=== PATIENT | male | born 1965 | race Caucasian/White ===

== ENCOUNTER 2017-02-07 16:11 | Emergency (ER) | payer OTHER ==
[2017-02-07 18:09] LABS: Urine Bacteria Absent (Absent); Urine Bilirubin Negative (Negative); Urine Glucose 3+(>=500 mg/dL) (Negative); Urine Nitrite Negative (Negative)
[2017-02-07 18:56] LABS: Hematocrit 46 % (42-52); Hemoglobin 15.3 g/dl (14.0-18.0); Mean Corpuscular HGB Conc 33 g/dl (31-36); Mean Corpuscular Hemoglobin 31 pg (27-31); Mean Corpuscular Volume 93 fL (80-94); Mean Platelet Volume 8 um3 (7.4-10.4); Red Blood Count 4.93 10^6/ul (4.0-5.4); Red Cell Distribution Width 14 % (10.5-15); White Blood Count 7.2 10^3/ul (3.5-10.8)
[2017-02-07 19:13] LABS: BUN/Creatinine Ratio 15.5 (8-20); Calcium 9.5 mg/dL (8.6-10.3); EGFR African American 149.2 (>60); EGFR Non-African American 116.1 (>60); Potassium 3.6 mmol/L (3.5-5.0)
[2017-02-07 19:43] VITALS: BP 141/88
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
== END 2017-02-07 19:42 | disposition home or self-care (01) ==
LOC: ED 16:11
DX: R33.9 Retention of urine, unspecified (principal); R30.0 Dysuria; R10.9 Unspecified abdominal pain; F17.210 Nicotine dependence, cigarettes, uncomplicated
CPT/HCPCS: 36415; 80048; 81003; 81015; 85027; 99282

== ENCOUNTER 2017-05-18 13:47 | Emergency (ER) | payer OTHER ==
[2017-05-18 15:37] VITALS: BP 161/81
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
== END 2017-05-18 16:35 | disposition home or self-care (01) ==
LOC: ED 13:47
DX: T23.071A Burn of unspecified degree of right wrist, initial encounter (principal); X08.8XXA Exposure to other specified smoke, fire and flames, initial encounter; Y93.89 Activity, other specified; Y92.9 Unspecified place or not applicable
CPT/HCPCS: 99282

== ENCOUNTER 2017-11-05 14:18 | Emergency (ER) | payer OTHER ==
[2017-11-05 14:26] VITALS: BP 143/74
--- OUTSIDE RECORDS SUMMARY | 2017-11-05 15:06 | XMS REPORT ---
:1965 External Reference #:[id number] Author Organization [facility] Address [address] [place] [address] Phone [phone] Care Team Providers Name Role Phone Louie Walker M.D. Primary Care Physician Unavailable Payers Type Date Identification Numbers Payment Provider Subscriber Commercial Policy Number: [id number] [facility] Cesar Loomis PayID: [id number] [place] [address] Problems Date Description Provider Status Onset: 02/08/2012 Alcohol dependence FITO BrownP-Alpa Active Onset: 02/08/2012 Tobacco user BRAD Brown-Alpa Active Onset: 02/08/2012 Type 2 diabetes mellitus FITO BrownP-Alpa Active Onset: 02/08/2012 Pure hypercholesterolemia Danielle Morse [employer] Active Onset: 02/08/2012 Depressive disorder FITO BrownP-Alpa Active Onset: 02/08/2012 Chronic ischemic heart disease Danielle Morse [employer]pa Active Onset: 02/08/2012 Essential hypertension Danielle Morse [employer] Active Onset: 12/07/2014 Carotid bruit FITO BrownP-C Active Family History Date Family Member(s) Problem(s) Comments : (age 67 Years) Father due to Cancer, Colon : (age 85 Years) Mother due to COPD Children 2 Children stepdaughters. 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 He is less often. working on cutting down by drinking Recreational Drug Use Denies Drug Use Smoking Patient is a current smoker, smokes every day Exercise Type/Frequency Does not exercise currently Exercise Type/Frequency , Allergies, Adverse Reactions, Alerts Date Description Reaction Status Severity Comments 09/08/2008 NKDA active Medications Medication Date Status Form Strength Qnty SIG Indications Ordering Provider Cyclobenzaprine 10/12 Active Tablets 10mg 30tabs take 1/2 M54.13 Shawnti R. HCL or 1 Storm, tablet [employer] by mouth three times a day for muscle spasm will cause tirednes s Ibuprofen 10/12 Active Tablets 800mg 60tabs take one M54.13 Angelwnti R. /2016 tablet Storm, by mouth [employer] every 8 hours with food as needed for pain Oxycodone-Acetam 09/10 Active Tablets 5-325mg 14tabs 1 by M54.32 Angelwnti R. inophen mouth [place], every 4 [employer] hours if needed for severe pain Wellbutrin SR 06/22 Active Tablets 150mg 60tabs 1 by Z72.0 Angelwnti R. /2016 ER 12HR mouth [place], twice [employer] daily Novolog Flexpen 02/23 Active Solution 100Unit/ML 15ml inject 5 E11.65 Angelwnti R. Pen-Injec units Storm, t under [employer] the skin three times a day before meals as directed Freestyle Lite 01/22 Active Strips 200unit use for E13.9 Shawnti R. Test s glucose Storm, monitori [employer] ng 5-6 times daily Lantus Solostar 01/05 Active Solution 100Unit/ML 30ml inject E11.40 Angelwnti R. /2016 Pen-Injec 40 units Storm, t once [employer] daily for diabetes Novofine 01/05 Active Misc 30G X 8 mm 100unit use E11.40 Angelwnti R. /2016 s daily Storm, with [employer] lantus pen to administ er insulin daily Gabapentin 10/24 Active Capsules 300mg 120caps take two M54.32 Shawnti R. /2015 by mouth Storm, in the [employer] morning and two by mouth before bed Marysol Contour 11/19 Active Kit W/Device 1units use to E11.65 Angelwnti R. Blood Glucose /2014 test Storm, Monitoring blood [employer] System sugar daily for diabetes Marysol Contour 11/19 Active Strips 100unit test 2 E11.65 Shawnti R. Blood Glucose /2014 s times Storm, Test Strips per day [employer] Lancets Ultra 11/19 Active Misc Thin 30G 100unit use to E11.65 Shawnti R. Thin 30G /2014 s test Storm, blood [employer] sugars twice daily and as needed Freestyle 04/21 Active Misc 100unit use to 250.00 Shawnti R. Lancets /2012 s test Storm, blood [employer] sugars 4-5 times daily as needed Freestyle Test 04/18 Active Strips 1Bottle use to E11.9 Shawnti R. /2009 check Storm, blood [employer] sugars four times daily Lancets--One 04/18 Active Misc 100unit use 250.00 Shawnti R. Touch Ultra Soft /2009 s daily as Storm, directed [employer] to test blood sugar Tamsulosin HCL Active Capsules 0.4mg 2 tabs Ese, /0000 daily MD Titus Metoprolol Active Tablets 25mg Unknown Succinate ER /0000 ER 24HR Aspir-81 00 Active Tablets 325mg 1 by Unknown /0000 DR mouth every day Combivent 08/20 Hx Aerosol 20-100mcg/A 12gm 2 puff J44.9 Ramón Respimat /2017 ct twice a [place], - day 10/12 Proair HFA 08/20 Hx Aerosol 108(90Base) 8.500gm 1-4 J44.9 Ramón /2017 mcg/Act puffs [place], - every 6 MD 10/12 hours needed Spacer, 08/20 Hx 1units 1 use to J44.9 Ramón Pediatric /2017 inhale [place], - medicati MD 10/12 ons Combivent 08/18 Hx Aerosol 18-103mcg/A 1units Inhale 2 ct puffs 2 - (two) 10/12 times a day Nicoderm CQ 06/22 Hx Patches 21mg/24HR 14units apply Z72.0 Shawnti R. 24HR one Storm, - patch to [facility] 10/12 skin, replace daily for up to 14 days then reduce to 14mg patch Nicoderm CQ 06/22 Hx Patches 14mg/24HR 28units apply Z72.0 Shawnti R. 24HR one Storm, - patch to [facility] 10/12 skin, replace daily for up to 28 days then go to 7mg Nicoderm CQ 06/22 Hx Patches 7mg/24HR 14units apply 1 Z72.[address] to [facility], - skin [facility]- 10/12 for 14 days Nicotrol 06/01 Hx Inhaler 10mg 336unit inhale 1 Haylie s imerg Francheska, - e Raffi, R.D. 08/20 inhaled orally repeated ly like a cigarett e 16 times per day as needed for smoking cessatio n Sulfamethoxazole 04/27 Hx Tablets 800-160mg 14tabs 1 by Haylie /Trimethoprim mouth Francheska, - twice a MIshan, R.D. Lidocaine-Transp 03/19 Hx Kit 4% 1units [facility] Storm, - area [facility]- 04/27 once daily, do not leave on for more than 12 hours Ibuprofen 01/05 Hx Tablets 800mg 90tabs take one M54.32 Shawnti R. /2016 tablet Storm, - by mouth [facility] 08/20 every hours with food as needed for pain Lidocaine 01/05 Hx Patches 5% 30units apply M54.32 Shawnti R. one [place], - patch to [employer] 03/19 low back every night, remove in the morning Prednisone 12/22 Hx Tablets 20mg 13tabs 3 by M54.17 Danielle RReagan mouth [place], - every [employer] 01/01 day x 2days, 2 by mouth every day x 2 days, 1 by mouth every day x 2 days, 1/2 by mouth every day x 2 days Thiamine HCL 12/22 Hx Tablets 100mg 90tabs 1 by M54.17 Danielle RReagan mouth [place], - every [employer] Folic + B12 12/22 Hx Tablets 800-1000mcg 90tabs 1 po M54.17 Danielle RReagan daily Storm, - [employer] 04/27 Metaxalone 07/07 Hx Tablets 800mg 30tabs 1 tab by M54.32 Mynor mouth Placida - three III, [employer] 10/24 times day for muscle spasm Guaifenesin 03/07 Hx Syrup 100mg/5ML 300unit 2 s teaspoon Placida - every III, [employer] 10/24 4- hours for cough and chest congesti on Augmentin 02/01 Hx Tablets 875-125mg 20tabs 1 take J20.9 by mouth [place], - tablet 10/24 every hours for 10 days for infectio n Cortisporin 12/30 Hx Solution 3.5-09913-1 60units 4 left H60.392 ear Heetjeffry, - christy VALIENTE 10/24 times day Clotrimazole 12/30 Hx Solution 1% 90units 3 drops B37.84 left ear Heetjeffry, - three 10/24 times day Glipizide 10/28 Hx Tablets 5mg 60tabs 1 po bid E11.65 Danielle Dockery for Storm, - diabetes [employer] 10/24 , take with food Bupropion HCL ER 10/11 Hx Tablets 150mg 90tabs take 1 F33.1 Danielle Dockery (XL) ER 24HR tablet Storm, - by mouth [employer] 02/01 morning Metformin HCL 10/11 Hx Tablets 500mg 60tabs take one E11.65 Danielle Dockery /2014 tablet Storm, - by mouth [employer] 10/28 twice a day with food Hydrocodone-Acet 07/29 Hx Tablets 5-325mg 30tabs 1 or 2 M25.511 Danielle Dockery aminophen /2014 po QHS Storm, - prn pain [employer] 10/11 Omeprazole 07/29 Hx Capsules 40mg 90caps 1 by K21.0 Danielle Dockery /2014 DR janett Morse, - every [employer] Amoxicillin/Clav 01/07 Hx Tablets 875-125mg 20tabs 1 by 486 Danielle Dockery ulanatchristina /2014 mouth Storm, Potassium - twice a [employer] 01/17 day for 10 days for infectio n Ventolin HFA 01/07 Hx Aerosol 108(90Base) 8gm inhale Mynor /2014 mcg/Act two Placida - puffs by III, [employer] 04/27 mouth every 4-6 hours as needed for wheezing /SOB Viagra 11/19 Hx Tablets 100mg 2tabs take N53.8 Danielle Dockery one-half Storm, - to one [employer] 10/11 tablet /2014 before intercou rse Levemir 11/19 Hx Solution 100Unit/ML 15ml inject E11.65 Danielle Dockery Flextouch Pen-Injec 10 units , - t before [employer] 10/11 bed, increase dose by 5 units every 3 days until fasting glucose is under 200 Novofine 11/19 Hx Misc 30G X 8 mm 50units use E11.65 Danielle Dockery /2014 daily Storm, - with [employer] 10/28 levimir flexpen Levitra 10/16 Hx Tablets 10mg 10tabs take 1 608.89 Danielle Dockery tablet Storm, - by mouth [employer] 10/16 as needed prior to intercou rse. Fluoxetine HCL 10/15 Hx Capsules 20mg 30caps 1 by F33.1 Danielle Dockery mouth Storm, - every [employer] Metformin HCL 10/15 Hx Tablets 500mg 60tabs take one 250.02 Shawnti R. tablet Storm, - by mouth [facility]- 11/19 twice a day with food Viagra 10/15 Hx Tablets 50mg 10tabs use 11/13 608.89 Shawnti R. to 1 tab Storm, - 1/2hr [facility]- 10/16 prior to activity Lidocaine 07/02 Hx Patches 5% 60units apply 726.19 Shawnti R. patch to Storm, - the [facility] 10/11 painful area before, remove in the morning, do not leave on for more than 12 hours. can apply up to 2 Voltaren 09/25 Hx Gel 1% 300gm apply Shawnti R. pea Storm, - sized [facility]- 10/11 amount of gel to the shoulder qid prn pain Tizanidine HCL 08/14 Hx Tablets 4mg 30tabs take one 728.85 Shawnti R. by mouth Storm, - before [facility] 10/11 bed if needed for pain and muscle spasm Naltrexone HCL 06/18 Hx Tablets 50mg 30tabs 1 po 303.90 Shawnti R. /2012 daily Storm, - [facility]- 07/02 Campral 06/16 Hx Tablets 333mg 90tabs 1 po tid 303.[address] Morse, - [facility]- 06/18 Nicoderm CQ 06/16 Hx Patches 21mg/24HR 14units apply 1 305.1 Shawnti R. 24HR patch to Storm, - skin, [facility]- 07/02 change /2013 daily for 14 days.the n go to 14mg dose Nicoderm CQ 06/16 Hx Patches 14mg/24HR 14units apply 305.1 Shawnti R. /2012 24HR one , - patch to [facility]- 07/02 skin, replace daily for 14 days, start after 21mg patches complete d. Nicoderm CQ 06/16 Hx Patches 7mg/24HR 14units apply 305.1 Shawnti R. /2012 24HR one Storm, - patch to [facility]- 07/02 skin, change daily for three weeks, start after 14mg dose is complete Fluoxetine HCL 06/16 Hx Capsules 40mg 30caps take 1 311 Shawnti R. capsule Brody, - once [employer] 07/02 daily for depressi on Fluoxetine HCL 05/08 Hx Capsules 20mg 90caps 1 po qd 311 Shawnti R. for Storm, - depressi [employer] 06/16 on Metformin HCL ER 05/08 Hx Tablets 500mg 30tabs take one 250.02 Shawnti R. ER 24HR tablet Brody, - by mouth [employer] 07/02 every day for diabetes Levemir Flexpen 04/21 Hx Solution 100Unit/ML 30ml inject 250.00 Shawnti R. 10 units , - daily [employer] 07/02 fatty tissue, increase dose by 2 units every other day until morning blood sugars are under 150 Flex Pen [place] 04/21 Hx 30units use with 250.00 Shawnti R. levmir Brody, - daily to [employer] 07/02 inject insulin Freestyle Test 04/21 Hx Strips 200unit use to E13.9 Haylie Strips s nadia Pritchard, - blood M.Shorty, R.D. 01/22 4-5 times daily Thiamine HCL 04/14 Hx Tablets 100mg 90tabs 1 po qd 303.90 Shawnti R. , - [employer] 07/02 Folic Acid 04/14 Hx Tablets 1mg 90tabs 1 po qd 303.90 Shawnti R. , - [employer] 07/02 Naproxen Ec 04/14 Hx Tablets 500mg 20tabs 1 po bid 451.[address] aleyda Morse, - needed [employer] 07/02 phlebiti sm, take with food Gentamicin 09/09 Hx Ointment 0.1% 1tube 1 cm 372.00 Shawnti R. colby Morse, - qid left [employer] 05/08 eye for 5 days or until resolved Azithromycin 01/25 Hx Tablets 250mg 6tabs take 2 461.8 Delmy tablets LoveReagan Hester, - po today M.D. 05/08 and tablet po daily days 2-5 Loratadine 01/25 Hx Tablets 10mg 30tabs 1 po qd 461.8 Delmy /2011 LoveReagan Hester, - M.D. 05/08 Chantix 06/26 Hx Tablets 0.5mg X 11 1month take by Angelwnti R. /2010 & 1 mg mouth as Storm, - X directed [employer] [employer] 05/08 Antabuse 12/01 Hx Tablets 500mg 30tabs 1 po qam 303.90 Shawnti R. [place], - [employer] 05/08 Nicoderm CQ 12/01 Hx Patches 21mg/24HR 14units apply 1 305.1 Shawnti R. 24HR patch to Storm, - skin, [employer] 05/08 change daily for 14 days.the n go to 14mg dose Nicoderm CQ 12/01 Hx Patches 14mg/24HR 14units apply 305.1 Shawnti R. 24HR one Storm, - patch to [employer] [employer] 05/08 skin, replace daily for 14 days, start after 21mg patches complete d. Nicoderm CQ 12/01 Hx Patches 7mg/24HR 14units apply 305.1 Shawnti R. 24HR one , - patch to [employer] 05/08 skin, change daily for two weeks, start after 14mg dose is complete Prozac 11/15 Hx Capsules 20mg 90caps 1 po qd 311 Shawnti R. /2010 for Storm, - depressi [employer] 05/08 on Aspirin 06/20 Hx Tablets 325mg 1 daily 414.9 Angelwnti R. /2009 for Storm, - heart [employer] 05/08 Carvedilol 06/20 Hx Tablets 3.125mg 1 po bid 414.9 Shawnti R. /2009 for Storm, - heart [employer] 05/08 Plavix 06/20 Hx Tablets 75mg 1 po qd 414.9 Angelwnti R. for Storm, - heart [employer] 05/08 Simvastatin 06/20 Hx Tablets 80mg 1 po qhs 414.9 Shawnti R. /2009 for Storm, - choleste [employer] 05/08 rol Metformin HCL ER 05/23 Hx Tablets 750mg 30tabs 1 po 250.00 Shawnti R. ER 24HR daily Storm, - for [employer] 05/08 Diabetes Glipizide ER 05/23 Hx Tablets 2.5mg 30tabs 1 po 250.00 Shawnti R. ER 24HR daily Storm, - for [employer] 05/08 diabetes Metformin HCL 05/02 Hx Tablets 500mg 30tabs 1 po qam 250.00 Shawnti R. ER 24HR for Storm, - diabetes [employer] 05/23 Omeprazole 04/18 Hx Tablets 20mg 30tabs on po 535.[address] seth-ac Brody, - for [employer] 06/20 stomach acid Freestyle 04/18 Hx Glucometer 1Meter use to 250.00 Shawnti R. Monitor /2009 test Storm, - blood [employer] 05/08 sugars Contour Blood 04/18 Hx Kit w/Device 1meter use as 250.00 Shawnti R. Glucose System /2009 directed Storm, - to test [employer] 04/18 blood sugar Zithromax Z-Rambo 11/30 Hx Tablets 250mg 6tabs 2 po on 466.0 Mariajose A. /2009 day 1, 1 [place], - po on [facility] 04/18 days 2- Augmentin 05/13 Hx Tablets 875mg 20tabs one po 522.5 Shawnti R. /2008 bid for Storm, - dental [employer] 05/23 infectio n Naprosyn Ec 05/13 Hx Tablets 500mg 60tabs 1 po bid 522.5 Shawnti R. /2008 with Storm, - food for [employer] 05/02 pain, /2009 stop taking if stomach pain develops Vicodin 05/13 Hx Tablets 5-500mg twenty 1-2 tabs 522.5 Shawnti R. /2008 po q6hr Storm, - prn pain [employer] 05/28 Chlorhexidine 05/13 Hx Solution 0.12% 1Bottle rinse 522.5 Shawnti R. Gluconate /2008 and spit Brody, - 10ml [employer] 04/18 twice daily for mouth bacteria Nicoderm CQ 03/15 Hx Patches 21mg/24HR 21units apply 1 305.1 Mariajose A. 24HR patch to [place], - skin [facility] 05/02 daily Nicotrol Inhaler 07/29 Hx Inhaler 10mg 1Box Use as 305.1 Mariajose A. /2007 Directed [place], - 6-16 [facility] 05/02 cartrid es per day Physical Therapy 07/29 Hx evaluate 724.5 Mariajose A. and [place] - treat [facility] 05/02 neck and back pain Ibuprofen 07/29 Hx Tablets 600mg 30tabs One PO 724.5 Mariajose A. bid with [place], - food [facility] 05/02 Chantix 06/12 Hx Misc Starter QS Use as 305.1 Mariajose A. Pack Directed [place] - [facility] 06/12 Chantix 06/12 Hx Misc Starter QS Use as 305.1 Mariajose A. Pack Directed [place], - [facility] 07/29 Prilosec OTC 01/22 Hx Tablets 20mg 60tabs 1 PO bid 530.81 Mariajose A. /2007 DR Porter, - [facility] 05/02 Metformin HCL 12/19 Hx Tablets 500mg 120tabs 2 PO bid 250.00 Mariajose A. /2007 as [place], - Directed [facility] 12/19 Januvia 12/19 Hx Tablets 100mg 30tabs 1 PO qd 250.00 Mariajose A. Tatyana Porter [facility] 05/02 Keflex 06/27 Hx Capsules 500mg 20caps One PO 250.00 Mariajose A. /2006 bid For [place], - 10 Days [facility] 07/11 Zithromax Z-Rambo 03/08 Hx Tablets 250mg 6tabs 2 po on 466.0 Mariajose A day 1, 1 [place], - po on [facility] 03/29 days 2- Robitussin A-c 03/08 Hx Syrup 100mg;10mg/ 8Oz one to 466.0 Mariajose 5ML two tsp [place], - po every [facility] 03/29 hours prn cough Vermox 01/14 Hx Chewtabs 100mg 2units one qd Mariajose x1 for [place], - pinworm, [facility] 03/29 x1 after 7 days Wellbutrin SR 12/13 Hx 3 150mg 60units 1 po bid 311 Mariajose [place], - [facility] 03/08 Paxil 10/18 Hx Tablets 20mg 30tabs 1 PO qd 311 Mariajose A [place], - [facility] 12/13 Glucophage 10/01 Hx Tablets 500mg 90tabs 1 before 250.00 Mariajose A breakfas [place], - t, 1 [facility] 06/12 before lunch, 1 before dinner Keftab 08/29 Hx Tablets 500mg 15tabs tab po 250.00 Esperanza /2006 tid ac VADIM Walter - 12/13 Protonix 18 Hx Tablets 40mg 250.00 Esperanza /2006 VADIM Walter - 12/13 Prilosec OTC 01/01 Hx Capsules 20mg 30caps 1 po 787.2 Mariajose A qday [place], - [facility] 12/26 530.81 Fluoxetine 01/10/2005 - Hx Capsules 20mg 30caps use 1 tabs 311 Nevin 10/18/2006 A day Raffi Becerra Z-Rambo 12/19/2004 - Hx Tablets 250mg 6tabs use 2 tabs Nevin 01/10/2005 on day 1, Sobhector, then 1 tab M.D. a day Lancets-Micro 05/24/2004 - Hx 60units use bid 250.00 Nevin let 05/08/2013 Raffi Becerra Accu-Chek 03/22/2004 - Hx Meter 1units use bid 250.00 Nevin Advantage 05/08/2013 Joyce Becerra M.D. Accucheck 03/22/2004 - Hx 100units use bid 250.00 Mariajose A. Comfort Curve 05/08/2013 [place] Test Strips [facility]. dx: diabetes mellitus Accu-Chek 03/22/2004 - Hx Lancets 100units use bid 250.00 Nevin Safe-T-Pro 05/08/2013 Jabier Becerra M.D. Glucotrol XL 03/18/2004 - Hx Tablets 10mg 30tabs use 1 tab 250.00 Mariajose A. 05/02/2010 once daily Jennifer Porter.N.P.CReagan Glucometer 12/15/2002 - Hx Ascensia 60units check fs Nevin Elite Test 12/19/2004 bid-tid as Agnes Becerra directed Raffi Eugene 12/15/2002 - Hx 60units use as 250.00 Nevin 05/08/2013 directed Raffi Becerra Ceftin 10/01/2002 - Hx Tablets 500mg 20tabs one bid x10 Aide Noe 03/16/2004 days Raffi Willams Albuterol 10/01/2002 - Hx Inhaler 17gm 2- puffs q Aide Noe Metered Dose 06/12/2008 4hrs prn Raffi Willams Inhaler wheezing Humibid DM 10/01/2002 - Hx Tablets 40tabs take two Aide Noe 03/16/2004 tablets by Raffi Willams mouth twice daily along with lots of liquids Ibuprofen 10/01/2002 - Hx 600mg 30units one po tid Aide P. Tablets 04/17/2005 with food Raffi Willams prn Lipitor - Hx Tablets ? 272.0 Unknown 11/26/2006 Plavix - Hx Tablets 75mg one po qd Unknown 05/02/2010 Metoprolol - Hx Tablets 50mg 1 po bid Unknown 07/11/2007 Lisinopril - Hx Tablets 5mg one po qd 401.9 Unknown 06/12/2008 Zocor - Hx Tablets 20mg 30tabs q po qd 272.0 Mariajose A. 05/02/2010 Tiffanie Porter Aspirin - Hx Gelcaps 325mg Unknown 05/02/2010 Metoprolol - Hx Tablets 100mg one po qd 401.9 Unknown 05/02/2010 Lisinopril - Hx Tablets 10mg 3 PO qd 401.9 Unknown 05/02/2010 Oxycodone-Ronny - Hx Tablets 5-325mg 1 by mouth Unknown taminophen 09/10/2017 every 6 hours as needed severe pain Vitamin C - Hx Tablets 500mg 1 by mouth Unknown 08/20/2017 every day Immunizations CPT Code Status Date Vaccine Lot # [id number] Given 08/20/2017 Pneumovax 23 (PPSV23) 65+ years or high risk 2 to [id number] 62 year old 46565 Given 08/20/2017 Influenza Virus Vaccine, Quadrivalent, 3 Yr > [id number], Preserv Free 44047 Given 04/19/2017 Tdap (Adacel) [id number] 28434 Given 12/19/2004 Tetanus 21044 Given 12/15/2004 Tetanus 20076 Refused 12/30/2015 Influenza Virus Vaccine, Quadrivalent, 3 Yr > Quad, Preserv Free Vital Signs Date Vital Result Comment 10/12/2017 BP Systolic 118 mmHg BP Diastolic 66 mmHg Heart Rate 84 /min Body Temperature 98.4 F O2 % BldC Oximetry 98 % 09/25/2017 Weight 160.00 lb Weight in kg's 72.576 BP Systolic 110 mmHg BP Diastolic 64 mmHg Heart Rate 76 /min Body Temperature 96.7 F Respiratory Rate 16 /min 09/10/2017 Weight 156.00 lb Weight in kg's 70.762 BP Systolic 120 mmHg BP Diastolic 60 mmHg Heart Rate 76 /min Body Temperature 98.4 F O2 % BldC Oximetry 98 % 08/20/2017 Weight 167.00 lb Weight in kg's 75.751 BP Systolic 120 mmHg BP Diastolic 70 mmHg Heart Rate 88 /min Body Temperature 99.1 F O2 % BldC Oximetry 97 % 06/22/2017 Weight 165.00 lb Weight in kg's 74.844 BP Systolic 138 mmHg BP Diastolic 78 mmHg Heart Rate 80 /min Body Temperature 98.4 F Respiratory Rate 16 /min 04/27/2017 Weight 170.00 lb Weight in kg's 77.112 BP Systolic 168 mmHg BP Diastolic 88 mmHg Heart Rate 103 /min Body Temperature 97.8 F Respiratory Rate 16 /min O2 % BldC Oximetry 98 % 04/19/2017 BP Systolic 148 mmHg BP Diastolic 80 mmHg Heart Rate 88 /min Body Temperature 98.6 F Respiratory Rate 20 /min 03/19/2017 Weight 168.00 lb Weight in kg's 76.205 BP Systolic 176 mmHg BP Diastolic 94 mmHg Heart Rate 88 /min Body Temperature 97.6 F Respiratory Rate 20 /min O2 % BldC Oximetry 99 % 02/23/2017 Weight 164.00 lb Weight in kg's 74.390 BP Systolic 130 mmHg BP Diastolic 78 mmHg Heart Rate 88 /min Body Temperature 97.7 F Respiratory Rate 20 /min 02/02/2017 Weight 170.00 lb Weight in kg's 77.112 BP Systolic 155 mmHg BP Diastolic 78 mmHg Heart Rate 88 /min 01/05/2017 BP Systolic 130 mmHg BP Diastolic 80 mmHg Heart Rate 92 /min Body Temperature 98.6 F 12/22/2016 Weight 174.00 lb Weight in kg's 78.926 BP Systolic 150 mmHg BP Diastolic 80 mmHg Heart Rate 94 /min Body Temperature 97.9 F Respiratory Rate 14 /min 10/24/2016 Weight 179.00 lb Weight in kg's 81.194 BP Systolic 142 mmHg BP Diastolic 88 mmHg Heart Rate 102 /min Body Temperature 97.7 F Respiratory Rate 18 /min Height 68 inches 5'8" BMI (Body Mass Index) 27.2 kg/m2 O2 % BldC Oximetry 99 % 07/07/2016 Weight 172.00 lb Weight in kg's 78.019 BP Systolic 130 mmHg BP Diastolic 82 mmHg Heart Rate 92 /min Body Temperature 99.2 F Respiratory Rate 32 /min 03/07/2016 Weight 169.00 lb Weight in kg's 76.658 BP Systolic 130 mmHg BP Diastolic 80 mmHg Heart Rate 96 /min Body Temperature 97.3 F O2 % BldC Oximetry 98 % 02/02/2016 Weight 170.00 lb with boots Weight in kg's 77.112 BP Systolic 134 mmHg BP Diastolic 80 mmHg Heart Rate 89 /min O2 % BldC Oximetry 98 % 01/25/2016 Weight 171.00 lb Weight in kg's 77.566 BP Systolic 126 mmHg BP Diastolic 68 mmHg Heart Rate 92 /min Body Temperature 100.2 F O2 % BldC Oximetry 98 % 12/30/2015 Weight 171.00 lb Weight in kg's 77.566 BP Systolic 136 mmHg BP Diastolic 80 mmHg Heart Rate 88 /min Body Temperature 97.4 F 10/28/2015 Weight 175.00 lb Weight in kg's 79.380 BP Systolic 150 mmHg BP Diastolic 80 mmHg Heart Rate 92 /min 10/11/2015 Weight 175.00 lb Weight in kg's 79.380 BP Systolic 150 mmHg BP Diastolic 90 mmHg Heart Rate 88 /min 10/04/2015 Weight 175.00 lb Weight in kg's 79.380 BP Systolic 140 mmHg BP Diastolic 74 mmHg Heart Rate 98 /min Body Temperature 98.4 F 07/29/2015 Weight 169.00 lb Weight in kg's 76.658 BP Systolic 160 mmHg BP Diastolic 90 mmHg Heart Rate 96 /min 02/04/2015 Weight 172.00 lb Weight in kg's 78.019 BP Systolic 120 mmHg BP Diastolic 80 mmHg Heart Rate 100 /min Body Temperature 97.9 F 01/07/2015 Weight 169.00 lb Weight in kg's 76.658 BP Systolic 160 mmHg BP Diastolic 80 mmHg Heart Rate 108 /min Body Temperature 98.9 F O2 % BldC Oximetry 99 % 12/07/2014 Weight 173.00 lb Weight in kg's 78.473 BP Systolic 158 mmHg BP Diastolic 82 mmHg Heart Rate 92 /min 11/19/2014 Weight 173.00 lb Weight in kg's 78.473 BP Systolic 150 mmHg BP Diastolic 78 mmHg Heart Rate 84 /min 10/15/2014 Weight 171.00 lb Weight in kg's 77.566 BP Systolic 136 mmHg BP Diastolic 72 mmHg Heart Rate 80 /min Height 68 inches 5'8" BMI (Body Mass Index) 26.0 kg/m2 07/02/2014 Weight 169.00 lb Weight in kg's 76.658 BP Systolic 128 mmHg BP Diastolic 74 mmHg Heart Rate 92 /min 09/25/2013 Weight 178.00 lb Weight in kg's 80.741 BP Systolic 132 mmHg BP Diastolic 92 mmHg Heart Rate 100 /min Body Temperature 98.3 F 08/14/2013 Weight 183.00 lb Weight in kg's 83.009 BP Systolic 140 mmHg BP Diastolic 84 mmHg Heart Rate 80 /min 06/16/2013 Weight 178.00 lb Weight in kg's 80.741 BP Systolic 150 mmHg BP Diastolic 70 mmHg Heart Rate 96 /min 05/08/2013 Weight 168.00 lb Weight in kg's 76.205 BP Systolic 140 mmHg BP Diastolic 80 mmHg Heart Rate 104 /min 04/21/2013 Weight 172.00 lb Weight in kg's 78.019 BP Systolic 152 mmHg BP Diastolic 84 mmHg Heart Rate 88 /min 04/14/2013 Weight 166.00 lb Weight in kg's 75.298 BP Systolic 150 mmHg BP Diastolic 80 mmHg Heart Rate 102 /min 09/23/2012 Weight 174.00 lb Weight in kg's 78.926 BP Systolic 154 mmHg BP Diastolic 64 mmHg Heart Rate 100 /min Body Temperature 99.0 F Height 68 inches 5'8" BMI (Body Mass Index) 26.5 kg/m2 O2 % BldC Oximetry 99 % 09/09/2012 Weight 173.00 lb Weight in kg's 78.473 BP Systolic 136 mmHg BP Diastolic 86 mmHg Heart Rate 100 /min Body Temperature 98.0 F 01/26/2012 Weight 184.00 lb Weight in kg's 83.462 BP Systolic 130 mmHg BP Diastolic 80 mmHg Heart Rate 100 /min Body Temperature 99.1 F Last Menstrual Period 0 O2 % BldC Oximetry 99 % At Room Air 12/01/2010 Weight 191.00 lb Weight in kg's 86.638 BP Systolic 128 mmHg BP Diastolic 68 mmHg Heart Rate 85 /min O2 % BldC Oximetry 98 % 11/15/2010 Weight 190.00 lb Weight in kg's 86.184 BP Systolic 142 mmHg BP Diastolic 84 mmHg Heart Rate 92 /min 07/21/2010 Weight 182.00 lb With Shoes On Weight in kg's 82.555 BP Systolic 102 mmHg BP Diastolic 70 mmHg Heart Rate 62 /min 06/20/2010 Weight 182.00 lb Weight in kg's 82.555 BP Systolic 110 mmHg BP Diastolic 68 mmHg Heart Rate 104 /min 05/23/2010 Weight 172.00 lb Weight in kg's 78.019 BP Systolic 126 mmHg BP Diastolic 70 mmHg Heart Rate 112 /min 05/02/2010 Weight 170.00 lb Weight in kg's 77.112 BP Systolic 140 mmHg BP Diastolic 98 mmHg Heart Rate 100 /min 04/18/2010 Weight 168.00 lb Weight in kg's 76.205 BP Systolic 144 mmHg BP Diastolic 90 mmHg Heart Rate 112 /min 11/30/2009 Weight 184.00 lb Weight in kg's 83.462 BP Systolic 150 mmHg BP Diastolic 96 mmHg Heart Rate 110 /min Body Temperature 98.1 F O2 % BldC Oximetry 99 % 05/13/2009 Weight 192.00 lb Weight in kg's 87.091 BP Systolic 138 mmHg BP Diastolic 70 mmHg Heart Rate 78 /min Body Temperature 98.2 F 03/15/2009 Weight 199.00 lb Weight in kg's 90.266 BP Systolic 162 mmHg BP Diastolic 100 mmHg Heart Rate 96 /min 09/08/2008 Weight 201.00 lb Weight in kg's 91.174 BP Systolic 28 mmHg BP Diastolic 80 mmHg Heart Rate 76 /min Height 68 inches 5'8" BMI (Body Mass Index) 30.6 kg/m2 08/31/2008 Weight 203.00 lb Weight in kg's 92.081 BP Systolic 100 mmHg BP Diastolic 68 mmHg Heart Rate 78 /min Height 68 inches 5'8" BMI (Body Mass Index) 30.9 kg/m2 07/29/2008 Weight 197.00 lb Weight in kg's 89.359 BP Systolic 148 mmHg BP Diastolic 80 mmHg Heart Rate 72 /min Height 68 inches 5'8" BMI (Body Mass Index) 30.0 kg/m2 06/12/2008 Weight 193.00 lb Weight in kg's 87.545 BP Systolic 116 mmHg BP Diastolic 70 mmHg Heart Rate 76 /min Height 68 inches 5'8" BMI (Body Mass Index) 29.3 kg/m2 01/23/2008 Weight 208.00 lb Weight in kg's 94.349 BP Systolic 104 mmHg BP Diastolic 62 mmHg Heart Rate 72 /min Height 68 inches 5'8" BMI (Body Mass Index) 31.6 kg/m2 12/19/2007 Weight 206.00 lb Weight in kg's 93.442 BP Systolic 116 mmHg BP Diastolic 74 mmHg Heart Rate 75 /min Height 68 inches 5'8" BMI (Body Mass Index) 31.3 kg/m2 Last Menstrual Period 0 O2 % BldC Oximetry 98 % 08/13/2007 Weight 197.00 lb Weight in kg's 89.359 BP Systolic 120 mmHg BP Diastolic 60 mmHg Heart Rate 72 /min Height 68 inches 5'8" BMI (Body Mass Index) 30.0 kg/m2 07/11/2007 Weight 194.00 lb Weight in kg's 87.998 BP Systolic 118 mmHg BP Diastolic 70 mmHg Heart Rate 84 /min Body Temperature 97.0 F oral Height 68 inches 5'8" BMI (Body Mass Index) 29.5 kg/m2 06/27/2007 Weight 196.00 lb PT States Down 6 LBS Since Last Visit Weight in kg's 88.906 BP Systolic 132 mmHg BP Diastolic 90 mmHg Heart Rate 88 /min Body Temperature 97.5 F Height 68 inches 5'8" BMI (Body Mass Index) 29.8 kg/m2 04/03/2007 Weight 202.00 lb Weight in kg's 91.627 BP Systolic 140 mmHg BP Diastolic 90 mmHg Heart Rate 80 /min Height 68 inches 5'8" BMI (Body Mass Index) 30.7 kg/m2 03/08/2007 Weight 202.00 lb Weight in kg's 91.627 BP Systolic 122 mmHg BP Diastolic 60 mmHg Heart Rate 80 /min Body Temperature 97.0 F Height 68 inches 5'8" BMI (Body Mass Index) 30.7 kg/m2 01/03/2007 Weight 206.00 lb Weight in kg's 93.442 BP Systolic 150 mmHg BP Diastolic 82 mmHg Height 68 inches 5'8" BMI (Body Mass Index) 31.3 kg/m2 12/13/2006 Weight 207.00 lb Weight in kg's 93.895 BP Systolic 112 mmHg BP Diastolic 68 mmHg Heart Rate 88 /min Height 68 inches 5'8" BMI (Body Mass Index) 31.5 kg/m2 11/08/2006 Weight 205.00 lb Weight in kg's 92.988 BP Systolic 110 mmHg BP Diastolic 68 mmHg Heart Rate 76 /min Height 68 inches 5'8" BMI (Body Mass Index) 31.2 kg/m2 10/18/2006 Weight 202.00 lb Weight in kg's 91.627 BP Systolic 148 mmHg BP Diastolic 84 mmHg Heart Rate 78 /min Height 68 inches 5'8" BMI (Body Mass Index) 30.7 kg/m2 10/08/2006 Weight 202.00 lb Weight in kg's 91.627 BP Systolic 122 mmHg BP Diastolic 80 mmHg Heart Rate 80 /min Respiratory Rate 18 /min Height 68 inches 5'8" BMI (Body Mass Index) 30.7 kg/m2 10/01/2006 Weight 201.00 lb Weight in kg's 91.174 BP Systolic 122 mmHg BP Diastolic 70 mmHg Heart Rate 80 /min Respiratory Rate 18 /min Height 68 inches 5'8" BMI (Body Mass Index) 30.6 kg/m2 08/29/2006 Weight 203.00 lb Weight in kg's 92.081 BP Systolic 130 mmHg BP Diastolic 80 mmHg Heart Rate 80 /min Respiratory Rate 18 /min Height 68 inches 5'8" BMI (Body Mass Index) 30.9 kg/m2 01/12/2006 Weight 204.00 lb Weight in kg's 92.534 BP Systolic 116 mmHg BP Diastolic 72 mmHg Heart Rate 80 /min Height 68 inches 5'8" BMI (Body Mass Index) 31.0 kg/m2 01/01/2006 Weight 207.00 lb Weight in kg's 93.895 BP Systolic 120 mmHg BP Diastolic 84 mmHg Heart Rate 82 /min 04/17/2005 Weight 198.00 lb Weight in kg's 89.813 BP Systolic 138 mmHg BP Diastolic 72 mmHg Heart Rate 84 /min 01/31/2005 Weight 203.00 lb Weight in kg's 92.081 BP Systolic 120 mmHg BP Diastolic 70 mmHg Heart Rate 68 /min 01/10/2005 Weight 203.00 lb Weight in kg's 92.081 BP Systolic 148 mmHg BP Diastolic 90 mmHg Heart Rate 92 /min 12/19/2004 Weight 200.00 lb Weight in kg's 90.720 BP Systolic 130 mmHg BP Diastolic 70 mmHg Body Temperature 97.0 F 08/08/2004 Weight 206.00 lb Weight in kg's 93.442 BP Systolic 120 mmHg BP Diastolic 70 mmHg Heart Rate 80 /min 06/20/2004 Weight 205.00 lb Weight in kg's 92.988 BP Systolic 124 mmHg BP Diastolic 80 mmHg 05/04/2004 Weight 202.00 lb Weight in kg's 91.627 BP Systolic 141 mmHg BP Diastolic 97 mmHg Heart Rate 92 /min Respiratory Rate 18 /min 04/01/2004 Weight 201.00 lb Weight in kg's 91.174 BP Systolic 120 mmHg BP Diastolic 80 mmHg 03/18/2004 Weight 203.00 lb Weight in kg's 92.081 BP Systolic 130 mmHg BP Diastolic 82 mmHg 01/27/2004 Weight 202.00 lb Weight in kg's 91.627 BP Systolic 140 mmHg BP Diastolic 94 mmHg 06/18/2003 Weight 207.00 lb Weight in kg's 93.895 BP Systolic 130 mmHg BP Diastolic 82 mmHg Heart Rate 70 /min Body Temperature 96.9 F Respiratory Rate 18 /min 02/20/2003 Weight 203.00 lb Weight in kg's 92.081 BP Systolic 124 mmHg BP Diastolic 88 mmHg Heart Rate 88 /min Respiratory Rate 18 /min Height 67 inches BMI (Body Mass Index) 31.8 kg/m2 01/05/2003 Weight 205.00 lb Weight in kg's 93.0 BP Systolic 110 mmHg BP Diastolic 80 mmHg Respiratory Rate 18 /min 12/03/2002 Weight 205.00 lb Weight in kg's 93.0 BP Systolic 108 mmHg BP Diastolic 66 mmHg Heart Rate 80 /min Body Temperature 97.6 F 10/01/2002 Weight 212.00 lb Weight in kg's 96.2 BP Systolic 102 mmHg BP Diastolic 80 mmHg Body Temperature 101.0 F 04/29/2002 Weight 223.00 lb BP Systolic 146 mmHg BP Diastolic 90 mmHg Results Test Date Test Result H/L Range Note Laboratory test finding 05/23/2017 Point of Care Glucose 211 mg/dL High 74 -106 1 Urine Microalbumin 04/27/2017 Urine Creatinine 82.29 mg/dL Random Ur Microalbumin (mg/L) 39.2 mg/L Urine Microalbumin/Creatinine 47.6 ug/mg High <31 Laboratory test finding 04/27/2017 Urine Culture SEE RESULT BELOW 2, 3 Urine DIP 04/27/2017 Leukocytes neg Neg Urine Nitrites neg Neg Urobilinogen norm Norm Total Protein, Urine neg Neg Urine pH 6 5-6 Urine Blood 50 High Neg Specific [place] 1.015 1.01-1.02 Urine Ketones 1+ High Neg Urine Bilirubin 1+ High Neg Urine Glucose 1000 High Norm Urine Microalbumin Random 04/19/2017 Ur Microalbumin (mg/L) 36.0 mg/L 4 Urine Creatinine 89.97 mg/dL 4 Urine Microalbumin/Creatinine 40.0 ug/mg High <31 4 Laboratory test 04/19/2017 PSA Screening 2.749 ng/mL 0-4.000 5 finding Laboratory test 04/19/2017 Hemoglobin A1c 7.8 % High Less than 6.0 6 finding (Glyco HGB) Xray 04/17/2017 Lumbosacral Spine, 4 <pending&gt Views ; Basic Metabolic 02/07/2017 Sodium 136 mmol/L 133-145 Panel Potassium 3.6 mmol/L 3.5-5.0 Chloride 103 mmol/L 101-111 Co2 Carbon Dioxide 26 mmol/L 22-32 Anion Gap 7 mmol/L 2-11 Glucose 127 mg/dL High 70-100 Blood Urea Nitrogen 11 mg/dL 6-24 Creatinine 0.71 mg/dL 0.67-1.17 BUN/Creatinine Ratio 15.5 8-20 Calcium 9.5 mg/dL 8.6-10.3 Egfr Non- 116.1 >60 Egfr 149.2 >60 7 CBC No Diff 02/07/2017 White Blood Count 7.2 10^3/uL 3.5-10.8 Red Blood Count 4.93 10^6/uL 4.0-5.4 Hemoglobin 15.3 g/dL 14.0-18.0 Hematocrit 46 % 42-52 Mean Corpuscular Volume 93 fL 80-94 Mean Corpuscular Hemoglobin 31 pg 27-31 Mean Corpuscular HGB Conc 33 g/dL 31-36 Red Cell Distribution Width 14 % 10.5-15 Platelet Count 192 10^3/uL 150-450 Mean Platelet Volume 8 um3 7.4-10.4 Urinalysis Profile 02/07/2017 Urine Color Yellow Urine Appearance Clear Urine Specific [place] 1.021 1.010-1.030 Urine pH 6.0 5-9 Urine Urobilinogen Negative Negative Urine Ketones Trace Negative Urine Protein 1+(30 mg/dL) Negative Urine Leukocytes Negative Negative Urine Blood 1+ Negative Urine Nitrite Negative Negative Urine Bilirubin Negative Negative Urine Glucose 3+(>=500 mg/dL) Negative Urine White Blood Cell Trace(0-5/hpf) Absent Urine Red Blood Cell 1+(3-5/hpf) Absent Urine Bacteria Absent Absent Flu Test A, B, Or A & B,Binaxn 01/25/2016 Influenza A Antigen NEG Influenza B Antigen NEG Laboratory test finding 10/11/2015 Glucose By Moniter 266 High 78-110 Basic Metabolic Panel 10/11/2015 Sodium 132 mmol/L Low 133-145 Potassium 4.5 mmol/L 3.5-5.0 Chloride 98 mmol/L Low 101-111 Co2 Carbon Dioxide 27 mmol/L 22-32 Anion Gap 7 mmol/L 2-11 Glucose 329 mg/dL High 70-100 Blood Urea Nitrogen 16 mg/dL 6-24 Creatinine 0.86 mg/dL 0.67-1.17 BUN/Creatinine Ratio 18.6 8-20 Calcium 9.6 mg/dL 8.6-10.3 Egfr Non- 93.4 >60 Egfr 120.1 >60 8 Laboratory test 10/11/2015 Hemoglobin A1c (Glyco 10.7 % High Less than 6.0 9 finding HGB) Laboratory test 10/15/2014 TSH (Thyroid 1.03 IU/mL 0.34-5.60 finding Stimulating Horm) Hemoglobin A1c 10.5 % High Less than 6.0 10 Lipid Profile (Trig/Chol/HDL) 10/15/2014 Triglycerides 240 mg/dL 11 Cholesterol 189 mg/dL 12 HDL Cholesterol 52.9 mg/dL 13 LDL Cholesterol 88 mg/dL 14 Comp Metabolic Panel 10/15/2014 Sodium 135 mmol/L 133-145 Potassium 4.2 mmol/L 3.5-5.0 Chloride 99 mmol/L Low 101-111 Co2 Carbon Dioxide 29 mmol/L 22-32 Anion Gap 7 mmol/L 2-11 Glucose 308 mg/dL High 70-100 Blood Urea Nitrogen 16 mg/dL 6-24 Creatinine 0.83 mg/dL 0.67-1.17 BUN/Creatinine Ratio 19.3 8-20 Calcium 9.2 mg/dL 8.6-10.3 Total Protein 6.1 g/dL Low 6.4-8.9 Albumin 4.0 g/dL 3.2-5.2 Globulin 2.1 g/dL 2-4 Albumin/Globulin Ratio 1.9 1-3 Total Bilirubin 0.40 mg/dL 0.2-1.0 Alkaline Phosphatase 84 U/L 34-104 Alt 14 U/L 7-52 Ast 13 U/L 13-39 Egfr Non- 97.7 >60 Egfr 125.6 >60 15 CBC No Diff 10/15/2014 White Blood Count 6.8 10^3/uL 4.8-10.8 Red Blood Count 4.74 10^6/uL 4.0-5.4 Hemoglobin 15.2 g/dL 14.0-18.0 Hematocrit 44 % 42-52 Mean Corpuscular Volume 93 fL 80-94 Mean Corpuscular Hemoglobin 32 pg High 27-31 Mean Corpuscular HGB Conc 35 g/dL 31-36 Red Cell Distribution Width 13 % 10.5-15 Platelet Count 243 10^3/uL 150-450 Mean Platelet Volume 8 um3 7.4-10.4 Laboratory test finding 04/14/2013 Glucose By Moniter 432 High 78-110 Laboratory test finding 04/14/2013 Vitamin B12 592 pg/mL 180-914 16 CBC No Diff 04/14/2013 White Blood Count 6.3 10^3/uL 4.8-10.8 Red Blood Count 4.88 10^6/uL 4.0-5.4 Hemoglobin 16.5 g/dL 14.0-18.0 Hematocrit 47 % 42-52 Mean Corpuscular Volume 97 fL High 80-94 Mean Corpuscular Hemoglobin 34 pg High 27-31 Mean Corpuscular HGB Conc 35 g/dL 31-36 Red Cell Distribution Width 14 % 10.5-15 Platelet Count 253 10^3/uL 150-450 Mean Platelet Volume 9 um3 7.4-10.4 Comp Metabolic Panel 04/14/2013 Sodium 134 mmol/L 133-145 Potassium 4.2 mmol/L 3.5-5.0 Chloride 98 mmol/L Low 101-111 Co2 Carbon Dioxide 28.0 mmol/L 22-32 Anion Gap 8.0 mmol/L 2-11 Glucose 442 mg/dL High 70-100 Blood Urea Nitrogen 10 mg/dL 6-24 Creatinine 0.80 mg/dL 0.50-1.40 BUN/Creatinine Ratio 12.5 8-20 Calcium 9.6 mg/dL 8.1-9.9 Total Protein 6.4 g/dL 6.2-8.1 Albumin 4.1 g/dL 3.6-5.4 Globulin 2.3 g/dL 2-4 Albumin/Globulin Ratio 1.8 1-3 Total Bilirubin 0.5 mg/dL 0.4-1.5 Alkaline Phosphatase 97 U/L 30-110 Alt 33 U/L 14-54 Ast 21 U/L 12-42 Egfr Non- 102.7 >60 Egfr 132.1 >60 17 Laboratory test finding 04/14/2013 Hemoglobin A1c 10.9 % High Less than 6.0 18 Lipid Profile 04/14/2013 Triglycerides 138 mg/dL 40-200 (Trig/Chol/HDL) Cholesterol 226 mg/dL High Less than 200 HDL Cholesterol 59 mg/dL 40-60 19 Cholesterol/HDL Ratio 3.8 Average 1-4.44 LDL Cholesterol 139.4 High Less Than 100 20 Laboratory test finding 04/14/2013 TSH (Thyroid Stimulating 1.12 miu/mL 0.34-5.60 21 Horm) PSA Screening 0.7 ng/mL 0-4.0 22 Urinalysis 12/22/2012 Urine Color Yellow Urine Appearance Clear Urine Specific [place] 1.034 High 1.010-1.030 Urine Esterase Negative Negative Urine Nitrate Negative Negative Urine Urobilinogen Negative E.U./dL Negative Urine Protein Negative mg/dL Negative Urine pH 5.0 5-9 Urine Blood Negative Negative Urine Ketones Negative mg/dL Negative Urine Bilirubin Negative Negative Urine Glucose 3+ mg/dL Negative CBC Auto Diff 12/22/2012 White Blood Count 9.2 10^3/uL 4.8-10.8 Red Blood Count 5.03 10^6/uL 4.0-5.4 Hemoglobin 16.0 g/dL 14.0-18.0 Hematocrit 47 % 42-52 Mean Corpuscular Volume 94 fL 80-94 Mean Corpuscular Hemoglobin 32 pg High 27-31 Mean Corpuscular HGB Conc 34 g/dL 31-36 Red Cell Distribution Width 14 % 10.5-15 Platelet Count 245 10^3/uL 150-450 Mean Platelet Volume 8 um3 7.4-10.4 Abs Neutrophils 6.0 10^3/uL 1.5-7.7 Abs Lymphocytes 2.3 10^3/uL 1.0-4.8 Abs Monocytes 0.7 10^3/uL 0-0.8 Abs Eosinophils 0.2 10^3/uL 0-0.6 Abs Basophils 0.1 10^3/uL 0-0.2 Abs Nucleated RBC 0.01 10^3/uL Granulocyte % 64.7 % 38-83 Lymphocyte % 25.0 % 25-47 Monocyte % 7.8 % 1-9 Eosinophil % 1.7 % 0-6 Basophil % 0.8 % 0-2 Nucleated Red Blood Cells % 0.1 Laboratory test finding 12/22/2012 Inr 0.80 Low 0.87-0.97 23 Activated Partial Thrombo Time 33.1 sec 22.18-37.18 Comp Metabolic Panel 12/22/2012 Sodium 130 mmol/L Low 133-145 Potassium 4.5 mmol/L 3.5-5.0 Chloride 98 mmol/L Low 101-111 Co2 Carbon Dioxide 25.0 mmol/L 22-32 Anion Gap 7.0 mmol/L 2-11 Glucose 354 mg/dL High 70-100 Blood Urea Nitrogen 11 mg/dL 6-24 Creatinine 0.90 mg/dL 0.50-1.40 BUN/Creatinine Ratio 12.2 8-20 Calcium 9.1 mg/dL 8.1-9.9 Total Protein 6.5 g/dL 6.2-8.1 Albumin 4.0 g/dL 3.6-5.4 Globulin 2.5 g/dL 2-4 Albumin/Globulin Ratio 1.6 1-3 Total Bilirubin 0.6 mg/dL 0.4-1.5 Alkaline Phosphatase 96 U/L 30-110 Alt 24 U/L 14-54 Ast 21 U/L 12-42 Egfr Non- 89.7 >60 Egfr 115.3 >60 24 Manual Differential 11/15/2010 Polysegmented Neutrophil 56 % 38-83 Lymphocyte 33 % 25-47 Monocyte 5 % 0-13 Eosinophil 6 % 0-6 Absolute Neutrophil Count 4.3 RBC Morphology NORMAL Lipid Profile (Trig/Chol/HDL) 11/15/2010 Triglyceride 242 mg/dL High 40- 200 Cholesterol 215 mg/dL High Less Than 200 25 High Density Lipoprotein 58 mg/dL 40-60 26 Cholesterol/HDL Ratio 3.71 AVERAGE 1-4.97 Low Density Lipoprotein 109 mg/dL High Less Than 100 27 Statin 11/15/2010 Ast (Sgot) 21 U/L 12-42 Alt (SGPT) 24 U/L 17-63 Laboratory test finding 11/15/2010 Hemoglobin A1c 8.3 % High Less Than 6.0 28 Comp Metabolic Panel 11/15/2010 Sodium 138 mmol/L 135-145 Potassium 4.3 mmol/L 3.5-5.0 Chloride 101 mmol/L 101-111 Co2 (Carbon Dioxide) 28.0 mmol/L 22-32 Anion Gap 9.0 mmol/L 2-11 29 Glucose 235 mg/dL High 70-100 BUN 12 mg/dL 6-24 Creatinine 0.90 mg/dL 0.50-1.40 One Over Creatinine 1.10 BUN/Creatinine Ratio 13.3 8-20 Calcium 9.6 mg/dL 8.1-9.9 Total Protein 6.3 GM/DL 6.2-8.1 Albumin 4.0 GM/DL 3.6-5.4 Globulin 2.3 GM/DL 2-4 Albumin/Globulin Ratio 1.7 1-3 Bilirubin Total 0.5 mg/dL 0.4-1.5 30 Alkaline Phosphatase 83 U/L 39-117 eGFR Non- 96.1 > 60 eGFR 116.3 > 60 31 CBC With Electronic Diff 11/15/2010 White Blood Count 7.8 CUMM 4.8-10.8 Red Cell Count 4.78 CUMM 4.6-6.2 Hemoglobin 15.6 g/dL 14.0-18.0 Hematocrit 46 % 42-52 Mean Corpuscular Volume 95 um3 High 80-94 Mean Corpuscular Hemoglob 33 pg High 27-31 Mean Corpuscular HGB Cone 34 g/dL 32-36 Redcell Distribution WDTH 14 % 10.5-15 Platelet Count 268 CUMM 150-450 Mean Platelet Volume 8.1 um3 7.4-10.4 32 Laboratory test finding 11/15/2010 Glucose By Moniter 246 High 78-110 CBC With Electronic Diff 07/15/2010 White Blood Count 6.6 CUMM 4.8-10.8 Red Cell Count 4.41 CUMM Low 4.6-6.2 Hemoglobin 14.4 g/dL 14.0-18.0 Hematocrit 42 % 42-52 Mean Corpuscular Volume 96 um3 High 80-94 Mean Corpuscular Hemoglob 33 pg High 27-31 Mean Corpuscular HGB Cone 34 g/dL 32-36 Redcell Distribution WDTH 14 % 10.5-15 Platelet Count 262 CUMM 150-450 Mean Platelet Volume 7.1 um3 Low 7.4-10.4 Gran % 53.6 % 38-83 Lymph % 30.0 % 25-47 Mononuclear % 10.7 % High 1-9 Eosinophil % 5.2 % 0-6 Basophil % 0.5 % 0-2 Abs Lymphs 2.0 1.0-4.8 Abs Mononuclear 0.7 0-0.8 Absolute Neutrophil Count 3.5 1.5-7.7 Abs Eosinophils 0.3 0-0.6 Abs Basophils 0 0-0.2 Comp Metabolic Panel 07/15/2010 Sodium 135 mmol/L 135-145 Potassium 4.1 mmol/L 3.5-5.0 Chloride 104 mmol/L 101-111 Co2 (Carbon Dioxide) 24.0 mmol/L 22-32 Anion Gap 7.0 mmol/L 2-11 33 Glucose 142 mg/dL High 70-100 34 BUN 11 mg/dL 6-24 Creatinine 0.70 mg/dL 0.50-1.40 One Over Creatinine 1.40 BUN/Creatinine Ratio 15.7 8-20 Calcium 9.2 mg/dL 8.1-9.9 Total Protein 6.4 GM/DL 6.2-8.1 Albumin 3.9 GM/DL 3.6-5.4 Globulin 2.5 GM/DL 2-4 Albumin/Globulin Ratio 1.6 1-3 Bilirubin Total 0.5 mg/dL 0.4-1.5 35 Alkaline Phosphatase 71 U/L 39-117 Alt (SGPT) 23 U/L 17-63 Ast (Sgot) 22 U/L 12-42 eGFR Non- 128.5 > 60 eGFR 155.5 > 60 36 Lipid Profile (Trig/Chol/HDL) 07/15/2010 Triglyceride 104 mg/dL 40-200 Cholesterol 150 mg/dL Less Than 200 37 High Density Lipoprotein 44 mg/dL 40-60 38 Cholesterol/HDL Ratio 3.41 AVERAGE 1-4.97 Low Density Lipoprotein 85 mg/dL Less Than 100 39 Laboratory test finding 07/15/2010 Hemoglobin A1c 7.9 % High Less Than 6.0 40 Comp Metabolic Panel 05/13/2010 Sodium 135 mmol/L 135-145 Potassium 4.2 mmol/L 3.5-5.0 Chloride 103 mmol/L 101-111 Co2 (Carbon Dioxide) 23.0 mmol/L 22-32 Anion Gap 9.0 mmol/L 2-11 41 Glucose 345 mg/dL High 70-100 42 BUN 13 mg/dL 6-24 Creatinine 0.73 mg/dL 0.50-1.40 One Over Creatinine 1.30 BUN/Creatinine Ratio 17.8 8-20 Calcium 10.0 mg/dL High 8.1-9.9 43 Total Protein 7.4 GM/DL 6.2-8.1 Albumin 4.0 GM/DL 3.6-5.4 Globulin 3.4 GM/DL 2-4 Albumin/Globulin Ratio 1.2 1-3 Bilirubin Total 0.6 mg/dL 0.4-1.5 44 Alkaline Phosphatase 105 U/L 39-117 Alt (SGPT) 27 U/L 17-63 Ast (Sgot) 28 U/L 12-42 eGFR Non- 122.9 > 60 eGFR 148.8 > 60 45 Laboratory test finding 05/13/2010 Troponin-I (TnI) 0.13 NG/ML High 46 PT W/Inr 05/13/2010 Inr 0.82 Low 0.97-1.03 47 Protime 9.6 SEC Low 11.5-12.2 48 Laboratory test finding 05/13/2010 PTT (Aptt) 30.4 25.15-38.53 49 CBC With Electronic Diff 05/13/2010 White Blood Count 6.5 CUMM 4.8-10.8 Red Cell Count 5.72 CUMM 4.6-6.2 Hemoglobin 17.5 g/dL 14.0-18.0 Hematocrit 53 % High 42-52 Mean Corpuscular Volume 94 um3 80-94 Mean Corpuscular Hemoglob 31 pg 27-31 Mean Corpuscular HGB Cone 33 g/dL 32-36 Redcell Distribution WDTH 13 % 10.5-15 Platelet Count 270 CUMM 150-450 Mean Platelet Volume 7.5 um3 7.4-10.4 Gran % 46.9 % 38-83 Lymph % 39.8 % 25-47 Mononuclear % 10.6 % High 1-9 Eosinophil % 2.2 % 0-6 Basophil % 0.5 % 0-2 Abs Lymphs 2.6 1.0-4.8 Abs Mononuclear 0.7 0-0.8 Absolute Neutrophil Count 3.1 1.5-7.7 Abs Eosinophils 0.1 0-0.6 Abs Basophils 0 0-0.2 Comp Metabolic Panel 04/18/2010 Sodium 135 mmol/L 135-145 Potassium 4.5 mmol/L 3.5-5.0 Chloride 98 mmol/L Low 101-111 Co2 (Carbon Dioxide) 27.0 mmol/L 22-32 Anion Gap 10.0 mmol/L 2-11 50 Glucose 382 mg/dL High 70-100 51 BUN 11 mg/dL 6-24 Creatinine 1.20 mg/dL 0.50-1.40 One Over Creatinine 0.80 BUN/Creatinine Ratio 9.2 8-20 Calcium 9.5 mg/dL 8.1-9.9 52 Total Protein 6.6 GM/DL 6.2-8.1 Albumin 3.9 GM/DL 3.6-5.4 Globulin 2.7 GM/DL 2-4 Albumin/Globulin Ratio 1.4 1-3 Bilirubin Total 0.7 mg/dL 0.4-1.5 53 Alkaline Phosphatase 113 U/L 39-117 Alt (SGPT) 26 U/L 17-63 Ast (Sgot) 26 U/L 12-42 eGFR Non- 69.3 > 60 eGFR 83.8 > 60 54 Lipid Profile (Trig/Chol/HDL) 04/18/2010 Triglyceride 187 mg/dL 40-200 Cholesterol 225 mg/dL High Less Than 200 55 High Density Lipoprotein 49 mg/dL 40-60 56 Cholesterol/HDL Ratio 4.59 AVERAGE 1-4.97 Low Density Lipoprotein 139 mg/dL High Less Than 100 57 Laboratory test finding 04/18/2010 Hemoglobin A1c 11.7 % High Less Than 6.0 58 TSH 0.82 MIU/ML 0.34-5.60 Liver Function Panel 04/18/2010 Bilirubin Direct 0.2 mg/dL 0.1-0.5 Indirect Bilirubin 0.5 mg/dL 0.1-0.75 Laboratory test finding 04/18/2010 Vitamin B12 455 pg/mL 180-914 CBC With Manual Diff 04/18/2010 White Blood Count 8.0 CUMM 4.8-10.8 Red Cell Count 5.17 CUMM 4.6-6.2 Hemoglobin 17.1 g/dL 14.0-18.0 Hematocrit 49 % 42-52 Mean Corpuscular Volume 95 um3 High 80-94 Mean Corpuscular Hemoglob 33 pg High 27-31 Mean Corpuscular HGB Cone 35 g/dL 32-36 Redcell Distribution WDTH 14 % 10.5-15 Platelet Count 249 CUMM 150-450 Mean Platelet Volume 8.5 um3 7.4-10.4 Polysegmented Neutrophil 62 % 38-83 Band Neutrophil 2 % 0-8 Lymphocyte 28 % 25-47 Monocyte 6 % 0-13 Eosinophil 2 % 0-6 Absolute Neutrophil Count 5.1 RBC Morphology NORMAL Lipid Profile (Trig/Chol/HDL) 09/09/2008 Triglyceride 74 mg/dL 40-200 Cholesterol 156 mg/dL Less Than 200 59 High Density Lipoprotein 37 mg/dL Low 40-60 60 Cholesterol/HDL Ratio 4.22 AVERAGE 1-4.97 Low Density Lipoprotein 104 mg/dL High Less Than 100 61 CBC With Electronic Diff 09/09/2008 White Blood Count 6.9 CUMM 4.8-10.8 Red Cell Count 4.78 CUMM 4.6-6.2 Hemoglobin 15.0 g/dL 14.0-18.0 Hematocrit 43 % 42-52 Mean Corpuscular Volume 91 um3 80-94 Mean Corpuscular Hemoglob 31 pg 27-31 Mean Corpuscular HGB Cone 35 g/dL 32-36 Redcell Distribution WDTH 14 % 10.5-15 Platelet Count 288 CUMM 150-450 Mean Platelet Volume 7.7 um3 7.4-10.4 Gran % 50.7 % 38-83 Lymph % 35.7 % 20-45 Mononuclear % 9.9 % High 1-9 Eosinophil % 3.2 % 0-6 Basophil % 0.5 % 0-2 Abs Lymphs 2.5 1.0-4.8 Abs Mononuclear 0.7 0-0.8 Absolute Neutrophil Count 3.5 1.5-7.7 Abs Eosinophils 0.2 0-0.6 Abs Basophils 0 0-0.2 Comp Metabolic Panel 09/09/2008 Sodium 137 mmol/L 135-145 Potassium 4.7 mmol/L 3.5-5.0 Chloride 106 mmol/L 101-111 Co2 (Carbon Dioxide) 28.0 mmol/L 22-32 Anion Gap 3.0 mmol/L 2-11 62 Glucose 123 mg/dL High 70-100 63 BUN 14 mg/dL 6-24 Creatinine 0.90 mg/dL 0.50-1.40 One Over Creatinine 1.10 BUN/Creatinine Ratio 15.6 8-20 Calcium 9.1 mg/dL 8.1-9.9 64 Total Protein 6.4 GM/DL 6.2-8.1 Albumin 3.6 GM/DL 3.6-5.4 Globulin 2.8 GM/DL 2-4 Albumin/Globulin Ratio 1.3 1-3 Bilirubin Total 0.5 mg/dL 0.4-1.5 Alkaline Phosphatase 77 U/L 39-117 Alt (SGPT) 23 U/L 17-63 Ast (Sgot) 22 U/L 12-42 Laboratory test finding 09/09/2008 Hemoglobin A1c 7.5 % High <6.0 65 Urine DIP 06/12/2008 Leukocytes NEG Neg Urine Nitrites NEG Neg Urine pH 5 5-6 Total Protein, Urine NEG Neg Urine Glucose 500 High Norm Urine Ketones NEG Neg Urobilinogen NORM Norm Urine Bilirubin NEG Neg Urine Blood NEG Neg Specific [place] N/A Low 1.01-1.02 CBC With Electronic Diff Stat 05/29/2008 White Blood Count 8.8 CUMM 4.8- 10.8 Red Cell Count 5.34 CUMM 4.6-6.2 Hemoglobin 16.7 g/dL 14.0-18.0 Hematocrit 47 % 42-52 Mean Corpuscular Volume 89 um3 80-94 Mean Corpuscular Hemoglob 31 pg 27-31 Mean Corpuscular [facility] 35 g/dL 32-36 Redcell Distribution WDTH 13 % 10.5-15 Platelet Count 276 CUMM 150-450 Mean Platelet Volume 8.2 um3 7.4-10.4 Gran % 64.1 % 38-83 Lymph % 25.1 % 20-45 Mononuclear % 8.0 % 1-9 Eosinophil % 2.0 % 0-6 Basophil % 0.8 % 0-2 Abs Lymphs 2.2 1.0-4.8 Abs Mononuclear 0.7 0-0.8 Absolute Neutrophil Count 5.7 1.5-7.7 Abs Eosinophils 0.2 0-0.6 Abs Basophils 0.1 0-0.2 CMP Stat 05/29/2008 Sodium 131 mmol/L Low 135-145 Potassium 3.7 mmol/L 3.5-5.0 Chloride 102 mmol/L 101-111 Co2 (Carbon Dioxide) 23.0 mmol/L 22-32 Anion Gap 6.0 mmol/L 2-11 66 Glucose 355 mg/dL High 70-105 BUN 15 mg/dL 6-24 Creatinine 0.9 mg/dL 0.5-1.4 One Over Creatinine 1.11 BUN/Creatinine Ratio 16.7 8-20 Calcium 8.7 mg/dL 8.1-9.9 67 Total Protein 6.4 GM/DL 6.2-8.1 Albumin 3.5 GM/DL Low 3.6-5.4 Globulin 2.9 GM/DL 2-4 Albumin/Globulin Ratio 1.2 1-3 Bilirubin Total 0.4 mg/dL 0.4-1.5 Alkaline Phosphatase 98 U/L 39-117 Alt (SGPT) 41 U/L 17-63 Ast (Sgot) 51 U/L High 12-42 Laboratory test finding 05/29/2008 Troponin-I (TnI) 1.80 NG/ML High 0- 0.06 68 Comp Metabolic Panel 12/24/2007 One Over Creatinine 1.11 Anion Gap 6.0 mmol/L 2-11 69 Albumin/Globulin Ratio 1.5 1-3 Albumin 3.7 GM/DL 3.6-5.4 Alkaline Phosphatase 87 U/L 39-117 Alt (SGPT) 20 U/L 17-63 Ast (Sgot) 18 U/L 12-42 BUN 14 mg/dL 6-24 Calcium 9.7 mg/dL 8.7-10.2 Chloride 104 mmol/L 101-111 Co2 (Carbon Dioxide) 27.0 mmol/L 22-32 Globulin 2.4 GM/DL 2-4 Glucose 161 mg/dL High 70-105 Potassium 4.6 mmol/L 3.5-5.0 Sodium 137 mmol/L 135-145 Bilirubin Total 0.5 mg/dL 0.4-1.5 Total Protein 6.1 GM/DL Low 6.2-8.1 BUN/Creatinine Ratio 15.6 8-20 Creatinine 0.9 mg/dL 0.5-1.4 Laboratory test finding 12/24/2007 Hemoglobin A1c 7.9 % High <6.0 70 Microalbumin Random 12/24/2007 Jerry Alb/Creatinine 6.1 UG/MG Less Than 30 71 Urine Ratio Urine Creatinine 97.8 mg/dL Microalbumin (MG/L) 6.0 mg/L Lipid Profile 12/24/2007 Cholesterol/HDL Ratio 4.47 AVERAGE 1-4.97 (Trig/Chol/HDL) Cholesterol 161 mg/dL Less Than 200 72 Triglyceride 120 mg/dL 40-200 High Density Lipoprotein 36 mg/dL Low 40-60 73 Low Density Lipoprotein 101 mg/dL High Less Than 100 74 Comp Metabolic Panel 10/10/2007 One Over Creatinine 0.90 Anion Gap 6.0 mmol/L 2-11 75 Albumin/Globulin Ratio 1.3 1-3 Albumin 3.7 GM/DL 3.6-5.4 Alkaline Phosphatase 79 U/L 39-117 Alt (SGPT) 19 U/L 17-63 Ast (Sgot) 17 U/L 12-42 BUN 19 mg/dL 6-24 Calcium 9.0 mg/dL 8.7-10.2 Chloride 102 mmol/L 101-111 Co2 (Carbon Dioxide) 26.0 mmol/L 22-32 Globulin 2.8 GM/DL 2-4 Glucose 202 mg/dL High 70-105 Potassium 4.2 mmol/L 3.5-5.0 Sodium 134 mmol/L Low 135-145 Bilirubin Total 0.5 mg/dL 0.4-1.5 Total Protein 6.5 GM/DL 6.2-8.1 BUN/Creatinine Ratio 17.3 8-20 Creatinine 1.1 mg/dL 0.5-1.4 Lipid Profile 10/10/2007 Cholesterol/HDL Ratio 5.13 AVERAGE High 1-4.97 (Trig/Chol/HDL) Cholesterol 205 mg/dL High Less Than 200 76 Triglyceride 242 mg/dL High 40-200 High Density Lipoprotein 40 mg/dL 40-60 Low Density Lipoprotein 117 mg/dL High Less Than 100 77 Laboratory test finding 10/10/2007 Hemoglobin A1c 8.2 % High <6.0 78 Lipid Profile 07/12/2007 Cholesterol/HDL Ratio 5.60 AVERAGE High 1-4.97 (Trig/Chol/HDL) Cholesterol 196 mg/dL Less Than 200 79 Triglyceride 235 mg/dL High 40-200 High Density Lipoprotein 35 mg/dL Low 40-60 80 Low Density Lipoprotein 114 mg/dL High Less Than 100 81 Comp Metabolic Panel 07/12/2007 One Over Creatinine 0.90 Anion Gap 6.0 mmol/L 2-11 82 Albumin/Globulin Ratio 1.4 1-3 Albumin 3.6 GM/DL 3.6-5.4 Alkaline Phosphatase 92 U/L 39-117 Alt (SGPT) 20 U/L 17-63 Ast (Sgot) 20 U/L 12-42 BUN 15 mg/dL 6-24 Calcium 9.1 mg/dL 8.7-10.2 Chloride 105 mmol/L 101-111 Co2 (Carbon Dioxide) 25.0 mmol/L 22-32 Globulin 2.5 GM/DL 2-4 Glucose 181 mg/dL High 70-105 Potassium 4.7 mmol/L 3.5-5.0 Sodium 136 mmol/L 135-145 Bilirubin Total 0.2 mg/dL Low 0.4-1.5 Total Protein 6.1 GM/DL Low 6.2-8.1 BUN/Creatinine Ratio 13.6 8-20 Creatinine 1.1 mg/dL 0.5-1.4 Laboratory test finding 07/12/2007 Hemoglobin A1c 8.8 % High <6.0 83 Laboratory test finding 10/18/2006 Hemoglobin A1c 9.6 % High <6.0 84 Lipid Profile 10/18/2006 Cholesterol/HDL Ratio 5.17 AVERAGE High 1-4.97 (Trig/Chol/HDL) Cholesterol 248 mg/dL High Less Than 200 85 Triglyceride 88 mg/dL 40-200 High Density Lipoprotein 48 mg/dL 40-60 Low Density Lipoprotein 182 mg/dL High Less Than 100 86 Comp Metabolic Panel 10/18/2006 One Over Creatinine 1.00 Anion Gap 11.0 mmol/L 2-11 87 Albumin/Globulin Ratio 1.5 1-3 Albumin 4.2 GM/DL 3.6-5.4 Alkaline Phosphatase 98 U/L 39-117 Alt (SGPT) 29 U/L 17-63 Ast (Sgot) 23 U/L 12-42 BUN 14 mg/dL 6-24 Calcium 9.9 mg/dL 8.7-10.2 Chloride 103 mmol/L 101-111 Co2 (Carbon Dioxide) 27.0 mmol/L 22-32 Globulin 2.8 GM/DL 2-4 Glucose 103 mg/dL 70-105 Potassium 5.0 mmol/L 3.5-5.0 Sodium 141 mmol/L 135-145 Bilirubin Total 0.5 mg/dL 0.4-1.5 Total Protein 7.0 GM/DL 6.2-8.1 BUN/Creatinine Ratio 14.0 8-20 Creatinine 1.0 mg/dL 0.5-1.4 Laboratory test finding 10/01/2006 Glucose By Moniter 399 High 78-110 Laboratory test finding 08/29/2006 Glucose 267 Xray 04/30/2006 Upper GI Series SEE TRIAGE Comp Metabolic Panel 01/15/2006 One Over Creatinine 0.90 Anion Gap 7.0 mmol/L 2-11 88 Albumin/Globulin Ratio 1.4 1-3 Albumin 3.9 GM/DL 3.6-5.4 Alkaline Phosphatase 94 U/L 39-117 Alt (SGPT) 21 U/L 17-63 Ast (Sgot) 16 U/L 12-42 BUN 20 mg/dL 6-24 Calcium 9.9 mg/dL 8.7-10.2 Chloride 102 mmol/L 101-111 Co2 (Carbon Dioxide) 29.0 mmol/L 22-32 Globulin 2.7 GM/DL 2-4 Glucose 272 mg/dL High 70-105 Potassium 4.8 mmol/L 3.5-5.0 Sodium 138 mmol/L 135-145 Bilirubin Total 0.4 mg/dL 0.4-1.5 Total Protein 6.6 GM/DL 6.2-8.1 BUN/Creatinine Ratio 18.2 8-20 Creatinine 1.1 mg/dL 0.5-1.4 Laboratory test finding 01/15/2006 Hemoglobin A1c 9.0 % High <6.0 89 Lipid Profile 01/15/2006 Cholesterol 214 mg/dL High Less Than 200 90 (Trig/Chol/HDL) Triglyceride 142 mg/dL 40-200 High Density Lipoprotein 39 mg/dL Low 40-60 91 Low Density Lipoprotein 147 mg/dL High Less Than 100 92 Cholesterol/HDL Ratio 5.49 AVERAGE High 1-4.97 Microalbumin Random 01/15/2006 Jerry Alb/Creatinine 14.4 UG/MG Less Than 30 93 Urine Ratio Urine Creatinine 90.5 mg/dL Microalbumin (MG/L) 13.0 mg/L Laboratory test finding 01/31/2005 Hemoglobin A1c 9.1 % High <6.0 94 Laboratory test finding 12/19/2004 Glucose By Moniter 276 High 78-110 Laboratory test finding 08/08/2004 Glucose By Moniter 197 High 78-110 Laboratory test finding 06/20/2004 Glucose-Fingerstick 192 Laboratory test finding 05/04/2004 Glucose By Moniter 129 High 78-110 Laboratory test finding 04/05/2004 Hemoglobin A1c 11.3 % High <6.0 95 CBC With Electronic Diff 04/05/2004 Platelet Count 258 CUMM 150-450 White Blood Count 7.5 CUMM 4.8-10.8 Abs Basophils 0.1 0-0.2 Abs Eosinophils 0.3 0-0.6 Abs Grans 4.3 1.5-7.7 Abs Lymphs 2.2 1.0-4.8 Abs Mononuclear 0.6 0-0.8 Basophil % 0.7 % 0-2 Hematocrit 46 % 42-52 Hemoglobin 16.3 g/dL 14.0-18.0 Eosinophil % 3.8 % 0-6 Gran % 57.6 % 38-83 Lymph % 29.8 % 20-45 Mean Corpuscular HGB [facility] 36 g/dL 32-36 Mean Corpuscular Hemoglob 32 pg High 27-31 Mean Corpuscular Volume 91 um3 80-94 Mean Platelet Volume 9.0 um3 7.4-10.4 Mononuclear % 8.1 % 1-9 Red Cell Count 5.08 CUMM 4.6-6.2 Redcell Distribution WDTH 13 % 10.5-15 Lipid Profile (Trig/Chol/HDL) 04/05/2004 Cholesterol 236 mg/dL High Less Than 200 96 Triglyceride 178 mg/dL 40-200 High Density Lipoprotein 39 mg/dL Low 40-60 97 Low Density Lipoprotein 161 mg/dL High Less Than 100 98 Cholesterol/HDL Ratio 6.05 AVERAGE High 1-4.97 Comp Metabolic Panel 04/05/2004 Anion Gap 7.0 mmol/L 2-11 99 Albumin/Globulin Ratio 1.5 1-3 Albumin 3.9 GM/DL 3.6-5.4 Alkaline Phosphatase 104 U/L 39-117 Alt (SGPT) 43 U/L 17-63 Ast (Sgot) 24 U/L 12-42 BUN 9 mg/dL 6-24 Calcium 9.5 mg/dL 8.7-10.2 Chloride 105 mmol/L 101-111 Co2 (Carbon Dioxide) 27.0 mmol/L 22-32 Creatinine 1.0 mg/dL 0.5-1.4 Globulin 2.6 GM/DL 2-4 Glucose 196 mg/dL High 70-105 Potassium 4.6 mmol/L 3.5-5.0 Sodium 139 mmol/L 135-145 Bilirubin Total 0.6 mg/dL 0.4-1.5 Total Protein 6.5 GM/DL 6.2-8.1 BUN/Creatinine Ratio 9.0 8-20 Laboratory test finding 03/18/2004 Glucose By Moniter 333 High 78-110 Laboratory test finding 06/18/2003 Glucose By Moniter 220 High 78-110 Laboratory test finding 02/20/2003 Glucose By Moniter 123 High 78-110 Urine DIP 02/20/2003 Leukocytes NEG Neg Urine Nitrites NEG Neg Urine pH 6 5-6 Total Protein, Urine NEG Neg Urine Glucose 100 High Norm Urine Ketones NEG Neg Urobolinogen NORM Norm Urine Bilirubin NEG Neg Urine Blood NEG Neg Laboratory test finding 01/05/2003 Glucose By Moniter 304 High 78-110 Laboratory test finding 12/03/2002 Glucose By Moniter 286 High 78-110 1 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 Re04/27/17 SEX: M Status: REG REF SPEC: [id number] ROEL: 04/27/17-[address] [facility] [address]: Haylie Pritchard MD REQ: [id number] RECD: 04/27/17 STATUS: COMP _ SOURCE: URINE SPDESC: ORDERED: Urine Culture COMMENTS: [id number] Urine Source: Random Procedure Result Reported Site Urine Culture Final 04/29/17- 0805 ML No Growth (<1,000 CFU/mL) * ML - MAIN LAB (PSC1) . END OF REPORT * ML=Testing performed at Main Lab DEPARTMENT OF PATHOLOGY, [address] [place] [address] Esa Daniel M.D. Director [facility] # [id number] 4 [id number] Serum levels of PSA measured using the [employer] [place] DXI Hybritech immunoassay should not be interpreted as absolute evidence of the presence or absence of disease. The PSA value should be used in conjunction with other pertinent clinical diagnostic procedures. The values obtained with different assay methods or kits cannot be used interchangeably. 6 Therapeutic target for the treatment of diabetes Mellitus patients is <7% HBA1C, and in selective patients <6.0%.Please refer to [place] [employer] Diabetic care guidelines for further information. 7 Because ethnic data is not always readily available, this report includes an eGFR for both -Americans and non- Americans. The National Kidney Disease Education Program (NKDEP) does not endorse the use of the MDRD equation for patients that are not between the ages of 18 and 70, are , have extremes of body size, muscle mass, or nutritional status, or are non- or non-. According to the National Kidney Foundation, irrespective of diagnosis, the stage of the disease is based on the level of kidney function: Stage Description GFR(mL/min/1.73 m(2)) 1 Kidney damage with normal or decreased GFR 90 2 Kidney damage with mild decrease in GFR 60-89 3 Moderate decrease in GFR 30-59 4 Severe decrease in GFR 15-29 5 Kidney failure <15 (or dialysis) 8 Because ethnic data is not always readily available, this report includes an eGFR for both -Americans and non- Americans. The National Kidney Disease Education Program (NKDEP) does not endorse the use of the MDRD equation for patients that are not between the ages of 18 and 70, are , have extremes of body size, muscle mass, or nutritional status, or are non- or non-. According to the National Kidney Foundation, irrespective of diagnosis, the stage of the disease is based on the level of kidney function: Stage Description GFR(mL/min/1.73 m(2)) 1 Kidney damage with normal or decreased GFR 90 2 Kidney damage with mild decrease in GFR 60-89 3 Moderate decrease in GFR 30-59 4 Severe decrease in GFR 15-29 5 Kidney failure <15 (or dialysis) 9 Therapeutic target for the treatment of diabetes Mellitus patients is <7% HBA1C, and in selective patients <6.0%.Please refer to [place] [employer] Diabetic care guidelines for further information. 10 Therapeutic target for the treatment of diabetes Mellitus patients is <7% HBA1C, and in selective patients <6.0%.Please refer to [place] [employer] Diabetic care guidelines for further information. 11 Desirable <150 Borderline high 150-199 High 200-499 Very High >500 12 Desirable <200 Borderline high 200-239 High >239 13 Low <40 Desirable: 40-60 High: >60 14 Desirable <100 Near Optimal 100-129 Borderline high 130-159 High 160-189 Very High >189 15 Because ethnic data is not always readily available, this report includes an eGFR for both -Americans and non- Americans. The National Kidney Disease Education Program (NKDEP) does not endorse the use of the MDRD equation for patients that are not between the ages of 18 and 70, are , have extremes of body size, muscle mass, or nutritional status, or are non- or non-. According to the National Kidney Foundation, irrespective of diagnosis, the stage of the disease is based on the level of kidney function: Stage Description GFR(mL/min/1.73 m(2)) 1 Kidney damage with normal or decreased GFR 90 2 Kidney damage with mild decrease in GFR 60-89 3 Moderate decrease in GFR 30-59 4 Severe decrease in GFR 15-29 5 Kidney failure <15 (or dialysis) 16 Verbal to DANIELLE MORSE by GRICEL at 2055 on 04/14/13. Results read back accurately. Verbal to answering service at 2052 on 04/14/13 by GRICEL. Doctor to return call. 17 Because ethnic data is not always readily available, this report includes an eGFR for both -Americans and non- Americans. The National Kidney Disease Education Program (NKDEP) does not endorse the use of the MDRD equation for patients that are not between the ages of 18 and 70, are , have extremes of body size, muscle mass, or nutritional status, or are non- or non-. According to the National Kidney Foundation, irrespective of diagnosis, the stage of the disease is based on the level of kidney function: Stage Description GFR(mL/min/1.73 m(2)) 1 Kidney damage with normal or decreased GFR 90 2 Kidney damage with mild decrease in GFR 60-89 3 Moderate decrease in GFR 30-59 4 Severe decrease in GFR 15-29 5 Kidney failure <15 (or dialysis) 18 Therapeutic target for the treatment of diabetes Mellitus patients is <7% HBA1C, and in selective patients <6.0%.Please refer to [place] [employer] Diabetic care guidelines for further information. 19 HDL Interpretation: Undesirable: High Risk: Less than 40 mg/dL Desirable: Low Risk: Greater than 60 mg/dL 20 LDL Interpretation: Low Risk Optimal Level: LDL Less than 100 mg/dL Near or Above Optimal: LDL 100-129 mg/dL Borderline High Risk: LDL 130-159 mg/dL High Risk: LDL 160-189 mg/dL Very High Risk: LDL Greater than 189 mg/dL 21 Verbal to DANIELLE MORSE by GRICEL at 2055 on 04/14/13. Results read back accurately. Verbal to answering service at 2052 on 04/14/13 by GRICEL. Doctor to return call. 22 Serum levels of PSA measured using the [employer] [place] DXI Hybritech immunoassay should not be interpreted as absolute evidence of the presence or absence of disease. The PSA value should be used in conjunction with other pertinent clinical diagnostic procedures. The values obtained with different assay methods or kits cannot be used interchangeably. 23 Please note the change in INR reference range effective 12. The INR(International Normalized Ratio) was adopted by the World Health Organization (WHO) in 1982 as a standardized system of reporting PT (Prothrombin Time). The Centers for Disease Control (CDC) states that reporting of PT results in INR only is the preferred method. Recommended INR for Patients on Oral Anticoagulants Prophylaxis 2.0 - 3.0 Treatment of thrombosis 2.0 - 3.0 Prevention of embolism 2.0 - 3.0 Prevention of embolism from prosthetic heart valves 2.5 - 3.5 24 Because ethnic data is not always readily available, this report includes an eGFR for both -Americans and non- Americans. The National Kidney Disease Education Program (NKDEP) does not endorse the use of the MDRD equation for patients that are not between the ages of 18 and 70, are , have extremes of body size, muscle mass, or nutritional status, or are non- or non-. According to the National Kidney Foundation, irrespective of diagnosis, the stage of the disease is based on the level of kidney function: Stage Description GFR(mL/min/1.73 m(2)) 1 Kidney damage with normal or decreased GFR 90 2 Kidney damage with mild decrease in GFR 60-89 3 Moderate decrease in GFR 30-59 4 Severe decrease in GFR 15-29 5 Kidney failure <15 (or dialysis) 25 CHOLESTEROL INTERPRETATION: Desirable: Less than 200 MG/DL Borderline-High Risk: 200-239 MG/DL High-Risk: 240 MG/DL and over 26 HDL INTERPRETATION: Undesirable: High Risk: Less than 40 MG/DL Desirable: Low Risk: Greater than 60 MG/DL 27 LDL INTERPRETATION: Low Risk Optimal Level: LDL Less than 100 MG/DL Near or Above Optimal: LDL 100-129 MG/DL Borderline High Risk: LDL 130-159 MG/DL High Risk: LDL 160-189 MG/DL Very High Risk: LDL Greater than 189 MG/DL 28 THERAPEUTIC TARGET FOR THE TREATMENT OF DIABETES MELLITUS PATIENTS IS <7% HBA1C, AND IN SELECTIVE PATIENTS <6.0%. PLEASE REFER TO [place] [employer] DIABETIC CARE GUIDELINES FOR FURTHER INFORMATION. 29 Anion gap measurement may be of limited value in the presence of any alkalosis, especially in a combined acid base disorder. . 30 A metabolite of Naproxen, O-desmethylnaproxen, has been shown to interfere with the [place] method for measuring total bilirubin. Samples from patients who have taken Naproxen have shown spurious elevation in total bilirubin levels. 31 Because ethnic data is not always readily available, this report includes an eGFR for both -Americans and non- Americans. The National Kidney Disease Education Program (NKDEP) does not endorse the use of the MDRD equation for patients that are not between the ages of 18 and 70, are , have extremes of body size, muscle mass, or nutritional status, or are non- or non-. According to the National Kidney Foundation, irrespective of diagnosis, the stage of the disease is based on the level of kidney function: Stage Description GFR(mL/min/1.73 m(2)) 1 Kidney damage with normal or decreased GFR 90 2 Kidney damage with mild decrease in GFR 60-89 3 Moderate decrease in GFR 30-59 4 Severe decrease in GFR 15-29 5 Kidney failure <15 (or dialysis) 32 Imm. NE 1 33 Anion gap measurement may be of limited value in the presence of any alkalosis, especially in a combined acid base disorder. . 34 Note change in reference range as of 07/02/08. The change was based on recommendations from the [place] [employer]. 35 A metabolite of Naproxen, O-desmethylnaproxen, has been shown to interfere with the J[place]rassik-Tita method for measuring total bilirubin. Samples from patients who have taken Naproxen have shown spurious elevation in total bilirubin levels. 36 Because ethnic data is not always readily available, this report includes an eGFR for both -Americans and non- Americans. The National Kidney Disease Education Program (NKDEP) does not endorse the use of the MDRD equation for patients that are not between the ages of 18 and 70, are , have extremes of body size, muscle mass, or nutritional status, or are non- or non-. According to the National Kidney Foundation, irrespective of diagnosis, the stage of the disease is based on the level of kidney function: Stage Description GFR(mL/min/1.73 m(2)) 1 Kidney damage with normal or decreased GFR 90 2 Kidney damage with mild decrease in GFR 60-89 3 Moderate decrease in GFR 30-59 4 Severe decrease in GFR 15-29 5 Kidney failure <15 (or dialysis) 37 CHOLESTEROL INTERPRETATION: Desirable: Less than 200 MG/DL Borderline-High Risk: 200-239 MG/DL High-Risk: 240 MG/DL and over 38 HDL INTERPRETATION: Undesirable: High Risk: Less than 40 MG/DL Desirable: Low Risk: Greater than 60 MG/DL 39 LDL INTERPRETATION: Low Risk Optimal Level: LDL Less than 100 MG/DL Near or Above Optimal: LDL 100-129 MG/DL Borderline High Risk: LDL 130-159 MG/DL High Risk: LDL 160-189 MG/DL Very High Risk: LDL Greater than 189 MG/DL 40 THERAPEUTIC TARGET FOR THE TREATMENT OF DIABETES MELLITUS PATIENTS IS <7% HBA1C, AND IN SELECTIVE PATIENTS <6.0%. PLEASE REFER TO [place] [employer] DIABETIC CARE GUIDELINES FOR FURTHER INFORMATION. 41 Anion gap measurement may be of limited value in the presence of any alkalosis, especially in a combined acid base disorder. . 42 Note change in reference range as of 07/02/08. The change was based on recommendations from the [place] [employer]. 43 Please note change in reference range effective 08 . 44 A metabolite of Naproxen, O-desmethylnaproxen, has been shown to interfere with the [place] method for measuring total bilirubin. Samples from patients who have taken Naproxen have shown spurious elevation in total bilirubin levels. 45 Because ethnic data is not always readily available, this report includes an eGFR for both -Americans and non- Americans. The National Kidney Disease Education Program (NKDEP) does not endorse the use of the MDRD equation for patients that are not between the ages of 18 and 70, are , have extremes of body size, muscle mass, or nutritional status, or are non- or non-. According to the National Kidney Foundation, irrespective of diagnosis, the stage of the disease is based on the level of kidney function: Stage Description GFR(mL/min/1.73 m(2)) 1 Kidney damage with normal or decreased GFR 90 2 Kidney damage with mild decrease in GFR 60-89 3 Moderate decrease in GFR 30-59 4 Severe decrease in GFR 15-29 5 Kidney failure <15 (or dialysis) 46 VERBAL TO DUY SILVER at 0826 on 05/13/10. Results read back accurately. New Reference Range and Interpretation effective 08/15/2002 TnI (ng/ml) INTERPRETATION Less Than 0.06 ng/mL NOT SUPPORTIVE OF DIAGNOSIS OF CO 0.06 - 0.50 ng/ml INDETERMINATE: SUGGEST SERIAL STUDIES IF CLINICALLY INDICATED. Greater than 0.5 ng/mL CONSISTENT WITH DIAGNOSIS OF CO . 47 Recommended INR for Patients on Oral Anticoagulants Prophylaxis 2.0 - 3.0 Treatment of thrombosis 2.0 - 3.0 Prevention of embolism 2.0 - 3.0 Prevention of embolism from prosthetic heart valves 2.5 - 3.5 48 DIAGNOSIS,TREATMENT,AND THERAPY MUST BE BASED ON THE INR VALUE ALONE. 49 PLEASE NOTE NEW REFERENCE RANGE EFFECTIVE 09. 50 Anion gap measurement may be of limited value in the presence of any alkalosis, especially in a combined acid base disorder. . 51 Note change in reference range as of 07/02/08. The change was based on recommendations from the [place] [employer]. 52 Please note change in reference range effective 08 . 53 A metabolite of Naproxen, O-desmethylnaproxen, has been shown to interfere with the [place]rass[place] method for measuring total bilirubin. Samples from patients who have taken Naproxen have shown spurious elevation in total bilirubin levels. 54 Because ethnic data is not always readily available, this report includes an eGFR for both -Americans and non- Americans. The National Kidney Disease Education Program (NKDEP) does not endorse the use of the MDRD equation for patients that are not between the ages of 18 and 70, are , have extremes of body size, muscle mass, or nutritional status, or are non- or non-. According to the National Kidney Foundation, irrespective of diagnosis, the stage of the disease is based on the level of kidney function: Stage Description GFR(mL/min/1.73 m(2)) 1 Kidney damage with normal or decreased GFR 90 2 Kidney damage with mild decrease in GFR 60-89 3 Moderate decrease in GFR 30-59 4 Severe decrease in GFR 15-29 5 Kidney failure <15 (or dialysis) 55 CHOLESTEROL INTERPRETATION: Desirable: Less than 200 MG/DL Borderline-High Risk: 200-239 MG/DL High-Risk: 240 MG/DL and over 56 HDL INTERPRETATION: Undesirable: High Risk: Less than 40 MG/DL Desirable: Low Risk: Greater than 60 MG/DL 57 LDL INTERPRETATION: Low Risk Optimal Level: LDL Less than 100 MG/DL Near or Above Optimal: LDL 100-129 MG/DL Borderline High Risk: LDL 130-159 MG/DL High Risk: LDL 160-189 MG/DL Very High Risk: LDL Greater than 189 MG/DL 58 THERAPEUTIC TARGET FOR THE TREATMENT OF DIABETES MELLITUS PATIENTS IS <7% HBA1C, AND IN SELECTIVE PATIENTS <6.0%. PLEASE REFER TO [place] [employer] DIABETIC CARE GUIDELINES FOR FURTHER INFORMATION. 59 CHOLESTEROL INTERPRETATION: Desirable: Less than 200 MG/DL Borderline-High Risk: 200-239 MG/DL High-Risk: 240 MG/DL and over 60 HDL INTERPRETATION: Undesirable: High Risk: Less than 40 MG/DL Desirable: Low Risk: Greater than 60 MG/DL 61 LDL INTERPRETATION: Low Risk Optimal Level: LDL Less than 100 MG/DL Near or Above Optimal: LDL 100-129 MG/DL Borderline High Risk: LDL 130-159 MG/DL High Risk: LDL 160-189 MG/DL Very High Risk: LDL Greater than 189 MG/DL 62 Anion gap measurement may be of limited value in the presence of any alkalosis, especially in a combined acid base disorder. . 63 Note change in reference range as of 07/02/08. The change was based on recommendations from the [employer]. 64 Please note change in reference range effective 08 . 65 THERAPEUTIC TARGET FOR THE TREATMENT OF DIABETES MELLITUS PATIENTS IS <7% HBA1C, AND IN SELECTIVE PATIENTS <6.0%. PLEASE REFER TO [employer] DIABETIC CARE GUIDELINES FOR FURTHER INFORMATION. 66 Anion gap measurement may be of limited value in the presence of any alkalosis, especially in a combined acid base disorder. . 67 Please note change in reference range effective 08 . 68 VERBAL TO DENISSE BY AK at 1010 on 05/29/08. Results read back accurately. RESULTS VERIFIED BY REPEAT ANALYSIS ON THE SAME SAMPLE. REPEATED RESULT IS:1.65 New Reference Range and Interpretation effective 08/15/02 TnI (ng/ml) INTERPRETATION <0.06 ng/ml NOT SUPPORTIVE OF DIAGNOSIS OF CO 0.06 - 0.50 ng/ml INDETERMINATE: SUGGEST SERIAL STUDIES IF CLINICALLY INDICATED. > 0.5 ng/ml CONSISTENT WITH DIAGNOSIS OF CO . 69 Anion gap measurement may be of limited value in the presence of any alkalosis, especially in a combined acid base disorder. . 70 THERAPEUTIC TARGET FOR THE TREATMENT OF DIABETES MELLITUS PATIENTS IS <7% HBA1C, AND IN SELECTIVE PATIENTS <6.0%. PLEASE REFER TO [employer] DIABETIC CARE GUIDELINES FOR FURTHER INFORMATION. 71 MICROALBUMINURIA IN A RANDOM SAMPLE IS DEFINED : MICROALBUMIN/CREATININE RATIO OF 30-299 ug/mg. . 72 Classification: Desirable . 73 Classification: Low . 74 CALCULATED LDL APPROXIMATES THE VALUE OF A DIRECT LDL MEASUREMENT. Classification: Near or above optimal . 75 Anion gap measurement may be of limited value in the presence of any alkalosis, especially in a combined acid base disorder. . 76 Classification: Borderline High . 77 CALCULATED LDL APPROXIMATES THE VALUE OF A DIRECT LDL MEASUREMENT. Classification: Near or above optimal . 78 THERAPEUTIC TARGET FOR THE TREATMENT OF DIABETES MELLITUS PATIENTS IS <7% HBA1C, AND IN SELECTIVE PATIENTS <6.0%. PLEASE REFER TO [employer] DIABETIC CARE GUIDELINES FOR FURTHER INFORMATION. 79 Classification: Desirable . 80 Classification: Low . 81 CALCULATED LDL APPROXIMATES THE VALUE OF A DIRECT LDL MEASUREMENT. Classification: Near or above optimal . 82 Anion gap measurement may be of limited value in the presence of any alkalosis, especially in a combined acid base disorder. . 83 THERAPEUTIC TARGET FOR THE TREATMENT OF DIABETES MELLITUS PATIENTS IS <7% HBA1C, AND IN SELECTIVE PATIENTS <6.0%. PLEASE REFER TO [employer] DIABETIC CARE GUIDELINES FOR FURTHER INFORMATION. 84 THERAPEUTIC TARGET FOR THE TREATMENT OF DIABETES MELLITUS PATIENTS IS <7% HBA1C, AND IN SELECTIVE PATIENTS <6.0%. PLEASE REFER TO [employer] DIABETIC CARE GUIDELINES FOR FURTHER INFORMATION. 85 Classification: High . 86 CALCULATED LDL APPROXIMATES THE VALUE OF A DIRECT LDL MEASUREMENT. Classification: High . 87 Anion gap measurement may be of limited value in the presence of any alkalosis, especially in a combined acid base disorder. . 88 Anion gap measurement may be of limited value in the presence of any alkalosis, especially in a combined acid base disorder. . 89 THERAPEUTIC TARGET FOR THE TREATMENT OF DIABETES MELLITUS PATIENTS IS <7% HBA1C, AND IN SELECTIVE PATIENTS <6.0%. PLEASE REFER TO [employer] DIABETIC CARE GUIDELINES FOR FURTHER INFORMATION. 90 Classification: Borderline High . 91 Classification: Low . 92 CALCULATED LDL APPROXIMATES THE VALUE OF A DIRECT LDL MEASUREMENT. Classification: Borderline High . 93 MICROALBUMINURIA IN A RANDOM SAMPLE IS DEFINED : MICROALBUMIN/CREATININE RATIO OF 30-299 ug/mg. . 94 THERAPEUTIC TARGET FOR THE TREATMENT OF DIABETES MELLITUS PATIENTS IS <7% HBA1C, AND IN SELECTIVE PATIENTS <6.0%. PLEASE REFER TO [employer] DIABETIC CARE GUIDELINES FOR FURTHER INFORMATION. 95 THERAPEUTIC TARGET FOR THE TREATMENT OF DIABETES MELLITUS PATIENTS IS <7% HBA1C. [employer] DIABETES CARE 2002;25:S33-S49. . 96 Classification: Borderline High . 97 Classification: Low . 98 CALCULATED LDL APPROXIMATES THE VALUE OF A DIRECT LDL MEASUREMENT. Classification: High . 99 Anion gap measurement may be of limited value in the presence of any alkalosis, especially in a combined acid base disorder. . Procedures Date CPT Code Description Status 02/04/2015 04220 Removal Of Foreign Body, Foot, Subcutaneous Completed 09/23/2012 43727 Removal-Impacted Cerumen Completed 10/01/2006 25712 EKG, at Least 12 Leads w/Interpretation and Report Completed 08/29/2006 46697 Removal Of Foreign Body Completed 06/20/2004 79544 EKG, at Least 12 Leads w/Interpretation and Report Completed Encounters Type Date Location Provider CPT E/M Dx Office Visit 09/25/2017 10:00a Main Office Mynor Dale III [facility] 74397 M54.13 Office Visit 09/10/2017 10:30a Main Office Danielle Morse [employer] [employer] 16499 I25.84 M54.32 M54.2 M25.512 G56.32 E11.40 Office Visit 08/20/2017 3:00p Main Office [place]ón [place] [address] J44.9 I25.84 Z23 Office Visit 06/22/2017 3:00p Main Office Shawnti R. Brody, [employer] 41157 Z72.0 E11.65 Office Visit 04/27/2017 4:45p Main Office Haylie Pritchard M.D., R.D. 63422 N40.1 Office Visit 04/19/2017 3:45p Main Office Shawnti R. Storm, [employer] 86271 E11.65 S61.213A H61.23 Z12.5 Z23 Office Visit 03/19/2017 3:45p Main Office Shawnti R. Storm, [employer] [employer] 59087 M54.17 E11.65 Office Visit 02/23/2017 4:30p Main Office Shawnti R. Brody, [employer] 32795 E11.65 I25.10 M54.32 Office Visit 02/02/2017 3:00p Main Office Shawnti R. Storm, [employer] [employer] 54530 E11.65 M54.32 Office Visit 01/05/2017 4:15p Main Office Shawnti R. Storm, [employer] 56104 M54.32 E11.40 Office Visit 12/22/2016 3:15p Main Office Shawnti R. Brody, [employer] [employer] 23797 M54.32 M54.17 Office Visit 10/24/2016 3:15p Main Office Shawnti R. Storm, [employer] 92824 M54.32 M54.17 E11.40 F33.1 Office Visit 07/07/2016 4:00p Main Office Mynor Dale III, [employer] [employer] 17052 M54.32 Office Visit 03/07/2016 10:30a Main Office Mynor Dale III, [employer] 96299 R05 Office Visit 02/02/2016 10:45a Main Office Ramón [place] [address] J06.9 J20.9 E11.65 Office Visit 01/25/2016 1:30p Main Office Mynor Dale III, [employer] 02284 J06.9 H60.392 Office Visit 12/30/2015 9:00a Main Office Ramón [place] [address] B37.84 H60.392 Office Visit 10/28/2015 10:30a Main Office Danielle Morse, [employer] [employer] 23733 E11.65 F10.19 Office Visit 10/11/2015 11:30a Main Office Danielle Morse, [employer] [employer] 75458 E11.65 F17.218 F10.19 F33.1 Office Visit 10/04/2015 2:45p Main Office Ramón [place] [address] H61.22 Office Visit 07/29/2015 2:45p Main Office Danielle Morse, [employer] [employer] 96803 K21.0 M25.511 M25.512 S96.011A I80.00 F17.218 Office Visit 01/07/2015 3:15p Main Office Danielle Morse, [employer] 20890 486 Office Visit 12/07/2014 2:30p Main Office Danielle Morse, [employer] [employer] 46305 250.02 608.89 785.9 Office Visit 11/19/2014 2:30p Main Office Shawnti Sarkis Morse, [employer] 28255 250.02 608.89 785.9 Office Visit 10/15/2014 2:15p Main Office Danielle Morse, [employer] 70574 250.02 296.32 303.90 608.89 Office Visit 07/02/2014 10:15a Main Office Angelwvanessa Morse, [employer] [employer] 08043 726.19 303.90 Office Visit 09/25/2013 11:30a Main Office Angelwvanessa Morse, [employer] [employer] 78832 726.19 Office Visit 08/14/2013 4:30p Main Office Delmy Hester M.D. 26323 728.85 Office Visit 06/16/2013 3:15p Main Office Shawnti Sarkis Morse, [employer] [employer] 32761 296.32 250.02 303.90 305.1 Office Visit 05/08/2013 2:30p Main Office Danielle Morse, [employer] 19139 296.32 250.02 Office Visit 04/21/2013 2:45p Main Office Danielle Morse, [employer] 83409 250.00 411.89 303.90 Office Visit 04/14/2013 2:00p Main Office Danielle Morse, [employer] 82370 451.89 303.90 250.00 786.2 Office Visit 09/23/2012 10:45a Main Office Nevin Rios, [employer] [employer] 90468 465.9 380.4 Office Visit 09/09/2012 2:15p Main Office Danielle Morse, [employer] [employer] 81928 372.00 Office Visit 01/26/2012 4:45p Main Office Delmy Hester M.D. 80725 461.8 Office Visit 12/01/2010 9:30a Main Office Danielle Morse, [employer] 43554 303.90 305.1 Office Visit 11/15/2010 11:00a Main Office Danielle Morse, [employer] 00111 250.00 272.0 311 Office Visit 07/21/2010 9:15a Main Office Danielle Morse, [employer] [employer] 71320 250.00 303.90 Office Visit 06/20/2010 2:45p Main Office Danielle Morse, [employer] 98354 414.9 250.00 303.90 305.1 272.0 401.9 Office Visit 05/23/2010 2:30p Main Office Danielle Morse, [employer] 63933 250.00 414.9 Office Visit 05/02/2010 10:15a Main Office Danielle Morse, [employer] 38471 250.00 414.9 303.90 Office Visit 04/18/2010 10:45a Main Office Danielle Morse, [employer] 44285 414.9 250.00 305.1 272.0 401.9 535.00 303.90 Office Visit 11/30/2009 3:30p Main Office Tiffanie Edward 39209 466.0 250.00 414.9 Office Visit 05/13/2009 10:00a Main Office Danielle Morse [facility] 72094 522.5 Office Visit 03/15/2009 9:15a Main Office Mariajose Porter [facility] 80491 305.1 Office Visit 09/08/2008 10:00a Main Office Mariajose Porter F.N.P.C[facility] 10361 250.00 401.9 272.0 305.1 414.9 302.72 Office Visit 07/29/2008 2:00p Main Office Mariajose Porter F[facility] 23953 724.5 723.1 305.1 250.00 272.0 401.9 Office Visit 06/12/2008 1:30p Main Office Mariajose Porter F.N.P.C[facility] 48820 250.00 272.0 305.1 401.9 414.9 530.81 Office Visit 01/23/2008 3:00p Main Office Mariajose Porter [facility].N[facility] 21367 250.00 272.0 305.1 401.9 305.00 311 Office Visit 12/19/2007 3:30p Main Office Mariajose Porter F.N.P.C[facility] 80654 250.00 305.1 401.9 272.0 530.81 Office Visit 08/13/2007 1:00p Main Office Mariajose Porter F.N.P.C. 08766 786.2 305.1 272.0 250.00 Office Visit 07/11/2007 12:00p Main Office Mariajose Porter F.N.P.C. 07694 250.00 305.1 272.0 681.00 Office Visit 06/27/2007 11:00a Main Office Mariajose Porter F.N.P.C[facility] 05843 681.00 305.1 250.00 272.0 Office Visit 04/03/2007 11:15a Main Office Louie Walker M.D. 72760 379.91 Office Visit 03/08/2007 10:30a Main Office Mariajose Porter [facility].N[facility] 95318 466.0 305.1 Office Visit 01/03/2007 2:45p Main Office Mariajosebryan Porter F.N.P.C. 55912 311 305.1 Office Visit 12/13/2006 11:45a Main Office Mariajose Porter F.N.P.C. 28343 250.00 530.81 272.0 311 Office Visit 11/08/2006 10:00a Main Office Mariajosebryan Porter F.N.P.C. 91689 250.00 530.81 272.0 786.50 401.9 Office Visit 10/18/2006 9:30a Main Office Mariajose Porter F.N.P.C. 07466 250.00 530.81 311 272.0 Office Visit 10/08/2006 3:00p Main Office Mariajose Porter F.N.P.C. 29229 250.00 Office Visit 10/01/2006 10:30a Main Office Mariajose Porter F.N.P.C. 94049 250.00 530.81 272.0 786.50 Office Visit 08/29/2006 2:30p [place] [address] 360.69 250.00 530.81 Office Visit 01/12/2006 1:15p Main Office Joseph Liu M.D. 90538 530.81 311 250.00 Office Visit 01/01/2006 11:00a Main Office Joseph Liu M.D. 80634 311 787.2 250.00 Office Visit 04/17/2005 11:00a Main Office Nevin Becerra M.D. 66407 726.32 311 250.00 Office Visit 01/31/2005 2:30p Main Office Nevin Becerra M.D. 77379 250.00 466.0 272.0 Office Visit 01/10/2005 2:30p Main Office Nevin Becerra M.D. 21026 250.00 311 Office Visit 12/19/2004 10:15a Main Office Nevin Becerra M.D. 49475 250.00 466.0 V58.3 Office Visit 08/08/2004 10:15a Main Office Nevin Becerra M.D. 24223 250.00 272.0 Office Visit 05/04/2004 10:15a Main Office Nevin Becerra M.D. 89788 250.00 272.0 Office Visit 04/01/2004 1:00p Main Office Nevin Becerra M.D. 68227 250.00 719.43 Office Visit 03/18/2004 2:30p Main Office Nevin Becerra M.D. 27360 250.00 401.9 Office Visit 01/27/2004 4:45p Main Office Han Williamson M.D. 72699 401.9 250.00 Office Visit 06/18/2003 10:15a Main Office Aide Willams M.D. 13033 461.0 466.0 Office Visit 02/20/2003 3:45p Main Office Nevin Becerra M.D. 46434 250.00 726.32 Office Visit 01/05/2003 9:45a Main Office Nevin Becerra M.D. 15463 250.00 Office Visit 12/03/2002 9:30a Main Office Nevin Becerra M.D. 83463 461.0 Office Visit 10/01/2002 4:30p Main Office Aide Willams M.D. 44905 466.0 Office Visit 04/29/2002 4:15p Main Office Holli EdwardN.P.CReagan 90118 726.32 726.31 Plan of Care Future Appointment(s):11/23/2017 10:15 am - [facility]/12/2017 - CARMINE BrownCE11.40 Type 2 diabetes mellitus with diabetic neuropathy, unspComments:continue insulin, blood glucose monitoring....unfortunately he has lost motivation to make positive dietary changesFollow up:6 znbsjL01.13 Radiculopathy, cervicothoracic regionNew Medication:Cyclobenzaprine HCL 10 mgIbuprofen 800 mgComments:flexeril if needed , OK to use motrin, continue PTF32.89 Other specified depressive episodesRecommendations:start taking 1000 units of vitamin D every day.H61.22 Impacted cerumen, left earComments:successful irrigation, tolerated well
--- OUTSIDE RECORDS SUMMARY | 2017-11-05 15:09 | XMS REPORT ---
:1965 External Reference #:[id number] Author Organization [facility] Address [address] [place] [address] Phone [phone] Care Team Providers Name Role Phone Louie Walker M.D. Primary Care Physician Unavailable Payers Type Date Identification Numbers Payment Provider Subscriber Commercial Policy Number: [id number] [facility] Cesar Loomis PayID: [id number] [place] [address] Problems Date Description Provider Status Onset: 02/08/2012 Alcohol dependence FITO BrownP-Alpa Active Onset: 02/08/2012 Tobacco user BRAD Brown-Alpa Active Onset: 02/08/2012 Type 2 diabetes mellitus FITO BrownP-Alpa Active Onset: 02/08/2012 Pure hypercholesterolemia Danielle Morse [employer]C Active Onset: 02/08/2012 Depressive disorder FITO BrownP-Alpa Active Onset: 02/08/2012 Chronic ischemic heart disease FITO BrownP-Alpa Active Onset: 02/08/2012 Essential hypertension Danielle Morse [employer]C Active Onset: 12/07/2014 Carotid bruit FITO BrownP-C [...] Form Strength Qnty SIG Indications Ordering Provider Oxycodone-Acet 09/10 Active Tablets 5-325mg 30tabs 1 by mouth M54.32 Shawnti R. aminophen every 4 Storm, hours if STEAM BLOCKER-C needed for severe pain Combivent 08/20 Active Aerosol 20-100mcg/A 12gm 2 puff [address]44[address] twice a [place], day MD Zarate HFA 08/20 Active Aerosol 108(90Base) 8.500gm 1-4 puffs J44.9 Ramón /2016 mcg/Act every 6 [place], hours as needed Spacer, 08/20 Active 1units 1 use to J44.9 Ramón Pediatric inhale [place], medication MD banerjee Combivent 08/18 Active Aerosol 18-103mcg/A 1units Inhale 2 ct puffs 2 (two) times a day Nicoderm CQ 06/22 Active Patches 21mg/24HR 14units apply one Z72.0 Shawnti R. 24HR patch to [place], skin, STEAM BLOCKER-C replace daily for up to 14 days then reduce to 14mg patch Nicoderm CQ 06/22 Active Patches 14mg/24HR 28units apply one Z72.0 Shawnti R. /2016 24HR patch to [place], skin, [employer]ER-C replace daily for up to 28 days then go to 7mg Nicoderm CQ 06/22 Active Patches 7mg/24HR 14units apply 1 Z72.0 Shawnti R. /[address] [place], skin daily STE[employer] BLOCKER-C for 14 days Wellbutrin SR 06/22 Active Tablets 150mg 60tabs 1 by mouth Z72.0 Shawnti R. ER 12HR twice [place], daily [employer]ER-C Novolog 02/23 Active Solution 100Unit/ML 15ml inject 5 E11.65 Shawnti R. Flexpen Pen-Injec units [place], t under the STE[employer]ER-C skin three times a day before meals as directed Freestyle Lite 01/22 Active Strips 200unit use for E13.9 Shawnti R. Test /2016 s glucose , monitoring STE[employer]ER-C 5-6 times daily Lantus 01/05 Active Solution 100Unit/ML 30ml inject 40 E11.40 Shawnti R. Solostar Pen-Injec units once Storm, t daily for STE[employer]ER-C diabetes Novofine 01/05 Active Misc 30G X 8 mm 100unit use daily E11.40 Shawnti R. s with [place], lantus pen [employer]ER-C to administer insulin daily Gabapentin 10/24 Active Capsules 300mg 60caps take two M54.32 Mynor 2016 by mouth Suyapa before bed III, STE[employer]ER-C Marysol Contour 11/19 Active Kit W/Device 1units use to E11.65 Shawnti R. Blood Glucose test blood , Monitoring sugar STEAM [employer]ER-C System daily for diabetes Marysol Contour 11/19 Active Strips 100unit test 2 E11.65 Shawnti R. Blood Glucose /2014 s times per Storm, Test Strips day [employer]-C Lancets Ultra 11/19 Active Misc Thin 30G 100unit use to E11.65 Shawnti R. Thin 30G /2014 s test blood Storm, sugars [employer]ER-C twice daily and as needed Freestyle 04/21 Active Misc 100unit use to 250.00 Shawnti R. Lancets /2012 s test blood Storm, sugars 4-5 STE[employer]ER-C times daily as needed Freestyle Test 04/18 Active Strips 1Bottle use to E11.9 Shawnti R. /2009 check Storm, blood [employer]C sugars four times daily Lancets--One 04/18 Active Misc 100unit use daily 250.00 Shawnti R. Touch Ultra /2009 s as Storm, Soft directed [employer]-C to test blood sugar Tamsulosin HCL Active Capsules 0.4mg 2 tabs Ese, /0000 daily MD Titus Metoprolol Active Tablets 25mg Unknown Succinate ER /0000 ER 24HR Nicotrol 06/01 Hx Inhaler 10mg 336unit inhale 1 s cartridge Francheska, - inhaled Raffi, R.D. 08/20 repeatedly like a cigarette 16 times per day as needed for smoking cessation Sulfamethoxazo 04/27 Hx Tablets 800-160mg 14tabs 1 by mouth Haylie godinez/Trimethopri twice a hugo Pritchard DS - day Raffi, R.D. 08/20 Lidocaine-[place] 03/19 Hx Kit 4% 1units apply to [facility] Angelwneshai RReagan painful Storm, Dressing - area once [employer]ER-C 04/27 daily, not leave on for more than 12 hours Ibuprofen 01/05 Hx Tablets 800mg 90tabs [facility]. tablet by [facility], - mouth STE[employer]ER-C 08/20 every hours with food as needed for pain Lidocaine 01/05 Hx Patches 5% 30units apply one 4.32 Shawnti R. patch to [place], - low back [employer]ER-C 03/19 night, remove in the morning Prednisone 12/22 Hx Tablets 20mg 13tabs 3 by mouth 4.17 Angelwnti R. every day Brody, - x 2days, 2 STE[employer]ER-C 01/01 by mouth every day x 2 days, 1 by mouth every day x 2 days, 1/2 by mouth every day x 2 days Thiamine HCL 12/22 Hx Tablets 100mg 90tabs 1 by mouth 4.17 Angelwnti R. every day Brody, - STE[employer] BLOCKER-C 04/27 Folic + B12 12/22 Hx Tablets 800-1000mcg 90tabs 1 po daily M54.17 Shawnti R. Brody, - STE[employer]ER-C 04/27 Metaxalone 07/07 Hx Tablets 800mg 30tabs 1 tab by 4.32 mouth [place] - three III, [employer]ER-C 10/24 times day for muscle spasm Guaifenesin 03/07 Hx Syrup 100mg/5ML 300unit 2 teaspoon s every 4-6 Suyapa - hours for III, STE[employer] BLOCKER-C 10/24 cough and chest congestion Augmentin 02/01 Hx Tablets 875-125mg 20tabs 1 take by J20.9 mouth [place], - tablet 10/24 every hours for 10 days for infection Cortisporin 12/30 Hx Solution 3.5-18143-7 60units 4 left ear H60.392 three [place], - times a MD Clotrimazole 12/30 Hx Solution 1% 90units 3 drops B37.84 left ear [place], - three MD 10/24 times day Glipizide 10/28 Hx Tablets 5mg 60tabs 1 po bid E11.65 Danielle Dockery /2014 for Storm, - diabetes, [employer]ER-C 10/24 take with food Bupropion HCL 10/11 Hx Tablets 150mg 90tabs take 1 F33.1 Danielle RReagan ER (XL) ER 24HR tablet by Brody, - mouth STEAM BLOCKER-C 02/01 morning Metformin HCL 10/11 Hx Tablets 500mg 60tabs take one E11.65 Danielle Dockery tablet by [place], - mouth STE[employer]ER-C 10/28 twice a day with food Hydrocodone-Ac 07/29 Hx Tablets 5-325mg 30tabs 1 or 2 po M25.511 Danielle Dockery etaminophen /2014 QHS prn Brody, - pain [employer]ER[employer]C 10/11 Omeprazole 07/29 Hx Capsules 40mg 90caps 1 by mouth K21.0 Danielle RReagan /2014 DR every day Brody, - [employer]ER-C 10/24 Amoxicillin/Cl 01/07 Hx Tablets 875-125mg 20tabs 1 by mouth 486 Danielle Dockery avulanate /2014 twice a Storm, Potassium - day for 10 [employer]AM BLOCKER-C 01/17 days for infection Ventolin HFA 01/07 Hx Aerosol 108(90Base) 8gm inhale two Mynor mcg/Act puffs by Suyapa - mouth III, [employer]ER-C 04/27 every 4- hours as needed for wheezing/S OB Viagra 11/19 Hx Tablets 100mg 2tabs take N53.8 Shawnti R. /2014 one-half Brody, - to one [employer]ER-C 10/11 tablet /2014 before intercours e Levemir 11/19 Hx Solution 100Unit/ML 15ml inject 10 E11.65 Shawnti R. Flextouch Pen-Injec units Brody, - t before [employer]ER[employer]C 10/11, increase dose by 5 units every 3 days until fasting glucose is under 200 Novofine 11/19 Hx Misc 30G X 8 mm 50units use daily E11.65 Shawnti R. with Brody, - levimir [employer]C 10/28 flexpen Levitra 10/16 Hx Tablets 10mg 10tabs take 1 608.89 Shawnti R. /2013 tablet by Brody, - mouth as STEAM BLOCKER-C 10/16 needed prior to intercours e. Fluoxetine HCL 10/15 Hx Capsules 20mg 30caps 1 by mouth F33.1 Shawnti R. /2013 every day Brody, - [employer]ER-C 10/11 Metformin HCL 10/15 Hx Tablets 500mg 60tabs take one 250.02 Shawnti R. /2013 tablet by Brody, - mouth [employer]ER-C 11/19 twice a day with food Viagra 10/15 Hx Tablets 50mg 10tabs use 1/2 to 608.89 Shawnti R. /2013 1 tab Brody, - 1/2hr [employer]-C 10/16 prior to activity Lidocaine 07/02 Hx Patches 5% 60units apply 726.19 Shawnti R. /2013 patch to Storm, - the [employer]ER-C 10/11 area before, remove in the morning, do not leave on for more than 12 hours. can apply up to 2 Voltaren 09/25 Hx Gel 1% 300gm apply pea Shawnti R. sized Storm, - amount of STE[employer] BLOCKER-C 10/11 gel to the shoulder qid prn pain Tizanidine HCL 08/14 Hx Tablets 4mg 30tabs take one 728.85 Shawnti R. by mouth Brody, - before bed [employer]-C 10/11 if needed for pain and muscle spasm Naltrexone HCL 06/18 Hx Tablets 50mg 30tabs 1 po daily 303.90 Shawnti R. , - [employer]C 07/02 Campral 06/16 Hx Tablets 333mg 90tabs 1 po tid 303.[address] Morse, - STE[employer]ER-C 06/18 Nicoderm CQ 06/16 Hx Patches 21mg/24HR 14units apply 1 305.1 Shawnti R. 24HR patch to [facility], - skin, STE[employer] BLOCKER-C 07/02 change daily for 14 days.then go to 14mg dose Nicoderm CQ 06/16 Hx Patches 14mg/24HR 14units apply one 305.1 Shawnti R. 24HR patch to [facility], - skin, [employer]ER-C 07/02 replace daily for 14 days, start after 21mg patches completed. Nicoderm CQ 06/16 Hx Patches 7mg/24HR 14units apply one 305.1 Shawnti R. 24HR patch to [facility], - skin, [employer]ER-C 07/02 change daily for three weeks, start after 14mg dose is complete Fluoxetine HCL 06/16 Hx Capsules 40mg 30caps take 1 311 Shawnti R. capsule Brody, - once daily [employer]-C 07/02 for depression Fluoxetine HCL 05/08 Hx Capsules 20mg 90caps 1 po qd 311 Shawnti R. for Storm, - depression [employer]C 06/16 Metformin HCL 05/08 Hx Tablets 500mg 30tabs take one 250.02 Shawnti R. ER ER 24HR tablet by Brody, - mouth [employer]-C 07/02 every day for diabetes Levemir 04/21 Hx Solution 100Unit/ML 30ml inject 10 250.00 Shawnti R. Flexpen units Brody, - daily into [employer]ER-C 07/02 tissue, increase dose by 2 units every other day until morning blood sugars are under 150 Flex Pen 04/21 Hx 30units use with 250.00 Angelwnti RReagan [place] hernan Morse, - daily to [employer]ER-C 07/02 insulin Freestyle Test 04/21 Hx Strips 200unit use to E13.9 Haylie Strips /2012 s nadia Pritchard, - blood M.Shorty, R.D. 01/22 sugars - times daily Thiamine HCL 04/14 Hx Tablets 100mg 90tabs 1 po qd 303.90 Shawnti R. /2012, - [employer]ER-C 07/02 Folic Acid 04/14 Hx Tablets 1mg 90tabs 1 po qd 303.90 Shawnti R. /2012, - [employer]ER-C 07/02 Naproxen Ec 04/14 Hx Tablets 500mg 20tabs 1 po bid 451.89 Angelwneshai R. /2012 if needed Brody, - for [employer]ER-C 07/02 phlebitism , take with food Gentamicin 09/09 Hx Ointment 0.1% 1tube 1 cm 372.00 Angelwnti R. Sulfate ribbon qid Brody, - left eye [employer]ER-C 05/08 for 5 days /2012 or until resolved Azithromycin 01/25 Hx Tablets 250mg 6tabs take 2 461.8 Delmy /2012 tablets po Susanna Hester, - today and M.D. 05/08 one tablet /2012 po daily days 2-5 Loratadine 01/25 Hx Tablets 10mg 30tabs 1 po qd 461.8 Delmy /2011 Susanna Hester, - M.D. 05/08 Chantix 06/26 Hx Tablets 0.5mg X 11 1month take by Angelwnti R. /2010 & 1 mg mouth as Brody, - X directed [employer]-C 05/08 Antabuse 12/01 Hx Tablets 500mg 30tabs 1 po qam 303.90 Angelwnti R. /2010 Brody, - STE[employer] BLOCKER-C 05/08 Nicoderm CQ 12/01 Hx Patches 21mg/24HR 14units apply 1 305.1 Angelwnti R. /2010 24HR patch to [place], - skin, [employer]ER-C 05/08 change daily for 14 days.then go to 14mg dose Nicoderm CQ 12/01 Hx Patches 14mg/24HR 14units apply one 305.1 Shawnti R. 24HR patch to [place], - skin, [employer]-C 05/08 replace daily for 14 days, start after 21mg patches completed. Nicoderm CQ 12/01 Hx Patches 7mg/24HR 14units apply one 305.1 Shawnti R. 24HR patch to [place], - skin, [employer]-C 05/08 change daily for two weeks, start after 14mg dose is complete Prozac 11/15 Hx Capsules 20mg 90caps 1 po qd 311 Shawnti R. /2010 for Storm, - depression [employer]C 05/08 Aspirin 06/20 Hx Tablets 325mg 1 daily 414.9 Shawnti R. /2009 DR for heart Storm, - [employer]-C 05/08 Carvedilol 06/20 Hx Tablets 3.125mg 1 po bid 414.9 Shawnti R. /2009 for heart Storm, - [employer]-C 05/08 Plavix 06/20 Hx Tablets 75mg 1 po qd 414.9 Shawnti R. /2009 for heart Storm, - [employer]ER-C 05/08 Simvastatin 06/20 Hx Tablets 80mg 1 po qhs 414.9 Shawnti R. for [place], - cholestero [employer]C 05/08 l Metformin HCL 05/23 Hx Tablets 750mg 30tabs 1 po daily 250.00 Shawnti R. ER /2009 ER 24HR for Storm, - Diabetes [employer]-C 05/08 Glipizide ER 05/23 Hx Tablets 2.5mg 30tabs 1 po daily 250.00 Shawnti R. /2009 ER 24HR for Storm, - diabetes [employer]C 05/08 Metformin HCL 05/02 Hx Tablets 500mg 30tabs 1 po qam 250.00 Shawnti R. /2009 ER 24HR for Storm, - diabetes [employer]C 05/23 Omeprazole 04/18 Hx Tablets 20mg 30tabs on po 535.00 Shawnti R. /2009 DR seth-ac for Storm, - stomach [employer]-C 06/20 acid Freestyle 04/18 Hx Glucometer 1Meter use to 250.00 Shawnti R. Monitor test blood Storm, - sugars [employer]-C 05/08 Contour Blood 04/18 Hx Kit w/Device 1meter use as 250.00 Shawnti R. Glucose System directed , - to test [employer]ER-C 04/18 blood sugar Zithromax 11/30 Hx Tablets 250mg 6tabs 2 po on 466.0 Mariajose A. Z-Rambo /2009 day 1, 1 [place], - po on days F.N.P.C. 04/18 2- Augmentin 05/13 Hx Tablets 875mg 20tabs one po bid 522.5 Shawnti R. /2008 for dental Storm, - infection [employer]C 05/23 Naprosyn Ec 05/13 Hx Tablets 500mg 60tabs 1 po bid 522.5 Shawnti R. /2008 with food Storm, - for pain, [employer]C 05/02 stop taking if stomach pain develops Vicodin 05/13 Hx Tablets 5-500mg twenty 1-2 tabs 522.5 Shawnti R. /2008 po q6hr [facility], - prn pain [employer]ER-C 05/28 Chlorhexidine 05/13 Hx Solution 0.12% 1Bottle rinse and 522.5 Shawnti R. Gluconate spit 10ml [facility], - twice STE[employer]ER-C 04/18 daily for mouth bacteria Nicoderm CQ 03/15 Hx Patches 21mg/24HR 21units apply 1 305.1 Mariajose A. /2008 24HR patch to [place], - skin daily F.N.P.C. 05/02 Nicotrol 07/29 Hx Inhaler 10mg 1Box Use as 305.1 Mariajose A. Inhaler /2007 Directed [place], - 6-16 F.N.P.C. 05/02 cartridges per day Physical 07/29 Hx evaluate 724.5 Mariajose A. Therapy /2007 and treat [place], - neck and F.N.P.C. 05/02 back pain Ibuprofen 07/29 Hx Tablets 600mg 30tabs One PO 724.5 Mariajose A. bid with [place], - food F.N.P.C. 05/02 Chantix 06/12 Hx Misc Starter QS Use as 305.1 Mariajose A. /2007 Pack Directed [place], - F.N.P.C. 06/12 Chantix 06/12 Hx Misc Starter QS Use as 305.1 Mariajose A. /2007 Pack Directed [place], - F.N.P.C. 07/29 Prilosec OTC 01/22 Hx Tablets 20mg 60tabs 1 PO bid 530.[address] Porter, - F.N.P.C. 05/02 Metformin HCL 12/19 Hx Tablets 500mg 120tabs 2 PO bid 250.00 Mariajose A. /2007 as [place], - Directed F.N.P.C. 12/19 Januvia 12/19 Hx Tablets 100mg 30tabs 1 PO qd 250.00 Mariajose A. [place], - F.N.P.C. 05/02 Keflex 06/27 Hx Capsules 500mg 20caps One PO bid 250.00 Mariajose A. For 10 [place], - Days F.N.P.C. 07/11 Zithromax 03/08 Hx Tablets 250mg 6tabs 2 po on 466.0 Mariajose A. Z- day 1, 1 [place], - po on days F.N.P.C. 03/29 2- Robitussin A-c 03/08 Hx Syrup 100mg;10mg/ 8Oz one to 466.0 Mariajose A. 5ML two tsp po [place], - every four F.N.P.C. 18 hours prn cough Vermox 01/14 Hx Chewtabs 100mg 2units one qd x1 Mariajose A. for [place], - pinworm, F.N.P.C. 03/29 repeat x1 after 7 days Wellbutrin SR 12/13 Hx 3 150mg 60units 1 po bid 311 Mariajose A. Tatyana Porter F.N.P.C. 03/08 Paxil 10/18 Hx Tablets 20mg 30tabs 1 PO qd 311 Mariajose A. /2005 Tatyana Porter F.N.P.C. 12/13 Glucophage 10/01 Hx Tablets 500mg 90tabs 1 before 250.00 Mariajose A. /2005 breakfast, [place], - 1 before F.N.P.C. 06/12 lunch, before dinner Keftab 08/29 Hx Tablets 500mg 15tabs tab po tid 250.00 Esperanza /2006 genaro Walter NP - 12/13 Protonix 08/29 Hx Tablets 40mg 250.00 Esperanza /2006 VADIM Walter - 12/13 Prilosec OTC 01/01 Hx Capsules 20mg 30caps 1 po qday 787.2 Mariajose A. /2005 Tatyana Porter F.N.P.C. 12/26 530.81 Fluoxetine 01/10/2005 - Hx Capsules 20mg 30caps use 1 tabs 311 Nevin 10/18/2006 A day Raffi Becerra Z-Rambo 12/19/2004 - Hx Tablets 250mg 6tabs use 2 tabs Nevin 01/10/2005 on day 1, Mariam, then 1 tab MReaganD. a day Jabier-Micro 05/24/2004 - Hx 60units use bid 250.00 Nevin let 05/08/2013 Raffi Becerra Accu-Chek 03/22/2004 - Hx Meter 1units use bid 250.00 Nevin Advantage 05/08/2013 Joyce Becerra M.D. Accucheck 03/22/2004 - Hx 100units use bid 250.00 Mariajose A. Comfort Curve 05/08/2013 [place] Test Strips F.N.P.CReagan dx: diabetes mellitus Accu-Chek 03/22/2004 - Hx Lancets 100units use bid 250.00 Nevin Safe-T-Pro 05/08/2013 Jabier Becerra M.D. Glucotrol XL 03/18/2004 - Hx Tablets 10mg 30tabs use 1 tab 250.00 Mariajose A. 05/02/2010 once daily Gayle PorterPSavannah Glucometer 12/15/2002 - Hx Ascensia 60units check fs Nevin Elite Test 12/19/2004 bid-tid as Mariam, Strips directed Raffi Lancets 12/15/2002 - Hx 60units use as 250.00 Nevin 05/08/2013 directed Raffi Becerra Ceftin 10/01/2002 - Hx Tablets 500mg 20tabs one bid x10 Aide PReagan 03/16/2004 days Raffi Willams Albuterol 10/01/2002 - [...] q po qd 272.0 Mariajose A. 05/02/2010 Gayle PorterPReaganCReagan Aspirin - Hx Gelcaps 325mg Unknown 05/02/2010 [...] CPT Code Status Date Vaccine Lot # [id number] Given 08/20/2017 Pneumovax 23 (PPSV23) 65+ years or high risk 2 to [id number] 62 year old [address]61 Given 08/20/2017 Influenza Virus Vaccine, Quadrivalent, 3 Yr > [id number] Quad, Preserv Free 94252 Given 04/19/2017 Tdap (Adacel) [id number] 33432 Given 12/19/2004 Tetanus 84722 Given 12/15/2004 Tetanus 10590 Refused 12/30/2015 Influenza Virus Vaccine, Quadrivalent, 3 Yr > Quad, Preserv Free Vital Signs Date Vital Result Comment 09/25/2017 Weight 160.00 lb Weight in kg's [...] 5-6 Urine Blood 50 High Neg Specific [place] 1.015 1.01-1.02 Urine Ketones 1+ High Neg [...] Color Yellow Urine Appearance Clear Urine Specific [place] 1.021 1.010-1.030 Urine pH 6.0 5-9 Urine [...] Color Yellow Urine Appearance Clear Urine Specific [place] 1.034 High 1.010-1.030 Urine Esterase Negative Negative [...] NEG Neg Urine Blood NEG Neg Specific [place] N/A Low 1.01-1.02 CBC With Electronic Diff [...] Glucose By Moniter 286 High 78-110 1 Obgyn Hospitalist Physician: [id number] SEE RESULT BELOW Name: CESAR LOOMIS : [address]: Haylie Pritchard MD Acct: [id number] Unit: [id number] AGE: 51 Location: [facility] Re04/27/17 SEX: M Status: REG REF SPEC: [id number] ROEL: 04/27/17-[address]: Haylie Pritchard MD REQ: [id number] RECD: 04/27/17 STATUS: COMP _ SOURCE: URINE SPDESC: ORDERED: Urine Culture COMMENTS: [id number] Urine Source: Random Procedure Result Reported Site Urine Culture Final 04/29/17- 08 ML No Growth (<1,000 CFU/mL) * ML - MAIN LAB (PSC1) . END OF REPORT * ML=Testing performed at Main Lab DEPARTMENT OF PATHOLOGY, [address] [place] [address] Esa Daniel M.D. Director [facility] # [id number] 4 [id number] Serum levels of PSA measured using the Rich D-Sight DXI Hybritech immunoassay should not be interpreted [...] answering service at 2052 on 04/14/13 by [id number]. Doctor to return call. 22 Serum levels of PSA measured using the Rich [place] DXI Hybritech immunoassay should not be interpreted [...] by the World Health Organization (WHO) in 1983 as a standardized system of reporting PT [...] IN SELECTIVE PATIENTS <6.0%. PLEASE REFER TO [employer] DIABETIC CARE GUIDELINES FOR FURTHER [...] IN SELECTIVE PATIENTS <6.0%. PLEASE REFER TO [employer] DIABETIC CARE GUIDELINES FOR FURTHER [...] has been shown to interfere with the Jendrassik-Monserrate method for measuring total bilirubin. Samples from [...] <15 (or dialysis) 46 VERBAL TO DUY BY NADEEM at 0826 on 05/13/10. Results read back accurately. New Reference Range and Interpretation effective 08/15/2002 TnI (ng/ml) INTERPRETATION Less Than 0.06 ng/mL NOT SUPPORTIVE OF DIAGNOSIS OF AL 0.06 - 0.50 ng/ml INDETERMINATE: SUGGEST SERIAL STUDIES IF CLINICALLY INDICATED. Greater than 0.5 ng/mL CONSISTENT WITH DIAGNOSIS OF AL . 47 Recommended INR for Patients on [...] IN SELECTIVE PATIENTS <6.0%. PLEASE REFER TO [employer] DIABETIC CARE GUIDELINES FOR FURTHER [...] IN SELECTIVE PATIENTS <6.0%. PLEASE REFER TO [employer] DIABETIC CARE GUIDELINES FOR FURTHER [...] <0.06 ng/ml NOT SUPPORTIVE OF DIAGNOSIS OF AL 0.06 - 0.50 ng/ml INDETERMINATE: SUGGEST SERIAL STUDIES IF CLINICALLY INDICATED. > 0.5 ng/ml CONSISTENT WITH DIAGNOSIS OF AL . 69 Anion gap measurement may be of limited value in the presence of any alkalosis, especially in a combined acid base disorder. . 70 THERAPEUTIC TARGET FOR THE TREATMENT OF DIABETES MELLITUS PATIENTS IS <7% HBA1C, AND IN SELECTIVE PATIENTS <6.0%. PLEASE REFER TO [employer] DIABETIC CARE GUIDELINES FOR FURTHER [...] IN SELECTIVE PATIENTS <6.0%. PLEASE REFER TO [employer] DIABETIC CARE GUIDELINES FOR FURTHER [...] IN SELECTIVE PATIENTS <6.0%. PLEASE REFER TO [employer] DIABETIC CARE GUIDELINES FOR FURTHER INFORMATION. 84 THERAPEUTIC TARGET FOR THE TREATMENT OF DIABETES MELLITUS PATIENTS IS <7% HBA1C, AND IN SELECTIVE PATIENTS <6.0%. PLEASE REFER TO [employer] DIABETIC CARE GUIDELINES FOR FURTHER [...] IN SELECTIVE PATIENTS <6.0%. PLEASE REFER TO [employer] DIABETIC CARE GUIDELINES FOR FURTHER [...] IN SELECTIVE PATIENTS <6.0%. PLEASE REFER TO [employer] DIABETIC CARE GUIDELINES FOR FURTHER INFORMATION. 95 THERAPEUTIC TARGET FOR THE TREATMENT OF DIABETES MELLITUS PATIENTS IS <7% HBA1C. [employer] DIABETES CARE 2002;25:S33-S49. . 96 Classification: Borderline High . 97 Classification: Low . 98 CALCULATED LDL APPROXIMATES THE VALUE OF A DIRECT LDL MEASUREMENT. Classification: High . 99 Anion gap measurement may be of limited value in the presence of any alkalosis, especially in a combined acid base disorder. . Procedures Date CPT Code Description Status 02/04/2015 17796 Removal Of Foreign Body, Foot, Subcutaneous Completed 09/23/2012 57593 Removal-Impacted Cerumen Completed 10/01/2006 46026 EKG, at Least 12 Leads w/Interpretation and Report Completed 08/29/2006 88384 Removal Of Foreign Body Completed 06/20/2004 43728 EKG, at Least 12 Leads w/Interpretation and Report Completed Encounters Type Date Location Provider CPT E/M Dx Office Visit 09/25/2017 10:00a Main Office Mynor Dale III, STEAM BLOCKER-C 16583 M54.13 Office Visit 08/20/2017 3:00p [place] [address] J44.9 I25.84 Z23 Office Visit 06/22/2017 3:00p Main Office Danielle Morse [employer]C 29687 Z72.0 E11.65 Office Visit 04/27/2017 4:45p Main Office Haylie Pritchard M.D., R.D. 74970 N40.1 Office Visit 04/19/2017 3:45p Main Office Danielle Morse [employer]-C 97773 E11.65 S61.213A H61.23 Z12.5 Z23 Office Visit 03/19/2017 3:45p Main Office Danielle Morse [employer]C 18115 M54.17 E11.65 Office Visit 02/23/2017 4:30p Main Office Danielle Morse [employer]C 30699 E11.65 I25.10 M54.32 Office Visit 02/02/2017 3:00p Main Office Danielle Morse [employer]C 98487 E11.65 M54.32 Office Visit 01/05/2017 4:15p Main Office Danielle Morse, STE[employer] BLOCKER-C 44396 M54.32 E11.40 Office Visit 12/22/2016 3:15p Main Office Danielle Morse, STE[employer] BLOCKER-C 76125 M54.32 M54.17 Office Visit 10/24/2016 3:15p Main Office Danielle Morse, STE[employer]ER-C 47534 M54.32 M54.17 E11.40 F33.1 Office Visit 07/07/2016 4:00p Main Office Mynor Dale III, STEAM BLOCKER-C 71894 M54.32 Office Visit 03/07/2016 10:30a Main Office Mynor Dale III, STEAM BLOCKER-C 93230 R05 Office Visit 02/02/2016 10:45a Main Office [place]ón [place] [address] J06.9 J20.9 E11.65 Office Visit 01/25/2016 1:30p Main Office Mynor Dale III, STEAM BLOCKER-C 64839 J06.9 H60.392 Office Visit 12/30/2015 9:00a Main Office [place] [address] B37.84 H60.392 Office Visit 10/28/2015 10:30a Main Office Danielle Morse, STEAM BLOCKER-C 22044 E11.65 F10.19 Office Visit 10/11/2015 11:30a Main Office Danielle Morse, STEAM BLOCKER-C 94768 E11.65 F17.218 F10.19 F33.1 Office Visit 10/04/2015 2:45p [place] [address] H61.22 Office Visit 07/29/2015 2:45p Main Office Danielle Morse, [employer]-C 62156 K21.0 M25.511 M25.512 S96.011A I80.00 F17.218 Office Visit 01/07/2015 3:15p Main Office Danielle Morse, [employer]-C 02077 486 Office Visit 12/07/2014 2:30p Main Office Danielle Morse, [employer]C 85462 250.02 608.89 785.9 Office Visit 11/19/2014 2:30p Main Office Danielle Morse, [employer]C 19833 250.02 608.89 785.9 Office Visit 10/15/2014 2:15p Main Office Danielle Morse, [employer]C 45115 250.02 296.32 303.90 608.89 Office Visit 07/02/2014 10:15a Main Office Danielle Morse, [employer]C 22693 726.19 303.90 Office Visit 09/25/2013 11:30a Main Office Danielle Morse, [employer]C 16867 726.19 Office Visit 08/14/2013 4:30p Main Office Delmy Hester M.D. 79187 728.85 Office Visit 06/16/2013 3:15p Main Office Dainelle Morse, [employer]C 77421 296.32 250.02 303.90 305.1 Office Visit 05/08/2013 2:30p Main Office Danielle Morse, [employer]C 18831 296.32 250.02 Office Visit 04/21/2013 2:45p Main Office Danielle Morse, [employer] 99251 250.00 411.89 303.90 Office Visit 04/14/2013 2:00p Main Office Danielle Morse, [employer] 51801 451.89 303.90 250.00 786.2 Office Visit 09/23/2012 10:45a Main Office Nevin Blanca, [employer]C 32142 465.9 380.4 Office Visit 09/09/2012 2:15p Main Office Danielle Morse, [employer]C 82658 372.00 Office Visit 01/26/2012 4:45p Main Office Delmy Hester M.D. 03588 461.8 Office Visit 12/01/2010 9:30a Main Office Danielle Morse, [employer] 88858 303.90 305.1 Office Visit 11/15/2010 11:00a Main Office Danielle Morse, [employer]C 46962 250.00 272.0 311 Office Visit 07/21/2010 9:15a Main Office Danielle Morse, [facility] 28128 250.00 303.90 Office Visit 06/20/2010 2:45p Main Office Danielle Morse, [facility] 00707 414.9 250.00 303.90 305.1 272.0 401.9 Office Visit 05/23/2010 2:30p Main Office Danielle Morse, [facility] 21385 250.00 414.9 Office Visit 05/02/2010 10:15a Main Office Danielle Morse, [facility] 75834 250.00 414.9 303.90 Office Visit 04/18/2010 10:45a Main Office Danielle Morse, [facility] 74211 414.9 250.00 305.1 272.0 401.9 535.00 303.90 Office Visit 11/30/2009 3:30p Main Office Mariajose Porter F.N.P.C. 16661 466.0 250.00 414.9 Office Visit 05/13/2009 10:00a Main Office Danielle Morse, [facility] 94143 522.5 Office Visit 03/15/2009 9:15a Main Office Mariajose Porter F.N.P.[facility] 32724 305.1 Office Visit 09/08/2008 10:00a Main Office Mariajose Porter F.N.P.[facility] 53356 250.00 401.9 272.0 305.1 414.9 302.72 Office Visit 07/29/2008 2:00p Main Office Mariajose Porter F.N.P.[facility] 50064 724.5 723.1 305.1 250.00 272.0 401.9 Office Visit 06/12/2008 1:30p Main Office Mariajose Porter F.[facility] 44567 250.00 272.0 305.1 401.9 414.9 530.81 Office Visit 01/23/2008 3:00p Main Office Mariajose Porter F.N.P.[facility] 84660 250.00 272.0 305.1 401.9 305.00 311 Office Visit 12/19/2007 3:30p Main Office Mariajose Porter F.N.P.[facility] 24664 250.00 305.1 401.9 272.0 530.81 Office Visit 08/13/2007 1:00p Main Office Mariajose Porter F.[facility].P.[facility] 08498 786.2 305.1 272.0 250.00 Office Visit 07/11/2007 12:00p Main Office Mariajose Porter F.N.P.C. 98764 250.00 305.1 272.0 681.00 Office Visit 06/27/2007 11:00a Main Office Mariajose Porter F.N.P.[facility] 35701 681.00 305.1 250.00 272.0 Office Visit 04/03/2007 11:15a Main Office Louie Walker M.D. 08016 379.91 Office Visit 03/08/2007 10:30a Main Office Mariajose Porter [facility] 38054 466.0 305.1 Office Visit 01/03/2007 2:45p Main Office Mariajose Porter F.N.P.C[facility] 41722 311 305.1 Office Visit 12/13/2006 11:45a Main Office Mariajose Porter F.N.P.C. 88006 250.00 530.81 272.0 311 Office Visit 11/08/2006 10:00a Main Office Mariajose Porter F.N.P.C. 67622 250.00 530.81 272.0 786.50 401.9 Office Visit 10/18/2006 9:30a Main Office Mariajose Porter F.N.P.C. 72225 250.00 530.81 311 272.0 Office Visit 10/08/2006 3:00p Main Office Mariajose Porter F.N.P.C. 11845 250.00 Office Visit 10/01/2006 10:30a Main Office Mariajose Porter F.N.P.C[facility] 39644 250.00 530.81 272.0 786.50 Office Visit 08/29/2006 2:30p [place] [address] 360.69 250.00 530.81 Office Visit 01/12/2006 1:15p Main Office Joseph Liu M.D. 50171 530.81 311 250.00 Office Visit 01/01/2006 11:00a Main Office Joseph Liu M.D. 22934 311 787.2 250.00 Office Visit 04/17/2005 11:00a Main Office Nevin Becerra M.D. 24745 726.32 311 250.00 Office Visit 01/31/2005 2:30p Main Office Nevin Becerra M.D. 28040 250.00 466.0 272.0 Office Visit 01/10/2005 2:30p Main Office Nevin Becerra M.D. 06740 250.00 311 Office Visit 12/19/2004 10:15a Main Office Nevin Becerra M.D. 69736 250.00 466.0 V58.3 Office Visit 08/08/2004 10:15a Main Office Nevin Becerra M.D. 63811 250.00 272.0 Office Visit 05/04/2004 10:15a Main Office Nevin Becerra M.D. 76642 250.00 272.0 Office Visit 04/01/2004 1:00p Main Office Nevin Becerra M.D. 91166 250.00 719.43 Office Visit 03/18/2004 2:30p Main Office Nevin Becerra M.D. 29390 250.00 401.9 Office Visit 01/27/2004 4:45p Main Office Han Williamson M.D. 41439 401.9 250.00 Office Visit 06/18/2003 10:15a Main Office Aide Willams M.D. 61623 461.0 466.0 Office Visit 02/20/2003 3:45p Main Office Nevin Becerra M.D. 60758 250.00 726.32 Office Visit 01/05/2003 9:45a Main Office Nevin Becerra M.D. 73469 250.00 Office Visit 12/03/2002 9:30a Main Office Nevin Becerra M.D. 55539 461.0 Office Visit 10/01/2002 4:30p Main Office Aide Willams M.D. 15201 466.0 Office Visit 04/29/2002 4:15p Main Office Gayle EdwardPReaganCReagan 56752 726.32 726.31 Plan of Care Future Appointment(s):10/12/2017 11:00 am - [facility]609/25/2017 - Mynor Dale III, [employer] BLOCKER-CM54.13 Radiculopathy, cervicothoracic regionComments:Will wait on x-ray until results of EMG. Based on exam, I strongly suspect muscular origin for a large source of his discomfort. I advised him to use heat to the upper back, neck and left shoulder. I also advised him to restart Gabapentin for the time-being.
--- OUTSIDE RECORDS SUMMARY | 2017-11-05 15:11 | XMS REPORT ---
:1965 External Reference #:[id number] Author Organization [facility] Address [address] [address] Phone [phone] Care Team Providers Name Role Phone Yaritza Skinner NP Primary Care Physician Unavailable Payers Type Date Identification Numbers Payment Provider Subscriber Commercial Policy Number: [id number] Total Care/[facility] Jose Loomis PayID: [id number] [address] [address] [place] [address] Problems Date Description Provider Status Onset: 05/28/2013 Coronary arteriosclerosis Cali Hameed M.D. Onset: 05/28/2013 Electrocardiogram abnormal Cali Hameed M.D. Onset: 05/28/2013 Benign essential hypertension Cali Hameed M.D. Onset: 05/28/2013 Old myocardial infarction Cali Hameed M.D. Onset: 05/28/2013 Hyperlipidemia Cali Hameed M.D. Onset: 08/11/2015 Lesion of ulnar nerve Wes Epstein M.D. Active Onset: 12/10/2015 Lateral epicondylitis Nicolette Martin MD Active Onset: 12/10/2015 Carpal tunnel syndrome Nicolette Martin MD Active Onset: 12/10/2015 Type 2 diabetes mellitus with Nicolette Martin MD Active diabetic polyneuropathy Onset: 04/04/2017 Essential hypertension Cali Hameed M.D. 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 Mauser, Raffi Rosuvastatin 05/09/ Active Tablets 10mg 30tabs take 1 tab I25.118 Qutaybeh Calcium 2017 by mouth S. every day Raffi Faria Lantus / Active Solution 100Unit/ML as Unknown Solostar 0000 Pen-Inject directed (sliding scale) Flomax / Active Capsules 0.4mg 1 by mouth Unknown 0000 twice daily Gabapentin / Active Capsules 300mg take 2 Unknown 0000 tabs by mouth every night Bupropion HCL / Active Tablets ER 150mg 1 by mouth Unknown ER (SR) 0000 12HR every day Oxycodone-Acet / Active 5-325mg 1-2 every Unknown aminophen 0000 4 hrs prn Aspirin / Active Tablets DR 325mg 1 by mouth I25.118 Unknown 0000 every day Metoprolol 05/09/ Hx Tablets ER 25mg 30tabs 1 by mouth R07.9 Qutaybeh Succinate ER 2017 - 24HR at night S. 08/31/ Fern Faria M.D. Aspirin Adult 05/09/ Hx Tablets DR 81mg 1 by mouth I25.118 Qutaybeh Low Dose 2017 - every day S. 08/29/ Fern Faria M.D. Wrist Brace 12/10/ Hx Misc 2units wear at G56.01 Nicolette Ultra-Lite 2015 - night MD Melvin Martin 04/03/ Tunnel/One 2017 Size Neurontin 08/11/ Hx Capsules 300mg 30caps 1 by mouth Wes 2015 - every Tete, 11/16/ night at M.D. 2016 bedtime No Active 03/12/ Hx Unknown Medications 2013 - 2013 No Active 02/12/ Hx Unknown Medications 2013 - 2013 [place] 02/12/ Hx Tablets 5-325mg 15tabs 1po q6 hr Nidia 2013 - prn pain Khan, 03/11/ MIshan 2013 No Active 11/27/ Hx Unknown Medications 2013 - 2013 [place] 11/27/ Hx Tablets 5-325mg 5tabs 1po q4-6 Nidia 2013 - hr prn Khan, 02/12/ pain Raffi 2013 No Active 08/21/ Hx Unknown Medications 2010 - 2012 Simvastatin 11/10/ Hx Tablets 80mg 90tabs 1 po qhs Qutaybeh 2009 - S. 08/21/ Giana, 2010 SusannaDReagan Simvastatin 11/03/ Hx Tablets 80mg 30tabs 1 po qhs Qutaybeh 2009 - S. 01/09/ Giana, 2010 M.DReagan Aspirin Ec 08/31/ Hx Tablets DR 325mg 90tabs 1 po qd Rubin Johnson, 08/21/ Raffi 2011 Asa 05/17/ Hx Qutaybeh 2009 - S. 06/16/ Giana, 2009 Raffi Coreg 05/17/ Hx Tablets 3.125mg 180tab 1 po bid Qutaybeh 2009 - s S. 08/21/ Giana, 2010 M.DReagan Simvastatin 01/15/ Hx Tablets 20mg 30tabs 1 po qd Qutaybeh 2008 - S. 10/26/ Maghaydivan, 2008 MIshan Januvia 08/27/ Hx Tablets 100mg 30tabs 1 PO qd Qutaybeh 2007 - S. 12/31/ Giana, 2008 M.D. Aspirin 06/03/ Hx Tablets 325mg 1 PO qd Qutaybeh 2007 - S. 10/26/ hajeff, 2008 M.D. Plavix 12/19/ Hx Tablets 75mg 30tabs 1 po qd Qutaybeh 2007 - S. 10/26/ [facility] Lisinopril 12/19/ Hx Tablets 10mg 30tabs 1 po qd Qutaybeh 2007 - S. 10/26/ [facility] M.[facility] Simvastatin 12/19/ Hx Tablets 20mg 30tabs take one Qutaybeh 2007 - tablet by S. 08/27/ mouth abdulkadir, 2007 daily at M.D. bedtime Metformin HCL 12/19/ Hx Tablets 500mg 60tabs 1 PO bid Qutaybeh 2007 - S. 08/27/ [facility] M.D[facility] Glipizide ER 12/19/ Hx Tablets ER 10mg 180tab 1 PO Qutaybeh 2007 - 24HR s S. [facility] 2008 M.D. Toprol XL 06/27/ Hx Tablets ER 100mg 30tabs 1 po qd Qutaybeh 2006 - 24HR S. 10/26/ [facility] 2008 M.[facility] Wellbutrin 02/20/ Hx Tablets 75mg 1 PO qd Qutaybeh 2006 - S. 06/27/ [facility] 2006 M.D. Lisinopril 11/15/ Hx Tablets 5mg 30tabs 1 po qd Qutaybeh 2006 - S. 06/27/ [facility] 2007 M.D. Plavix 11/01/ Hx Tablets 75mg 30tabs 1 PO qd Qutaybeh 2005 - S. 06/27/ [facility] 2007 M.D. Prilosec 11/01/ Hx Capsules 20mg 60caps 1 PO qd Qutaybeh 2005 - S. 06/27/ [facility] 2007 M.D. Aspirin 11/01/ Hx Caplets 325mg 100cap 1 PO qd Qutaybeh Buffered 2005 - s S. 06/27/ [facility] M.D[facility] Toprol XL 11/01/ Hx Tablets 50mg 60tabs 1 po bid Qutaybeh 2005 - S. 06/27/ [facility] M.[facility] Lisinopril 11/01/ Hx Tablets 2.5mg 30tabs 1 po qd Qutaybeh 2005 - S. 11/15/ [facility]Beck[facility] Lipitor 11/01/ Hx Tablets 20mg 30tabs 1 po qd Qutaybeh 2005 - S. 11/01/ Maghaydah, 2005 Raffi Zocor 11/01/ Hx Tablets 20mg 30tabs one q hs Qutaybeh 2005 - S. 06/27/ Maghaydah, 2006 Raffi Glucophage 10/11/ Hx Tablets 500mg 1 po tid Qutaybeh 2005 - S. 06/27/ Maghaydah, 2007 Raffi Glipizide 10/11/ Hx Tablets 10mg 1 qd Qutaybeh 2005 - S. 06/27/ Maghaydah, 2006 Raffi Glucophage 10/03/ Hx Tablets 500mg 1 po bid Qutaybeh 2005 - S. 10/11/ Maghaydah, 2005 Raffi Keftab 10/03/ Hx Tablets 500mg 1 tablet Qutaybeh 2005 - po tid ac S. 10/03/ Ivonneydah, 2005 Raffi Prilosec 10/03/ Hx Capsules 40mg 30caps 1 po qd Qutaybeh 2005 - S. 10/02/ Maghaydah, 2005 Raffi Protonix 10/03/ Hx Tablet 40mg 90tabs 1 po qd Qutaybeh 2005 - S. 10/03/ [facility] Raffi Fluoxetine 10/03/ Hx Capsules 20mg 30caps 1 po qd Qutaybeh 2005 - S. 10/03/ Maghaydah, 2005 Raffi Glucotrol 10/03/ Hx Tablets 10mg 30tabs 1 po qd Qutaybeh 2005 - S. 10/03/ Maghaydah, 2005 Love.Shorty Albuterol 10/03/ Hx Aerosol 90mcg/Dose 2 puffs Qutaybeh Inhalation 2005 - qid prn S. 10/03/ Maghaydah, 2005 Raffi Glipizide 10/03/ Hx Tablets 10mg bid Qutaybeh 2005 - S. 10/11/ Maghaydah, 2005 Raffi Toprol XL 10/03/ Hx Tablets 25mg 30tabs 1 po qd Qutaybeh 2005 - S. 11/01/ Ivonneydivan, 2005 Raffi Plavix 00/00/ Hx Tablets 75mg 90tabs 1 po qd Qutaybeh 0000 - S. 08/21/ Giana 2010 M.D. Metformin HCL 00/00/ Hx Tablets 500mg 180tab 1 po qd Unknown 0000 - s 2009 Glipizide /00/ Hx Tablets ER 2.5mg 60tabs 1 po qd Unknown 0000 - 24HR 2010 Simvastatin /00/ Hx Tablets Dose 100tab 1 po qd Unknown 0000 - Unknown s 2009 Lisinopril 00/ Hx Tablets 10mg 90tabs 1 po qd Qutaybeh 0000 - S. 08/21/ Giana 2010 M.D. Isosorbide 00/ Hx Tablets ER 30mg 30tabs 1 po qd Unknown Mononitrate CR 0000 - 24HR 2009 Simvastatin /00/ Hx Tablets 80 30tabs 1 po qhs [facility], 0000 - Qutaybeh, 11/10/ [facility] 2009 Prilosec / Hx Capsules 20mg 30caps 1 po qd Unknown 0000 - DR 2009 Aspirin /00/ Hx 325mg 1 po qd Unknown - 2009 Metformin HCL 00/ Hx Tablets ER 750mg 1 po qd Unknown ER 0000 - 24HR 2010 Folic Acid / Hx Capsules 5mg 14caps 1 po qd Unknown - 2013 Fluoxetine /00/ Hx Capsules 30caps 1 every Unknown 0000 - day 2013 Metformin HCL /00/ Hx Tablets 500mg 180tab 1 po daily Unknown 0000 - s 2013 Levemir / Hx Solution 100Unit/ML 5units take 20-26 Unknown 0000 - units sq 11/27/ in hs 2013 (sets his own dosage) Hydrocodone-Ac 00/00/ Hx Tablets 5-325mg 1 by mouth Unknown etaminophen 0000 - every 4-6 05/23/ hours prn. 2017 rarely uses, 2 in a month Novolog 00/00/ Hx Solution 100Unit/ML as Unknown Flexpen 0000 - Pen-Inject directed 2016 Ibuprofen 00/00/ Hx Tablets 800mg by mouth Unknown 0000 - three 08/28/ times a 2016 day as needed Nicotine 00/00/ Hx Patches 21mg/24HR apply one Unknown Transdermal 0000 - 24HR patch System Step 1 09/30/ daily (not 2017 using regularly) Medications Administered in Office Medication Date Status Form Strength Qnty SIG Indications Ordering Provider Oliver 3 Administered Injection Nidia mg and 3mg Karen Khan M.D. Vital Signs Date Vital Result Comment 10/08/2017 Height 68 inches 5'8" Weight 172.00 lb BP Systolic 136 mmHg BP Diastolic 84 mmHg Body Temperature 96.4 F Pain Level 5 BMI (Body Mass Index) 26.1 kg/m2 10/01/2017 Height 68 inches 5'8" Weight 172.00 lb with shoes Heart Rate 62 /min BP Systolic Sitting 140 mmHg LA reg cuff BP Diastolic Sitting 78 mmHg LA reg cuff BMI (Body Mass Index) 26.1 kg/m2 09/12/2017 Height 68 inches 5'8" Weight 163.00 lb Heart Rate 70 /min BP Systolic 130 mmHg BP Diastolic 71 mmHg Body Temperature 97.1 F BMI (Body Mass Index) 24.8 kg/m2 08/29/2017 Height 68 inches 5'8" Weight 166.25 lb with shoes Heart Rate 74 /min BP Systolic Sitting 110 mmHg LA reg cuff BP Diastolic Sitting 78 mmHg LA reg cuff BMI (Body Mass Index) 25.3 kg/m2 Ejection Fraction 50%-55% echo 04/30/17 05/31/2017 Height 68 inches 5'8" Weight 164.00 lb with boots Heart Rate 112 /min BP Systolic Sitting 140 mmHg Rue reg cuff BP Diastolic Sitting 70 mmHg Rue reg cuff Respiratory Rate 17 /min BMI (Body Mass Index) 24.9 kg/m2 Ejection Fraction 50-55% date 04/30/17 echo 05/09/2017 Height 68 inches 5'8" Weight 167.75 lb with boots Heart Rate 90 /min BP Systolic Sitting 136 mmHg LA reg cuff BP Diastolic Sitting 76 mmHg LA reg cuff BMI (Body Mass Index) 25.5 kg/m2 Ejection Fraction 50% - 55% echo 04/30/17 04/04/2017 Height 68 inches 5'8" Weight 171.00 lb with boots Heart Rate 90 /min BP Systolic Sitting 136 mmHg LA reg cuff BP Diastolic Sitting 72 mmHg LA reg cuff BMI (Body Mass Index) 26.0 kg/m2 Ejection Fraction 55% - 60% echo 11/23/14 12/10/2015 Height 68 inches 5'8" Weight 169.00 lb Heart Rate 76 /min BP Systolic Sitting 158 mmHg BP Diastolic Sitting 90 mmHg Respiratory Rate 17 /min BMI (Body Mass Index) 25.7 kg/m2 10/20/2015 Height 68 inches 5'8" Weight 169.00 lb BMI (Body Mass Index) 25.7 kg/m2 08/11/2015 Height 68 inches 5'8" Weight 169.00 lb Pain Level 7 7-8 BMI (Body Mass Index) 25.7 kg/m2 07/30/2014 Height 68 inches 5'8" Weight 168.50 lb Heart Rate 94 /min BP Systolic 142 mmHg left, reg BP Diastolic 80 mmHg left, reg BMI (Body Mass Index) 25.6 kg/m2 03/12/2014 Height 68 inches 5'8" Weight 180.00 lb Heart Rate 91 /min BP Systolic 146 mmHg BP Diastolic 90 mmHg BMI (Body Mass Index) 27.4 kg/m2 02/12/2014 Height 68 inches 5'8" Weight 185.00 lb Heart Rate 90 /min BP Systolic 150 mmHg BP Diastolic 95 mmHg BMI (Body Mass Index) 28.1 kg/m2 11/27/2013 Height 68 inches 5'8" Weight 180.00 lb Heart Rate 72 /min BP Systolic 140 mmHg BP Diastolic 86 mmHg BMI (Body Mass Index) 27.4 kg/m2 05/28/2013 Height 69 inches 5'9" Weight 168.00 lb Heart Rate 81 /min BP Systolic Sitting 134 mmHg BP Diastolic Sitting 78 mmHg Respiratory Rate 24 /min BMI (Body Mass Index) 24.8 kg/m2 08/21/2011 Height 69 inches 5'9" Weight 179.00 lb Heart Rate 94 /min BP Systolic 138 mmHg BP Diastolic 78 mmHg BMI (Body Mass Index) 26.4 kg/m2 01/09/2011 Weight 191.00 lb Heart Rate 82 /min BP Systolic Sitting 140 mmHg BP Diastolic Sitting 86 mmHg 06/16/2010 Height 68 inches 5'8" Weight 181.00 lb Heart Rate 89 /min BP Systolic Sitting 136 mmHg BP Diastolic Sitting 66 mmHg BMI (Body Mass Index) 27.5 kg/m2 05/17/2010 Height 68 inches 5'8" Weight 176.00 lb Heart Rate 103 /min BP Systolic Sitting 144 mmHg L BP Diastolic Sitting 80 mmHg L BMI (Body Mass Index) 26.8 kg/m2 10/26/2009 Height 68 inches 5'8" Weight 189.00 lb Heart Rate 92 /min BP Systolic Sitting 140 mmHg BP Diastolic Sitting 85 mmHg BMI (Body Mass Index) 28.7 kg/m2 04/16/2009 Height 68 inches 5'8" Weight 195.00 lb Heart Rate 80 /min BP Systolic Sitting 140 mmHg BP Diastolic Sitting 84 mmHg BMI (Body Mass Index) 29.6 kg/m2 12/31/2008 Height 68 inches 5'8" Weight 210.00 lb Heart Rate 80 /min BP Systolic Sitting 130 mmHg L BP Diastolic Sitting 80 mmHg L BMI (Body Mass Index) 31.9 kg/m2 08/27/2008 Height 68 inches 5'8" Weight 203.00 lb Heart Rate 76 /min BP Systolic Sitting 140 mmHg BP Diastolic Sitting 82 mmHg Respiratory Rate 16 /min BMI (Body Mass Index) 30.9 kg/m2 06/03/2008 Height 68 inches 5'8" Weight 195.00 lb Heart Rate 94 /min BP Systolic Sitting 124 mmHg BP Diastolic Sitting 80 mmHg BMI (Body Mass Index) 29.6 kg/m2 12/19/2007 Height 68 inches 5'8" Weight 205.00 lb Heart Rate 73 /min BP Systolic Sitting 120 mmHg BP Diastolic Sitting 80 mmHg Respiratory Rate 14 /min BMI (Body Mass Index) 31.2 kg/m2 06/27/2007 Height 68 inches 5'8" Weight 194.50 lb Heart Rate 96 /min BP Systolic Sitting 142 mmHg BP Diastolic Sitting 90 mmHg BMI (Body Mass Index) 29.6 kg/m2 02/20/2007 Height 68 inches 5'8" Weight 205.00 lb Heart Rate 60 /min BP Systolic Sitting 124 mmHg R BP Diastolic Sitting 70 mmHg R BMI (Body Mass Index) 31.2 kg/m2 11/15/2006 Height 68 inches 5'8" Weight 203.00 lb Heart Rate 85 /min BP Systolic Sitting 140 mmHg L BP Diastolic Sitting 80 mmHg L BMI (Body Mass Index) 30.9 kg/m2 11/01/2006 Height 68 inches 5'8" Weight 200.00 lb Heart Rate 100 /min BP Systolic Sitting 144 mmHg L BP Diastolic Sitting 80 mmHg L BMI (Body Mass Index) 30.4 kg/m2 10/11/2006 Height 68 inches 5'8" Weight 203.00 lb Heart Rate 98 /min reg BP Systolic Sitting 154 mmHg BP Diastolic Sitting 84 mmHg BMI (Body Mass Index) 30.9 kg/m2 10/03/2006 Height 68 inches 5'8" Weight 203.00 lb Heart Rate 96 /min BP Systolic Sitting 140 mmHg left arm 150/90 BP Diastolic Sitting 90 mmHg left arm 150/90 BP Systolic Standing 138 mmHg BP Diastolic Standing 94 mmHg O2 % BldC Oximetry 96 % BMI (Body Mass Index) 30.9 kg/m2 Results Test Date Test Result H/L Range Note Laboratory test 05/23/2017 Point of Care 211 mg/dL High 74-106 1 finding Glucose Pre Cath Panel 05/21/2017 Partial Thrombo 31.8 seconds 26.0-36.3 Time PTT CBC Auto Diff 05/21/2017 White Blood Count 5.9 10^3/uL 3.5-10.8 Red Blood Count 5.06 10^6/uL 4.0-5.4 Hemoglobin 16.3 g/dL 14.0-18.0 Hematocrit 49 % 42-52 Mean Corpuscular Volume 96 fL High 80-94 Mean Corpuscular Hemoglobin 32 pg High 27-31 Mean Corpuscular HGB Conc 34 g/dL 31-36 Red Cell Distribution Width 14 % 10.5-15 Platelet Count 208 10^3/uL 150-450 Mean Platelet Volume 8 um3 7.4-10.4 Abs Neutrophils 2.4 10^3/uL 1.5-7.7 Abs Lymphocytes 2.4 10^3/uL 1.0-4.8 Abs Monocytes 0.7 10^3/uL 0-0.8 Abs Eosinophils 0.3 10^3/uL 0-0.6 Abs Basophils 0.1 10^3/uL 0-0.2 Abs Nucleated RBC 0 10^3/uL Granulocyte % 41.4 % 38-83 Lymphocyte % 41.3 % 25-47 Monocyte % 11.7 % High 1-9 Eosinophil % 4.5 % 0-6 Basophil % 1.1 % 0-2 Nucleated Red Blood Cells % 0.1 Inr/Protime 05/21/2017 Inr 0.78 Low 0.89-1.11 Basic Metabolic Panel 05/21/2017 Sodium 137 mmol/L 133-145 Potassium 4.5 mmol/L 3.5-5.0 Chloride 104 mmol/L 101-111 Co2 Carbon Dioxide 27 mmol/L 22-32 Anion Gap 6 mmol/L 2-11 Glucose 185 mg/dL High 70-100 Blood Urea Nitrogen 11 mg/dL 6-24 Creatinine 0.96 mg/dL 0.67-1.17 BUN/Creatinine Ratio 11.5 8-20 Calcium 9.2 mg/dL 8.6-10.3 Egfr Non- 81.9 >60 Egfr 105.4 >60 2 Order 11/23/2014 Echocardiogram <pending> Cath Panel 10/22/2006 PTT (Aptt) 23.9 20.4-29.5 3 CBC With Manual Diff 10/22/2006 White Blood Count 9.8 CUMM 4.8-10.8 Absolute Neutrophil Count 4.9 Atypical Lymph 4 % 0-6 Anisocytosis SLIGHT Hematocrit 45 % 42-52 Hemoglobin 15.3 g/dL 14.0-18.0 Eosenophil 4 % 0-6 Lymphocyte 39 % 5-47 Mean Corpuscular HGB Cone 34 g/dL 32-36 Mean Corpuscular Hemoglob 31 pg 27-31 Mean Corpuscular Volume 92 um3 80-94 Monocyte 3 % 0-13 Mean Platelet Volume 7.9 um3 7.4-10.4 Platelet Count 342 CUMM 150-450 Polysegmented Neutrophil 50 % 38-83 Red Cell Count 4.93 CUMM 4.6-6.2 Redcell Distribution WDTH 13 % 10.5-15 Basic Metabolic Panel 10/22/2006 One Over Creatinine 0.90 Anion Gap 7.0 mmol/L 2-11 4 BUN 19 mg/dL 6-24 Calcium 9.5 mg/dL 8.7-10.2 Chloride 102 mmol/L 101-111 Co2 (Carbon Dioxide) 28.0 mmol/L 22-32 Glucose 145 mg/dL High 70-105 Potassium 4.3 mmol/L 3.5-5.0 Sodium 137 mmol/L 135-145 BUN/Creatinine Ratio 17.3 8-20 Creatinine 1.1 mg/dL 0.5-1.4 Protime 10/22/2006 Inr 0.80 5 Protime 10.7 Low 10.9-13.1 1 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 . 5 MARILYN VALUE=2.00 ( OF 08/28/06) Recommended INR for Patients on Oral Anticoagulants Prophylaxis 2.0 - 3.0 Treatment of thrombosis 2.0 - 3.0 Prevention of embolism 2.0 - 3.0 Prevention of embolism from prosthetic heart valves 2.5 - 3.5 Procedures Date CPT Code Description Status 09/18/2017 94681 ECHO Transthoracic, Real-Time 2D With Doppler And Color Completed Flow 09/18/2017 79952 ECHO Transthoracic, Real-Time 2D With Doppler And Color Completed Flow 08/29/2017 43688 EKG Tracing & Interpretation Completed 05/23/2017 68542 Left Heart Cath. Incl S/I Coronaries, Angio S/I V Gram Completed If Done 05/02/2017 89409 Treadmill Interp/Report Only Completed 05/02/2017 67357 Stress Test Supervsn W/Out I/R Completed 04/30/2017 95855 ECHO Transthoracic, Real-Time 2D With Doppler And Color Completed Flow 04/04/2017 55516 EKG Tracing & Interpretation Completed 12/24/2014 61523 Stress Test Supervsn W/Out I/R Completed 12/24/2014 52285 Treadmill Interp/Report Only Completed 11/23/2014 15263 ECHO Transthoracic, Real-Time 2D With Doppler And Color Completed Flow 07/30/2014 73007 EKG Tracing & Interpretation Completed 11/27/2013 Inject/Drain Joint/Bursa Major Completed 11/27/2013 Inject/Drain Joint/Bursa Intermediate Completed 05/30/2013 61952 ECHO Transthoracic, Real-Time 2D With Doppler And Color Completed Flow 05/28/2013 91462 EKG Tracing & Interpretation Completed 08/21/2011 40865 EKG Tracing & Interpretation Completed 07/27/2011 01759 Stress Test Supervsn W/Out I/R Completed 07/27/2011 52578 Treadmill Interp/Report Only Completed 07/27/2011 86180 ECHO Transthoracic, Real-Time 2D With Doppler And Color Completed Flow 01/09/2011 94601 EKG Tracing & Interpretation Completed 06/16/2010 42875 EKG Tracing & Interpretation Completed 05/18/2010 60200 ECHO Transthoracic, Real-Time 2D With Doppler And Color Completed Flow 05/17/2010 31205 EKG Tracing & Interpretation Completed 05/13/2010 84441 EKG, Interpretation Only Completed 10/26/2009 04996 EKG Tracing & Interpretation Completed 04/08/2009 76326 ECHO Transthoracic, Real-Time 2D With Doppler And Color Completed Flow 03/30/2009 75197 ECHO Stress Test Incl Perf Contiuous ekg Monitoring Completed W/Phys Superv 03/30/2009 20226 ECHO Stress Test Incl Perf Contiuous ekg Monitoring Completed W/Phys Superv 08/27/2008 32782 EKG Tracing & Interpretation Completed 06/17/2008 55547 Color Doppler Completed 06/17/2008 30397 Color Doppler Completed 06/17/2008 83817 Pulse Doppler & Continuous Wave Completed 06/17/2008 39119 Pulse Doppler & Continuous Wave Completed 06/17/2008 31228 Pulse Doppler & Continuous Wave Completed 06/17/2008 02887 Echocardiogram Completed 06/17/2008 06290 Echocardiogram Completed 06/03/2008 71347 EKG Tracing & Interpretation Completed 06/03/2008 82618 EKG Tracing & Interpretation Completed 12/19/2007 08110 EKG Tracing & Interpretation Completed 12/19/2007 91643 EKG Tracing & Interpretation Completed 10/28/2007 29476 ECHO/Stress Completed 10/28/2007 72550 ECHO/Stress Completed 10/28/2007 97403 Stress Test Completed 10/28/2007 55850 Stress Test Completed 10/28/2007 31479 Stress Test Completed 10/23/2007 38577 Echocardiogram Completed 10/23/2007 38491 Echocardiogram Completed 10/23/2007 93744 Echocardiogram Completed 10/23/2007 84048 Pulse Doppler & Continuous Wave Completed 10/23/2007 67900 Pulse Doppler & Continuous Wave Completed 10/23/2007 90474 Color Doppler Completed 10/23/2007 92246 Color Doppler Completed 10/23/2007 05895 Color Doppler Completed 06/27/2007 21434 EKG Tracing & Interpretation Completed 06/27/2007 59893 EKG Tracing & Interpretation Completed 11/15/2006 30043 EKG Tracing & Interpretation Completed 10/24/2006 50671 EKG, Interpretation Only Completed 10/24/2006 09811 Left Heart Catheterization Completed 10/24/2006 23193 Left Heart Catheterization Completed 10/24/2006 19607 Inj Proc LFT Vent/LFT Atrl Angio Completed 10/24/2006 38200 Coronary Angiography Completed 10/24/2006 34618 Coronary Angiography Completed 10/24/2006 08680 S/I/R Inj Proc Vent And Or Atrial Completed 10/24/2006 31676 Selective Coronary Angioplasty Completed 10/24/2006 82410 Selective Coronary Angioplasty Completed 10/12/2006 38326 ECHO/Stress Completed 10/12/2006 69527 Stress Test Completed 10/12/2006 91943 Stress Test Completed 10/03/2006 75622 Color Doppler Completed 10/03/2006 82323 Color Doppler Completed 10/03/2006 78015 Pulse Doppler & Continuous Wave Completed 10/03/2006 28239 Echocardiogram Completed 10/03/2006 97888 Echocardiogram Completed 10/03/2006 93042 EKG Tracing & Interpretation Completed Encounters Type Date Location Provider CPT E/M Dx Office Visit 09/12/2017 [facility] Natalia Webb, 33471 M79.602 10:00a Of [facility] RPA-C Office Visit 08/29/2017 [facility] Giovanna S. 58622 I25.10 1:40p Raffi Faria R07.89 I25.9 I10 E78.4 F17.210 I42.9 Z95.1 R94.31 Office Visit 05/31/2017 3:40p [facility] Of Giovanna S. 77381 I25.10 Mason Faria M.D. I25.118 R06.02 R07.9 Office Visit 05/09/2017 11:00a [facility] JERONIMO Bob 76939 R07.9 R06.02 I25.118 R94.39 Office Visit 04/04/2017 4:40p [facility] Qutaybeh S. Giana, 58512 I25.9 M.DReagan I25.10 E78.4 I10 R07.9 R06.02 R94.31 Office Visit 12/10/2015 1:00p [facility] [place] [address] G56.21 Services Of Radiologist Chief Of Breast Imaging E11.42 M77.11 G56.01 I25.9 Office Visit 10/20/2015 1:45p [facility] Of Wes Epstein 78630 G56.21 Lorelei Nugent Office Visit 08/11/2015 2:00p [facility] Of Wes Epstein 09359 G56.21 Lorelei Nugent Office Visit 12/24/2014 9:30a [facility] Qutaybeh S. 17728 786.05 Raffi Faria 414.9 427.32 Office Visit 07/30/2014 9:00a [facility] Qutaybeh SReagan Faria, 78352 414.01 MIshan 786.50 794.31 401.1 412 272.4 Office Visit 03/12/2014 8:30a [facility] Nidia Khan 63238 726.10 Of Lorelei Nugent Office Visit 02/12/2014 9:30a [facility] Nidia Khan 37965 726.10 Of Lorelei Nugent Office Visit 11/27/2013 10:30a [facility] Nidia Khan 76373 726.10 Of Lorelei Nugent 719.41 Office Visit 05/28/2013 3:00p [facility] Qutaybeh S. Giana, 45947 414.01 MIshan 794.31 401.1 412 272.4 Office Visit 08/21/2011 2:00p [facility] Qutaybeh S. Ivonneydah, 56825 414.01 M.D. 794.31 401.1 412 Office Visit 07/27/2011 9:30a [facility] Qutaybeh S. Ivonneydah, 25478 794.31 M.D. 786.50 414.01 401.1 272.4 v45.82 Office Visit 01/09/2011 3:00p [facility] Qutaybeh S. Ivonneydah, 01709 414.01 M.D. 401.1 V45.82 272.4 412 Office Visit 06/16/2010 1:20p [facility] Qutaybeh S. Ivonneydah, 27236 414.01 M.D. 401.1 V45.82 272.4 250.82 412 Office Visit 05/17/2010 4:10p [facility] Qutaybeh S. Ivonneydah, 94679 414.01 M.D. 401.1 V45.82 272.4 250.82 412 794.31 Office Visit 10/26/2009 3:00p [facility] Qutayb S. Ivonneydah, 75786 414.01 M.D. 401.1 786.50 Office Visit 04/16/2009 3:10p [facility] Qutaybeh S. Ivonneydah, 13965 414.01 M.D. 401.1 786.50 Office Visit 12/31/2008 2:10p [facility] Qutaybeh S. Ivonneydah, 77675 414.01 M.D. V45.82 272.4 401.1 250.82 Office Visit 08/27/2008 2:20p [facility] Qutaybeh S. Ivonneydah, 94324 414.01 M.D. V45.82 272.4 401.1 250.82 786.50 Office Visit 06/03/2008 11:20a [facility] Qutaybeh S. haydah, 00280 414.01 M.D. 272.4 V45.82 250.82 401.1 794.31 Office Visit 12/19/2007 2:20p [facility] Qutaybeh S. haydah, 64429 414.01 M.D. 272.4 V45.82 250.82 401.1 794.31 Office Visit 06/27/2007 3:00p [facility] Colemantaybhelga S. Giana, 38450 414.01 M.D. 401.0 272.4 250.82 Office Visit 02/20/2007 9:40a [facility] Colemantaybhelga S. Giana, 18190 414.01 M.D. 401.1 272.4 250.82 Office Visit 11/15/2006 11:10a [facility] Colemantaybhelga S. Giana, 78303 414.01 M.D. 401.0 272.4 250.82 Office Visit 11/01/2006 11:10a [facility] Colemantafeliciano S. Giana, 44861 414.01 M.D. 401.0 786.50 Office Visit 10/11/2006 10:10a [facility] Colemantafeliciano S. Giana, 99297 786.50 M.D. 401.0 272.4 Office Visit 10/03/2006 2:40p [facility] Colemantafeliciano S. Giana, 54059 786.50 M.D. 794.31 401.0 Plan of Care Future Appointment(s):11/19/2017 10:00 am - Nidia Khan M.D. at [facility]10/08/2017 - Nidia Khan M.D.G56.22 Lesion of ulnar nerve , left upper limbFollow up:Follow up: 6 weeks
--- NOTE | 2017-11-05 15:17 | RAD ---
INDICATION: Left great toe injury. TECHNIQUE: 3 views of the left great toe were obtained. FINDINGS: There is soft tissue swelling around the great toe. There is a transverse minimally impacted fracture of the distal phalanx of the great toe. IMPRESSION: TRANSVERSE MINIMALLY IMPACTED FRACTURE OF THE DISTAL PHALANX.
--- NOTE | 2017-11-05 16:11 | ED ---
Lower Extremity - HPI Summary HPI Summary: Patient presents to the ED with CC of left toe pain and redness after sustaining an injury after a large steel beam fell atop the great toe 2 days ago. patient is a diabetic and has numbness and tingling at baseline. He is concerned over infection after he noticed today the toe became erythematous and warm. Denies other symptoms. He has not taken anything for relief. - History of Current Complaint Chief Complaint: EDExtremityLower Stated Complaint: LEFT TOE INJURY Time Seen by Provider: 11/05/17 14:31 Hx Obtained From: Patient Mechanism Of Injury: Blunt Trauma Onset of Pain: Immediate Onset/Duration: Days Severity Initially: Moderate Severity Currently: Moderate Pain Intensity: 0 Pain Scale Used: 0-10 Numeric Timing: Constant Location: Is Discrete @ - left great toe Associated Signs And Symptoms: Positive: Swelling, Redness Aggravating Factor(s): Standing, Ambulation Alleviating Factor(s): Rest Able to Bear Weight: No - Risk Factors Gout Risk Factors: Age Over 40, Male, Diabetes, Hypertension, Alcohol Abuse, Peripherial Vascular Disease DVT Risk Factors: Smoking - Allergies/Home Medications Allergies/Adverse Reactions: Allergies Allergy/AdvReac Type Severity Reaction Status Date / Time No Known Allergies Allergy Verified 05/01/17 15:47 PMH/Surg Hx/FS Hx/Imm Hx Previously Healthy: Yes Endocrine/Hematology History: Reports: Hx Diabetes Denies: Hx Anticoagulant Therapy Cardiovascular History: Reports: Hx Angina, Hx Coronary Artery Disease, Hx Hypercholesterolemia, Hx Hypertension, Hx Myocardial Infarction Denies: Hx Pacemaker/ICD, Hx Valvular Heart Disease Respiratory History: Reports: Hx Chronic Obstructive Pulmonary Disease (COPD) Denies: Hx Asthma History: Reports: Hx Benign Prostatic Hyperplasia - recent catheter, Other Problems/Disorders Denies: Hx Renal Disease Musculoskeletal History: Reports: Hx Back Problems - pain clinic pt Sensory History: Denies: Hx Contacts or Glasses, Hx Hearing Aid Opthamlomology History: Denies: Hx Contacts or Glasses Psychiatric History: Denies: Hx Panic Disorder - Surgical History Surgery Procedure, Year, and Place: CARDIAC STENTS - ENDEAVOR DRUG ELUTING SAFE FOR UP TO 3T/CYPHER OF FOR UP TO 3T-PER MRI SAFETY-REPORTS SCANNED INTO OTHER FACILITY REPORTS. RADIAL NERVE - Lt ARM - X 2 CLEANED UP SCAR TISSUE - Immunization History Hx Pertussis Vaccination: No Immunizations Up to Date: Unable to Obtain/Confirm Infectious Disease History: No Infectious Disease History: Denies: Traveled Outside the [place] in Last 30 Days - Family History Known Family History: Negative: Cardiac Disease - No FMHx of CAD - Social History Occupation: Employed Full-time Lives: With Family Alcohol Use: Daily Alcohol Amount: 10+ drinks daily Hx Substance Use: No Substance Use Type: Reports: None Hx Tobacco Use: Yes Smoking Status (MU): Heavy Every Day Tobacco Smoker Type: Cigarettes Amount Used/How Often: 1-1.5 pack/day Have You Smoked in the Last Year: Yes Review of Systems Negative: Fever, Chills, Fatigue Eyes: Negative Cardiovascular: Negative Genitourinary: Negative Positive: no symptoms reported, see HPI Positive: Arthralgia, Myalgia Positive: Other - erythematous warm great toe Neurological: Negative All Other Systems Reviewed And Are Negative: Yes Physical Exam Triage Information Reviewed: Yes Vital Signs On Initial Exam: Initial Vitals Temp Pulse Resp BP Pulse Ox 98.5 F 100 17 143/74 98 11/05/17 14:22 11/05/17 14:22 11/05/17 14:22 11/05/17 14:22 11/05/17 14:22 Vital Signs Reviewed: Yes Appearance: Positive: Well-Appearing, Well-Nourished Skin: Positive: Warm, Skin Color Reflects Adequate Perfusion, Other - great toe with erythema and warmth Head/Face: Positive: Normal Head/Face Inspection Eyes: Positive: EOMI, ERIC, Conjunctiva Clear Neck: Positive: Supple, No Lymphadenopathy Respiratory/Lung Sounds: Positive: Clear to Auscultation, Breath Sounds Present Cardiovascular: Positive: RRR, Pulses are Symmetrical in both Upper and Lower Extremities Musculoskeletal: Positive: Pain @ - great left toe with erythema - full ROM Neurological: Positive: Speech Normal Psychiatric: Positive: Normal, Affect/Mood Appropriate - [place] Coma Scale Coma Scale Total: 15 Diagnostics - Vital Signs Vital Signs Temp Pulse Resp BP Pulse Ox 11/05/17 16:00 98.5 F 100 17 143/74 98 11/05/17 14:22 98.5 F 100 17 143/74 98 - Laboratory Lab Statement: Any lab studies that have been ordered have been reviewed, and results considered in the medical decision making process. Lower Extremity Course/Dx - Course Course Of Treatment: xray obtained which shows: IMPRESSION: TRANSVERSE MINIMALLY IMPACTED FRACTURE OF THE DISTAL PHALANX. Post-op shoe and amarjit taped. Encouraged ibuprofen and given keflex given history of diabetes with erythema and warmth. While awaiting xray results, the toe was soaked in warm soapy water. - Diagnoses Differential Diagnosis/HQI/PQRI: Positive: Fracture (Closed), Gout Provider Diagnoses: Fracture of distal phalanx of great toe Discharge - Discharge Plan Condition: Stable Disposition: HOME Patient Education Materials: Toe Fracture (ED) Referrals: Yaritza Skinner NP [Primary Care Provider] - Additional Instructions: Ibuprofen 800mg three times daily for 5 days Keflex four times daily for 5 days Keep the post op shoe on as long as possible (up to 3 weeks) Keep the toes amarjit taped for 6 weeks If you develop worsening pain or redness or streaking of red up the foot - you need to return to the ED
== END 2017-11-05 16:00 | disposition home or self-care (01) ==
LOC: ED 14:18
DX: S92.422A Displaced fracture of distal phalanx of left great toe, initial encounter for closed fracture (principal); W20.8XXA Other cause of strike by thrown, projected or falling object, initial encounter; Y92.9 Unspecified place or not applicable; E11.9 Type 2 diabetes mellitus without complications; I25.10 Atherosclerotic heart disease of native coronary artery without angina pectoris; E78.00 Pure hypercholesterolemia, unspecified; I10 Essential (primary) hypertension; I25.2 Old myocardial infarction; N40.0 Benign prostatic hyperplasia without lower urinary tract symptoms; J44.9 Chronic obstructive pulmonary disease, unspecified; F17.210 Nicotine dependence, cigarettes, uncomplicated
CPT/HCPCS: 99282

== ENCOUNTER 2017-11-28 17:35 | Emergency (ER) | payer OTHER ==
--- OUTSIDE RECORDS SUMMARY | 2017-11-28 18:28 | XMS REPORT ---
:1965 External Reference #:[id number] Author Organization [facility] Address [address] [place] [address] Phone [phone] Care Team Providers Name Role Phone Louie Walker M.D. Primary Care Physician Unavailable Payers Type Date Identification Numbers Payment Provider Subscriber Commercial Policy Number: [id number] [facility] Cesar Loomis PayID: [id number] [place] [address] Problems Date Description Provider Status Onset: 02/08/2012 Alcohol dependence FITO BrownP-Alpa Active Onset: 02/08/2012 Tobacco user BRAD Brown-Alpa Active Onset: 02/08/2012 Type 2 diabetes mellitus FITO BrownP-Alpa Active Onset: 02/08/2012 Pure hypercholesterolemia Danielle Morse [employer] Active Onset: 02/08/2012 Depressive disorder FITO BrownP-Alpa Active Onset: 02/08/2012 Chronic ischemic heart disease Danielle Morse [employer]-Alpa Active Onset: 02/08/2012 Essential hypertension Danielle Morse [employer] Active Onset: 12/07/2014 Carotid bruit FITO BrownP-C [...] Form Strength Qnty SIG Indications Ordering Provider Ibuprofen 10/12 Active Tablets 800mg 60tabs take one M54.13 Angelwnti R. tablet Storm, by mouth [employer] every 8 hours with food as needed for pain Oxycodone-Acetam 09/10 Active Tablets 5-325mg 14tabs 1 by M54.32 Danielle Dockery ino mouth Storm, every 4 [employer] hours if needed for severe pain Wellbutrin SR 06/22 Active Tablets 150mg 60tabs 1 by Z72.0 Angelwnti R. ER 12HR mouth Storm, twice [employer] daily Novolog Flexpen 02/23 Active Solution 100Unit/ML 15ml inject 5 E11.65 Angelwnti R. Pen-Injec units , t under [employer] the skin three times a day before meals as directed Freestyle Lite 01/22 Active Strips 200unit use for E13.9 Shawnti R. s glucose Storm, monitori [employer] ng 5-6 times daily Lantus Solostar 01/05 Active Solution 100Unit/ML 30ml inject E11.40 Agnelwnti R. Pen-Injec 40 units Storm, t once [employer] daily for diabetes Novofine 01/05 Active Misc 30G X 8 mm 100unit use E11.40 Angelwnti R. s daily Storm, with [employer] lantus pen to administ er insulin daily Gabapentin 10/24 Active Capsules 300mg 60caps Take Two M54.32 Mynor Capsules [place] By Mouth III, [employer] At Bedtime Marysol Contour 11/19 Active Kit W/Device 1units use to E11.65 Shawnti R. Blood Glucose /2014 test Storm, Monitoring blood [employer] System sugar daily for diabetes Marysol Contour 11/19 Active Strips 100unit test 2 E11.65 Shawnti R. Blood Glucose /2014 s times Storm, Test Strips per day [employer] Lancets Ultra 11/19 Active Misc Thin 30G 100unit use to E11.65 Shawnti R. Thin 30G /2014 s test Storm, blood [employer] sugars twice daily and as needed Freestyle 04/21 Active Misc 100unit use to 250.00 Shawnti R. Lancets /2012 s test Storm, blood [employer] sugars 4-5 times daily as needed Freestyle Test 04/18 Active Strips 1Bottle use to E11.9 Shawnti R. /2009 check Storm, blood [employer] sugars four times daily Lancets--One 04/18 Active Misc 100unit use 250.00 Shawnti R. Touch Ultra Soft /2009 s daily as Storm, directed [employer] to test blood sugar Tamsulosin HCL Active Capsules 0.4mg 2 tabs Ese, /0000 daily MD Titus Metoprolol Active Tablets 25mg Unknown Succinate ER /0000 ER 24HR Aspir-81 Active Tablets 325mg 1 by Unknown /0000 DR mouth every day Cyclobenzaprine 10/12 Hx Tablets 10mg 30tabs take 11/13 M54.13 Shawnti R. HCL /2016 or 1 Storm, - tablet [employer] 11/23 by mouth /2017 three times a day for muscle spasm will cause tirednes s Combivent 08/20 Hx Aerosol 20-100mcg/A 12gm 2 puff J44.9 Ramón Respimat /2016 ct twice a Hestorm, - day 10/12 Proair HFA 08/20 Hx Aerosol 108(90Base) 8.500gm 1-4 J44.9 Ramón /2016 mcg/Act puffs He[place], - every 6 10/12 hours needed Spacer, 08/20 Hx 1units 1 use to J44.9 Ramón Pediatric /2017 inhale [place], - medicati MD 10/12 ons Combivent 08/18 Hx Aerosol 18-103mcg/A 1units Inhale 2 ct puffs 2 - (two) 10/12 times a day Nicoderm CQ 06/22 Hx Patches 21mg/24HR 14units apply Z72.0 Shawnti R. 24HR one Storm, - patch to [facility] 10/12 skin, replace daily for up to 14 days then reduce to 14mg patch Nicoderm CQ 06/22 Hx Patches 14mg/24HR 28units apply Z72.0 Shawnti R. 24HR one Storm, - patch to [facility] 10/12 skin, replace daily for up to 28 days then go to 7mg Nicoderm CQ 06/22 Hx Patches 7mg/24HR 14units apply 1 Z72.[address] to [facility], - skin [facility]- 10/12 for 14 days Nicotrol 06/01 Hx [...] Hx Kit 4% 1units apply to 4.32 [facility] Dressing painful Storm, - area [facility]- 04/27 once daily, do not leave on for more than 12 hours Ibuprofen 01/05 Hx Tablets 800mg 90tabs take one M54.32 Shawnti R. /2016 tablet Storm, - by mouth [facility] 08/20 every hours with food as needed for pain Lidocaine 01/05 Hx Patches 5% 30units apply M54.32 Shawnti R. one Storm, - patch to [employer] 03/19 low back every night, remove in the morning Prednisone 12/22 Hx Tablets 20mg 13tabs 3 by M54.17 Danielle RReagan mouth Storm, - every [employer] 01/01 day x 2days, 2 by mouth every day x 2 days, 1 by mouth every day x 2 days, 1/2 by mouth every day x 2 days Thiamine HCL 12/22 Hx Tablets 100mg 90tabs 1 by M54.17 Danielle RReagan mouth Storm, - every [employer] Folic + B12 12/22 Hx Tablets 800-1000mcg 90tabs 1 po M54.17 Danielle RReagan daily Storm, - [employer] 04/27 Metaxalone 07/07 Hx Tablets 800mg 30tabs 1 tab by M54.32 Mynor mouth [place] - three III, [employer] 10/24 times day for muscle spasm Guaifenesin 03/07 Hx Syrup 100mg/5ML 300unit 2 s teaspoon Suyapa - every III, [employer] 10/24 4- hours for cough and chest congesti on Augmentin 02/01 Hx Tablets 875-125mg 20tabs 1 take J20.9 by mouth Heetderpatrick, - tablet 10/24 every hours for 10 days for infectio n Cortisporin 12/30 Hx Solution 3.5-18199-6 60units 4 left H60.392 ear Heetjeffry, - christy VALIENTE 10/24 times day Clotrimazole 12/30 Hx Solution 1% 90units 3 drops B37.84 left ear Heetjeffry, - three 10/24 times day Glipizide 10/28 Hx Tablets 5mg 60tabs 1 po bid E11.65 Danielle Dockery for Storm, - diabetes [employer] 10/24 , take with food Bupropion HCL ER 10/11 Hx Tablets 150mg 90tabs take 1 F33.1 Danielle Dockery (XL) ER 24HR tablet Storm, - by mouth [employer] 02/01 morning Metformin HCL 10/11 Hx Tablets 500mg 60tabs take one E11.65 Danielle Dockery /2014 tablet Storm, - by mouth [employer] 10/28 twice a day with food Hydrocodone-Acet 07/29 Hx Tablets 5-325mg 30tabs 1 or 2 M25.511 Danielle Dockery aminophen /2014 po QHS Storm, - prn pain [employer] 10/11 Omeprazole 07/29 Hx Capsules 40mg 90caps 1 by K21.0 Danielle Dockery /2014 DR janett Morse, - every [employer] Amoxicillin/Clav 01/07 Hx Tablets 875-125mg 20tabs 1 by 486 Danielle Dockery ulanatchristina /2014 mouth Storm, Potassium - twice a [employer] 01/17 day for 10 days for infectio n Ventolin HFA 01/07 Hx Aerosol 108(90Base) 8gm inhale Mynor /2014 mcg/Act two Suyapa - puffs by III, [employer] 04/27 mouth every 4-6 hours as needed for wheezing /SOB Viagra 11/19 Hx Tablets 100mg 2tabs take N53.8 Danielle Dockery one-half Storm, - to one [employer] 10/11 tablet /2014 before intercou rse Levemir 11/19 Hx Solution 100Unit/ML 15ml inject E11.65 Danielle Dockery Flextouch Pen-Injec 10 units , - t before [employer] 10/11 bed, increase dose by 5 units every 3 days until fasting glucose is under 200 Novofine 11/19 Hx Misc 30G X 8 mm 50units use E11.65 Danielle Dockery /2014 daily Storm, - with [employer] 10/28 levimir flexpen Levitra 10/16 Hx Tablets 10mg 10tabs take 1 608.89 Danielle Dockery tablet Storm, - by mouth [employer] 10/16 as needed prior to intercou rse. Fluoxetine HCL 10/15 Hx Capsules 20mg 30caps 1 by F33.1 Danielle Dockery mouth Storm, - every [employer] Metformin HCL 10/15 Hx Tablets 500mg 60tabs take one 250.02 Shawnti R. tablet Storm, - by mouth [facility]- 11/19 twice a day with food Viagra 10/15 Hx Tablets 50mg 10tabs use 11/13 608.89 Shawnti R. to 1 tab Storm, - 1/2hr [facility]- 10/16 prior to activity Lidocaine 07/02 Hx Patches 5% 60units apply 726.19 Shawnti R. patch to Storm, - the [facility] 10/11 painful area before, remove in the morning, do not leave on for more than 12 hours. can apply up to 2 Voltaren 09/25 Hx Gel 1% 300gm apply Shawnti R. pea Storm, - sized [facility]- 10/11 amount of gel to the shoulder qid prn pain Tizanidine HCL 08/14 Hx Tablets 4mg 30tabs take one 728.85 Shawnti R. by mouth Storm, - before [facility] 10/11 bed if needed for pain and muscle spasm Naltrexone HCL 06/18 Hx Tablets 50mg 30tabs 1 po 303.90 Shawnti R. /2012 daily Storm, - [facility]- 07/02 Campral 06/16 Hx Tablets 333mg 90tabs 1 po tid 303.[address] Morse, - [facility]- 06/18 Nicoderm CQ 06/16 Hx Patches 21mg/24HR 14units apply 1 305.1 Shawnti R. 24HR patch to Storm, - skin, [facility]- 07/02 change /2013 daily for 14 days.the n go to 14mg dose Nicoderm CQ 06/16 Hx Patches 14mg/24HR 14units apply 305.1 Shawnti R. /2012 24HR one , - patch to [facility]- 07/02 skin, replace daily for 14 days, start after 21mg patches complete d. Nicoderm CQ 06/16 Hx Patches 7mg/24HR 14units apply 305.1 Shawnti R. /2012 24HR one Storm, - patch to [facility]- 07/02 skin, change daily for three weeks, start after 14mg dose is complete Fluoxetine HCL 06/16 Hx Capsules 40mg 30caps take 1 311 Shawnti R. capsule Brody, - once [employer] 07/02 daily for depressi on Fluoxetine HCL 05/08 Hx Capsules 20mg 90caps 1 po qd 311 Shawnti R. for Storm, - depressi [employer] 06/16 on Metformin HCL ER 05/08 Hx Tablets 500mg 30tabs take one 250.02 Shawnti R. ER 24HR tablet Brody, - by mouth [employer] 07/02 every day for diabetes Levemir Flexpen 04/21 Hx Solution 100Unit/ML 30ml inject 250.00 Shawnti R. 10 units , - daily [employer] 07/02 fatty tissue, increase dose by 2 units every other day until morning blood sugars are under 150 Flex Pen [place] 04/21 Hx 30units use with 250.00 Shawnti R. levmir Brody, - daily to [employer] 07/02 inject insulin Freestyle Test 04/21 Hx Strips 200unit use to E13.9 Haylie Strips s nadia Pritchard, - blood M.Shorty, R.D. 01/22 4-5 times daily Thiamine HCL 04/14 Hx Tablets 100mg 90tabs 1 po qd 303.90 Shawnti R. , - [employer] 07/02 Folic Acid 04/14 Hx Tablets 1mg 90tabs 1 po qd 303.90 Shawnti R. , - [employer] 07/02 Naproxen Ec 04/14 Hx Tablets 500mg 20tabs 1 po bid 451.[address] aleyda Morse, - needed [employer] 07/02 phlebiti sm, take with food Gentamicin 09/09 Hx Ointment 0.1% 1tube 1 cm 372.00 Shawnti R. colby Morse, - qid left [employer] 05/08 eye for 5 days or until [...] mg mouth as Storm, - X directed [employer] 05/08 Antabuse 12/01 Hx Tablets 500mg 30tabs 1 po qam 303.90 Shawnti R. Storm, - [employer] 05/08 Nicoderm CQ 12/01 Hx Patches 21mg/24HR 14units apply 1 305.1 Shawnti R. 24HR patch to Storm, - skin, [employer] 05/08 change daily for 14 days.the n go to 14mg dose Nicoderm CQ 12/01 Hx Patches 14mg/24HR 14units apply 305.1 Shawnti R. 24HR one Storm, - patch to [employer] 05/08 skin, replace daily for 14 days, start after 21mg patches complete d. Nicoderm CQ 12/01 Hx Patches 7mg/24HR 14units apply 305.1 Shawnti R. 24HR one , - patch to [employer] 05/08 skin, change daily for two weeks, start after 14mg dose is complete Prozac 11/15 Hx Capsules 20mg 90caps 1 po qd 311 Shawnti R. /2010 for Storm, - depressi [employer] 05/08 on Aspirin 06/20 Hx Tablets 325mg 1 daily 414.9 Angelwnti R. /2009 for Storm, - heart [employer] 05/08 Carvedilol 06/20 Hx Tablets 3.125mg 1 po bid 414.9 Shawnti R. /2009 for Storm, - heart [employer] 05/08 Plavix 06/20 Hx Tablets 75mg 1 po qd 414.9 Angelwnti R. for Storm, - heart [employer] 05/08 Simvastatin 06/20 Hx Tablets 80mg 1 po qhs 414.9 Shawnti R. /2009 for Storm, - choleste [employer] 05/08 rol Metformin HCL ER 05/23 Hx Tablets 750mg 30tabs 1 po 250.00 Shawnti R. ER 24HR daily Storm, - for [employer] 05/08 Diabetes Glipizide ER 05/23 Hx Tablets 2.5mg 30tabs 1 po 250.00 Shawnti R. ER 24HR daily Storm, - for [employer] 05/08 diabetes Metformin HCL 05/02 Hx Tablets 500mg 30tabs 1 po qam 250.00 Shawnti R. ER 24HR for Storm, - diabetes [employer] 05/23 Omeprazole 04/18 Hx Tablets 20mg 30tabs on po 535.[address] seth-ac Brody, - for [employer] 06/20 stomach acid Freestyle 04/18 Hx Glucometer 1Meter use to 250.00 Shawnti R. Monitor /2009 test Storm, - blood [employer] 05/08 sugars Contour Blood 04/18 Hx Kit w/Device 1meter use as 250.00 Shawnti R. Glucose System /2009 directed Storm, - to test [employer] 04/18 blood sugar Zithromax Z-Rambo 11/30 Hx Tablets 250mg 6tabs 2 po on 466.0 Mariajose A. /2009 day 1, 1 [place], - po on F.N.P.C. 04/18 days 2- Augmentin 05/13 Hx Tablets 875mg 20tabs one po 522.5 Shawnti R. /2008 bid for Storm, - dental [employer] 05/23 infectio n Naprosyn Ec 05/13 Hx Tablets 500mg 60tabs 1 po bid 522.5 Shawnti R. /2008 with Storm, - food for [employer] 05/02 pain, /2009 stop taking if stomach pain develops Vicodin 05/13 Hx Tablets 5-500mg twenty 1-2 tabs 522.5 Shawnti R. /2008 po q6hr Storm, - prn pain [employer] 05/28 Chlorhexidine 05/13 Hx Solution 0.12% 1Bottle rinse 522.5 Shawnti R. Gluconate /2008 and spit Brody, - 10ml [employer] 04/18 twice daily for mouth bacteria Nicoderm [...] 250.00 Mariajose A. 05/02/2010 once daily Jennifer Portre.N.P.CReagan Glucometer 12/15/2002 - Hx Ascensia 60units check [...] CPT Code Status Date Vaccine Lot # [id number] Given 08/20/2017 Pneumovax 23 (PPSV23) 65+ years or high risk 2 to [id number] 62 year old 20814 Given 08/20/2017 Influenza Virus Vaccine, Quadrivalent, 3 Yr > [id number] Quad, Preserv Free 89115 Given 04/19/2017 Tdap (Adacel) [id number] 90228 Given 12/19/2004 Tetanus 54714 Given 12/15/2004 Tetanus 65258 Refused 12/30/2015 Influenza Virus Vaccine, Quadrivalent, 3 Yr > Quad, Preserv Free Vital Signs Date Vital Result Comment 11/28/2017 Weight 176.00 lb Weight in kg's 79.834 BP Systolic 120 mmHg BP Diastolic 68 mmHg Heart Rate 80 /min Body Temperature 97.8 F Respiratory Rate 16 /min 11/23/2017 Weight 175.00 lb Weight in kg's 79.380 BP Systolic 122 mmHg BP Diastolic 60 mmHg Heart Rate 84 /min Body Temperature 99.4 F Height 69 inches 5'9" BMI (Body Mass Index) 25.8 kg/m2 10/12/2017 BP Systolic 118 mmHg BP Diastolic [...] 5-6 Urine Blood 50 High Neg Specific [place] 1.015 1.01-1.02 Urine Ketones 1+ High Neg [...] Color Yellow Urine Appearance Clear Urine Specific [place] 1.021 1.010-1.030 Urine pH 6.0 5-9 Urine [...] Color Yellow Urine Appearance Clear Urine Specific [place] 1.034 High 1.010-1.030 Urine Esterase Negative Negative [...] 7.9 % High Less Than 6.0 40 CBC With Electronic Diff 05/13/2010 White Blood [...] Abs Basophils 0 0-0.2 Comp Metabolic Panel 05/13/2010 Sodium 135 mmol/L [...] > 60 eGFR 148.8 > 60 45 PT W/Inr 05/13/2010 Inr 0.82 Low 0.97-1.03 46 Protime 9.6 SEC Low 11.5-12.2 47 Laboratory test finding 05/13/2010 PTT (Aptt) 30.4 25.15-38.53 48 Laboratory test finding 05/13/2010 Troponin-I (TnI) 0.13 NG/ML High 49 Comp Metabolic Panel 04/18/2010 Sodium 135 mmol/L [...] Absolute Neutrophil Count 5.1 RBC Morphology NORMAL Laboratory test finding 09/09/2008 Hemoglobin A1c 7.5 % High <6.0 59 Lipid Profile (Trig/Chol/HDL) 09/09/2008 Triglyceride 74 mg/dL 40-200 Cholesterol 156 mg/dL Less Than 200 60 High Density Lipoprotein 37 mg/dL Low 40-60 61 Cholesterol/HDL Ratio 4.22 AVERAGE 1-4.97 Low Density Lipoprotein 104 mg/dL High Less Than 100 62 CBC With Electronic Diff 09/09/2008 White Blood [...] mmol/L 22-32 Anion Gap 3.0 mmol/L 2-11 63 Glucose 123 mg/dL High 70-100 64 BUN 14 mg/dL 6-24 Creatinine 0.90 mg/dL 0.50-1.40 One Over Creatinine 1.10 BUN/Creatinine Ratio 15.6 8-20 Calcium 9.1 mg/dL 8.1-9.9 65 Total Protein 6.4 GM/DL 6.2-8.1 Albumin 3.6 GM/DL 3.6-5.4 Globulin 2.8 GM/DL 2-4 Albumin/Globulin Ratio 1.3 1-3 Bilirubin Total 0.5 mg/dL 0.4-1.5 Alkaline Phosphatase 77 U/L 39-117 Alt (SGPT) 23 U/L 17-63 Ast (Sgot) 22 U/L 12-42 Urine DIP 06/12/2008 Leukocytes NEG Neg Urine Nitrites NEG Neg Urine pH 5 5-6 Total Protein, Urine NEG Neg Urine Glucose 500 High Norm Urine Ketones NEG Neg Urobilinogen NORM Norm Urine Bilirubin NEG Neg Urine Blood NEG Neg Specific [place] N/A Low 1.01-1.02 CBC With Electronic Diff [...] Hemoglobin A1c 7.9 % High <6.0 70 Lipid Profile 12/24/2007 Cholesterol/HDL Ratio 4.47 AVERAGE 1-4.97 (Trig/Chol/HDL) Cholesterol 161 mg/dL Less Than 200 71 Triglyceride 120 mg/dL 40-200 High Density Lipoprotein 36 mg/dL Low 40-60 72 Low Density Lipoprotein 101 mg/dL High Less Than 100 73 Microalbumin Random 12/24/2007 Jerry Alb/Creatinine Ratio 6.1 UG/MG Less Than 30 74 Urine Urine Creatinine 97.8 mg/dL Microalbumin (MG/L) 6.0 mg/L Comp Metabolic Panel 10/10/2007 One Over Creatinine [...] 05/04/2004 Glucose By Moniter 129 High 78-110 Comp Metabolic Panel 04/05/2004 Anion Gap 7.0 mmol/L 2-11 95 Albumin/Globulin Ratio 1.5 1-3 Albumin 3.9 GM/DL [...] 6.5 GM/DL 6.2-8.1 BUN/Creatinine Ratio 9.0 8-20 Lipid Profile (Trig/Chol/HDL) 04/05/2004 Cholesterol 236 mg/dL High Less Than 200 96 Triglyceride 178 mg/dL 40-200 High Density Lipoprotein 39 mg/dL Low 40-60 97 Low Density Lipoprotein 161 mg/dL High Less Than 100 98 Cholesterol/HDL Ratio 6.05 AVERAGE High 1-4.97 CBC With Electronic Diff 04/05/2004 Platelet Count [...] 4.6-6.2 Redcell Distribution WDTH 13 % 10.5-15 Laboratory test finding 04/05/2004 Hemoglobin A1c 11.3 % High <6.0 99 Laboratory test finding 03/18/2004 Glucose By Moniter [...] Glucose By Moniter 286 High 78-110 1 Ballast Inspector: [id number] SEE RESULT BELOW Name: MAKENZIEPRAVINCESAR : [address]: Haylie Pritchard MD Acct: [id number] Unit: [id number] AGE: 51 Location: [facility] Re04/27/17 SEX: M Status: REG REF SPEC: [id number] ROEL: 04/27/17-[address] [facility] [address]: Haylie Pritchard MD REQ: [id number] RECD: 04/27/17 STATUS: COMP _ SOURCE: URINE [facility]: ORDERED: Urine Culture COMMENTS: [id number] Urine Source: Random Procedure Result Reported Site Urine Culture Final 04/29/17- 08 ML No Growth (<1,000 CFU/mL) * ML - [facility] ([facility]) . END OF REPORT * ML=Testing performed at Main Lab DEPARTMENT OF PATHOLOGY, [address] [place] [address] Esa Daniel M.D. Director [facility] # [id number] Serum levels of PSA measured using the Rich Femi DXI Hybritech immunoassay should not be interpreted [...] and in selective patients <6.0%.Please refer to [place] [employer] Diabetic care guidelines for further [...] and in selective patients <6.0%.Please refer to [place] [employer] Diabetic care guidelines for further information. 10 Therapeutic target for the treatment of diabetes Mellitus patients is <7% HBA1C, and in selective patients <6.0%.Please refer to [place] [employer] Diabetic care guidelines for further [...] dialysis) 16 Verbal to DANIELLE MORSE by [id number] at 2055 on 04/14/13. Results read back accurately. Verbal to answering service at 2052 on 04/14/13 by [id number]. Doctor to return call. 17 Because ethnic [...] and in selective patients <6.0%.Please refer to [place] [employer] Diabetic care guidelines for further [...] levels of PSA measured using the Rich Zazzy DXI Hybritech immunoassay should not be interpreted [...] IN SELECTIVE PATIENTS <6.0%. PLEASE REFER TO [place] DIABETIC CARE GUIDELINES FOR FURTHER INFORMATION. 29 Anion gap measurement may be of limited value in the presence of any alkalosis, especially in a combined acid base disorder. . 30 A metabolite of Naproxen, O-desmethylnaproxen, has been shown to interfere with the Jendrassik-Cloudcroft method for measuring total bilirubin. Samples from [...] change was based on recommendations from the [place] [employer]. 35 A metabolite of Naproxen, O-desmethylnaproxen, has been shown to interfere with the Jendrassik-Cloudcroft method for measuring total bilirubin. Samples from [...] IN SELECTIVE PATIENTS <6.0%. PLEASE REFER TO [employer] DIABETIC CARE GUIDELINES FOR FURTHER INFORMATION. 41 Anion gap measurement may be of limited value in the presence of any alkalosis, especially in a combined acid base disorder. . 42 Note change in reference range as of 07/02/08. The change was based on recommendations from the [place] [employer]. 43 Please note change in [...] 5 Kidney failure <15 (or dialysis) 46 Recommended INR for Patients on Oral Anticoagulants Prophylaxis 2.0 - 3.0 Treatment of thrombosis 2.0 - 3.0 Prevention of embolism 2.0 - 3.0 Prevention of embolism from prosthetic heart valves 2.5 - 3.5 47 DIAGNOSIS,TREATMENT,AND THERAPY MUST BE BASED ON THE INR VALUE ALONE. 48 PLEASE NOTE NEW REFERENCE RANGE EFFECTIVE 09. 49 VERBAL TO DUY BY NADEEM at 0826 on 05/13/10. Results read back accurately. New Reference Range and Interpretation effective 08/15/2002 TnI (ng/ml) INTERPRETATION Less Than 0.06 ng/mL NOT SUPPORTIVE OF DIAGNOSIS OF [place] 0.06 - 0.50 ng/ml INDETERMINATE: SUGGEST SERIAL STUDIES IF CLINICALLY INDICATED. Greater than 0.5 ng/mL CONSISTENT WITH DIAGNOSIS OF [place] . 50 Anion gap measurement may be of limited value in the presence of any alkalosis, especially in a combined acid base disorder. . 51 Note change in reference range as of 07/02/08. The change was based on recommendations from the [place] [employer]. 52 Please note change in [...] IN SELECTIVE PATIENTS <6.0%. PLEASE REFER TO [employer] DIABETIC CARE GUIDELINES FOR FURTHER INFORMATION. 59 THERAPEUTIC TARGET FOR THE TREATMENT OF DIABETES MELLITUS PATIENTS IS <7% HBA1C, AND IN SELECTIVE PATIENTS <6.0%. PLEASE REFER TO [employer] DIABETIC CARE GUIDELINES FOR FURTHER INFORMATION. 60 CHOLESTEROL INTERPRETATION: Desirable: Less than 200 MG/DL Borderline-High Risk: 200-239 MG/DL High-Risk: 240 MG/DL and over 61 HDL INTERPRETATION: Undesirable: High Risk: Less than 40 MG/DL Desirable: Low Risk: Greater than 60 MG/DL 62 LDL INTERPRETATION: Low Risk Optimal Level: LDL Less than 100 MG/DL Near or Above Optimal: LDL 100-129 MG/DL Borderline High Risk: LDL 130-159 MG/DL High Risk: LDL 160-189 MG/DL Very High Risk: LDL Greater than 189 MG/DL 63 Anion gap measurement may be of limited value in the presence of any alkalosis, especially in a combined acid base disorder. . 64 Note change in reference range as of 07/02/08. The change was based on recommendations from the [employer]. 65 Please note change in reference range effective 08 . 66 Anion gap measurement may be of [...] <0.06 ng/ml NOT SUPPORTIVE OF DIAGNOSIS OF [place] 0.06 - 0.50 ng/ml INDETERMINATE: SUGGEST SERIAL STUDIES IF CLINICALLY INDICATED. > 0.5 ng/ml CONSISTENT WITH DIAGNOSIS OF [place] . 69 Anion gap measurement may be of limited value in the presence of any alkalosis, especially in a combined acid base disorder. . 70 THERAPEUTIC TARGET FOR THE TREATMENT OF DIABETES MELLITUS PATIENTS IS <7% HBA1C, AND IN SELECTIVE PATIENTS <6.0%. PLEASE REFER TO [employer] DIABETIC CARE GUIDELINES FOR FURTHER INFORMATION. 71 Classification: Desirable . 72 Classification: Low . 73 CALCULATED LDL APPROXIMATES THE VALUE OF A DIRECT LDL MEASUREMENT. Classification: Near or above optimal . 74 MICROALBUMINURIA IN A RANDOM SAMPLE IS DEFINED : MICROALBUMIN/CREATININE RATIO OF 30-299 ug/mg. . 75 Anion gap measurement may be [...] IN SELECTIVE PATIENTS <6.0%. PLEASE REFER TO [employer] DIABETIC CARE GUIDELINES FOR FURTHER [...] IN SELECTIVE PATIENTS <6.0%. PLEASE REFER TO [employer] DIABETIC CARE GUIDELINES FOR FURTHER INFORMATION. 84 THERAPEUTIC TARGET FOR THE TREATMENT OF DIABETES MELLITUS PATIENTS IS <7% HBA1C, AND IN SELECTIVE PATIENTS <6.0%. PLEASE REFER TO [employer] DIABETIC CARE GUIDELINES FOR FURTHER [...] IN SELECTIVE PATIENTS <6.0%. PLEASE REFER TO [employer] DIABETIC CARE GUIDELINES FOR FURTHER [...] IN SELECTIVE PATIENTS <6.0%. PLEASE REFER TO [employer] DIABETIC CARE GUIDELINES FOR FURTHER INFORMATION. 95 Anion gap measurement may be of limited value in the presence of any alkalosis, especially in a combined acid base disorder. . 96 Classification: Borderline High . 97 Classification: Low . 98 CALCULATED LDL APPROXIMATES THE VALUE OF A DIRECT LDL MEASUREMENT. Classification: High . 99 THERAPEUTIC TARGET FOR THE TREATMENT OF DIABETES MELLITUS PATIENTS IS <7% HBA1C. [employer] DIABETES CARE 2002;25:S33-S49. . Procedures Date CPT Code Description Status 02/04/2015 33330 Removal Of Foreign Body, Foot, Subcutaneous Completed 09/23/2012 69259 Removal-Impacted Cerumen Completed 10/01/2006 82015 EKG, at Least 12 Leads w/Interpretation and Report Completed 08/29/2006 84645 Removal Of Foreign Body Completed 06/20/2004 49181 EKG, at Least 12 Leads w/Interpretation and Report Completed Encounters Type Date Location Provider CPT E/M Dx Office Visit 11/23/2017 10:15a Main Office Danielle Morse, [employer]UC[employer]-C 89308 S92.911D E11.40 H26.9 Office Visit 10/12/2017 11:00a Main Office Angelwntkortney Morse, [employer]AR[employer] EDUCATOR-C 46860 E11.40 M54.13 F32.89 H61.22 Office Visit 09/25/2017 10:00a Main Office Mynor Dale III, [employer] SPECIAL EDUCATOR-C 76082 M54.13 Office Visit 09/10/2017 10:30a Main Office Angelwnti RubinReagan Morse, [employer] EDUCATOR-C 53823 I25.84 M54.32 M54.2 M25.512 G56.32 E11.40 Office Visit 08/20/2017 3:00p Main Office [place]ón [place] [address] J44.9 I25.84 Z23 Office Visit 06/22/2017 3:00p Main Office Angelwnti Sarkis Morse, [employer] EDUCATOR-C 25761 Z72.0 E11.65 Office Visit 04/27/2017 4:45p Main Office Haylie Pritchard M.D., R.D. 80881 N40.1 Office Visit 04/19/2017 3:45p Main Office Angelwnti Rubin. Brody, [employer] EDUCATOR-C 89110 E11.65 S61.213A H61.23 Z12.5 Z23 Office Visit 03/19/2017 3:45p Main Office Shawnti Rubin. Brody, [employer] SPECIAL EDUCATOR-C 26320 M54.17 E11.65 Office Visit 02/23/2017 4:30p Main Office Shawnti R. Brody, [employer] SPECIAL EDUCATOR-C 61826 E11.65 I25.10 M54.32 Office Visit 02/02/2017 3:00p Main Office Shawnti R. Brody, [employer] SPECIAL EDUCATOR-C 77832 E11.65 M54.32 Office Visit 01/05/2017 4:15p Main Office Shawnti R. Brody, [employer] SPECIAL EDUCATOR-C 89601 M54.32 E11.40 Office Visit 12/22/2016 3:15p Main Office Danielle Morse, [employer] EDUCATOR-C 21199 M54.32 M54.17 Office Visit 10/24/2016 3:15p Main Office Danielle Morse, [employer] EDUCATOR-C 10281 M54.32 M54.17 E11.40 F33.1 Office Visit 07/07/2016 4:00p Main Office Mynor Dale III, [employer] SPECIAL EDUCATOR-C 81652 M54.32 Office Visit 03/07/2016 10:30a Main Office Mynor Dale III, [employer] EDUCATOR-C 31453 R05 Office Visit 02/02/2016 10:45a Main Office Ramón [place] [address] J06.9 J20.9 E11.65 Office Visit 01/25/2016 1:30p Main Office Mynor Dale III, [employer] EDUCATOR-C 38682 J06.9 H60.392 Office Visit 12/30/2015 9:00a Main Office [place]ón [place] [address] B37.84 H60.392 Office Visit 10/28/2015 10:30a Main Office Danielle Morse, [employer] EDUCATOR-C 13019 E11.65 F10.19 Office Visit 10/11/2015 11:30a Main Office Danielle Morse, [employer] EDUCATOR-C 45170 E11.65 F17.218 F10.19 F33.1 Office Visit 10/04/2015 2:45p Main Office [place]ón [place] [address] H61.22 Office Visit 07/29/2015 2:45p Main Office Danielle Morse, [employer] EDUCATOR-C 46595 K21.0 M25.511 M25.512 S96.011A I80.00 F17.218 Office Visit 01/07/2015 3:15p Main Office Danielle Morse, [employer] EDUCATOR-C 37806 486 Office Visit 12/07/2014 2:30p Main Office Danielle Morse, [employer] EDUC[employer]-C 54229 250.02 608.89 785.9 Office Visit 11/19/2014 2:30p Main Office Danielle Morse, [employer] EDUC[employer]-C 18259 250.02 608.89 785.9 Office Visit 10/15/2014 2:15p Main Office Danielle Morse, [employer]UC[employer]-C 30169 250.02 296.32 303.90 608.89 Office Visit 07/02/2014 10:15a Main Office Danielle Morse, [employer] EDUCATOR-C 76207 726.19 303.90 Office Visit 09/25/2013 11:30a Main Office Danielle Morse, [employer] EDUCATOR-C 68134 726.19 Office Visit 08/14/2013 4:30p Main Office Delmy Hester M.D. 48526 728.85 Office Visit 06/16/2013 3:15p Main Office Danielle Morse, [employer]UC[employer]-C 26050 296.32 250.02 303.90 305.1 Office Visit 05/08/2013 2:30p Main Office Danielle Morse, [employer] EDUC[employer]-C 11758 296.32 250.02 Office Visit 04/21/2013 2:45p Main Office Danielle Morse, [employer] EDUCATOR-C 05858 250.00 411.89 303.90 Office Visit 04/14/2013 2:00p Main Office Danielle Morse, [employer] EDUC[employer]-C 46188 451.89 303.90 250.00 786.2 Office Visit 09/23/2012 10:45a Main Office Nevin Rios, [employer] SPECIAL EDUCATOR-C 01656 465.9 380.4 Office Visit 09/09/2012 2:15p Main Office Danielle Morse, [employer] EDUCATOR-C 85688 372.00 Office Visit 01/26/2012 4:45p Main Office Delmy Hester M.D. 31767 461.8 Office Visit 12/01/2010 9:30a Main Office Danielle Morse, [employer] EDUC[employer]-C 54839 303.90 305.1 Office Visit 11/15/2010 11:00a Main Office Danielle Morse, [employer] EDUC[employer]-C 30447 250.00 272.0 311 Office Visit 07/21/2010 9:15a Main Office Danielle Morse, [employer] EDUC[employer]-C 70702 250.00 303.90 Office Visit 06/20/2010 2:45p Main Office Danielle Morse, [facility] 13704 414.9 250.00 303.90 305.1 272.0 401.9 Office Visit 05/23/2010 2:30p Main Office Danielle Morse, [facility] 32408 250.00 414.9 Office Visit 05/02/2010 10:15a Main Office Danielle Morse, [facility] 16737 250.00 414.9 303.90 Office Visit 04/18/2010 10:45a Main Office Danielle Morse, [facility] 22426 414.9 250.00 305.1 272.0 401.9 535.00 303.90 Office Visit 11/30/2009 3:30p Main Office Mariajose Porter F.N.P.C. 04203 466.0 250.00 414.9 Office Visit 05/13/2009 10:00a Main Office Danielle Morse, [facility]- 04669 522.5 Office Visit 03/15/2009 9:15a Main Office Mariajose Porter F.N.P.C. 35277 305.1 Office Visit 09/08/2008 10:00a Main Office Mariajose Porter F.N.P.C. 18692 250.00 401.9 272.0 305.1 414.9 302.72 Office Visit 07/29/2008 2:00p Main Office Mariajose Porter F.N.P.C. 07520 724.5 723.1 305.1 250.00 272.0 401.9 Office Visit 06/12/2008 1:30p Main Office Mariajose Porter F.N.P.C. 42403 250.00 272.0 305.1 401.9 414.9 530.81 Office Visit 01/23/2008 3:00p Main Office Mariajose Porter F.N.P.C. 73548 250.00 272.0 305.1 401.9 305.00 311 Office Visit 12/19/2007 3:30p Main Office Mariajose Porter F.N.P.C. 77524 250.00 305.1 401.9 272.0 530.81 Office Visit 08/13/2007 1:00p Main Office Mariajose Porter F.N.P.C. 68357 786.2 305.1 272.0 250.00 Office Visit 07/11/2007 12:00p Main Office Mariajose Porter F.N.P.C. 32515 250.00 305.1 272.0 681.00 Office Visit 06/27/2007 11:00a Main Office Mariajose Porter F.N.P.C. 94110 681.00 305.1 250.00 272.0 Office Visit 04/03/2007 11:15a Main Office Louie Walker M.D. 90743 379.91 Office Visit 03/08/2007 10:30a Main Office Mariajose Porter F.N.P.C[facility] 60155 466.0 305.1 Office Visit 01/03/2007 2:45p Main Office Mariajose Porter F.N.P.C. 73725 311 305.1 Office Visit 12/13/2006 11:45a Main Office Mariajose Porter F.N.P.C. 16741 250.00 530.81 272.0 311 Office Visit 11/08/2006 10:00a Main Office Mariajose Porter F.N.P.C. 64232 250.00 530.81 272.0 786.50 401.9 Office Visit 10/18/2006 9:30a Main Office Mariajose Porter F.N.P.C. 71291 250.00 530.81 311 272.0 Office Visit 10/08/2006 3:00p Main Office Mariajose Porter F.N.P.C. 27415 250.00 Office Visit 10/01/2006 10:30a Main Office Mariajose Porter F.N.P.C. 95557 250.00 530.81 272.0 786.50 Office Visit 08/29/2006 2:30p [place] [address] 360.69 250.00 530.81 Office Visit 01/12/2006 1:15p Main Office Joseph Liu M.D. 89885 530.81 311 250.00 Office Visit 01/01/2006 11:00a Main Office Joseph Liu M.D. 33094 311 787.2 250.00 Office Visit 04/17/2005 11:00a Main Office Nevin Becerra M.D. 72704 726.32 311 250.00 Office Visit 01/31/2005 2:30p Main Office Nevin Becerra M.D. 04168 250.00 466.0 272.0 Office Visit 01/10/2005 2:30p Main Office Nevin Becerra M.D. 89911 250.00 311 Office Visit 12/19/2004 10:15a Main Office Nevin Becerra M.D. 36329 250.00 466.0 V58.3 Office Visit 08/08/2004 10:15a Main Office Nevin Becerra M.D. 96475 250.00 272.0 Office Visit 05/04/2004 10:15a Main Office Nevin Becerra M.D. 53666 250.00 272.0 Office Visit 04/01/2004 1:00p Main Office Nevin Becerra M.D. 12980 250.00 719.43 Office Visit 03/18/2004 2:30p Main Office Nevin Becerra M.D. 39865 250.00 401.9 Office Visit 01/27/2004 4:45p Main Office Han Williamson M.D. 59113 401.9 250.00 Office Visit 06/18/2003 10:15a Main Office Aide Willams M.D. 12612 461.0 466.0 Office Visit 02/20/2003 3:45p Main Office Nevin Becerra M.D. 56646 250.00 726.32 Office Visit 01/05/2003 9:45a Main Office Nevin Becerra M.D. 01446 250.00 Office Visit 12/03/2002 9:30a Main Office Nevin Becerra M.D. 53990 461.0 Office Visit 10/01/2002 4:30p Main Office Aied Willams M.D. 94981 466.0 Office Visit 04/29/2002 4:15p Main Office Holli EdwardN.P.CReagan 03122 726.32 726.31 Plan of Care 11/28/2017 - Ramón Patiño, MDM25.511 Pain in right shoulderComments: Injected x2 trigger points around R shoulder blade. Immediate improvement. Return to care if worsening or not improving.
--- OUTSIDE RECORDS SUMMARY | 2017-11-28 18:31 | XMS REPORT ---
:1965 External Reference #:[id number] Author Organization [facility] Address [address] [place] [address] Phone [phone] Care Team Providers Name Role Phone Louie Walker M.D. Primary Care Physician Unavailable Payers Type Date Identification Numbers Payment Provider Subscriber Commercial Policy Number: [id number] Formerly [facility] Cesar Loomis PayID: [id number] [place] [address] Problems Date Description Provider Status Onset: 02/08/2012 Alcohol dependence FITO BrownP-Alpa Active Onset: 02/08/2012 Tobacco user BRAD Brown-Alpa Active Onset: 02/08/2012 Type 2 diabetes mellitus FITO BrownP-Alpa Active Onset: 02/08/2012 Pure hypercholesterolemia Danielle Morse [employer]ICAL DEVICE SALES CONSULTANT-C Active Onset: 02/08/2012 Depressive disorder FITO BrownP-Alpa Active Onset: 02/08/2012 Chronic ischemic heart disease Danielle Morse MEDICAL DEVICE SALES CONSULTANT-Alpa Active Onset: 02/08/2012 Essential hypertension Danielle Morse MEDICAL DEVICE SALES CONSULTANT-C Active Onset: 12/07/2014 Carotid bruit FITO BrownP-C [...] M54.13 Angelwnti R. tablet Storm, by mouth [employer]ICAL DEVICE SALES CONSULTANT-C every 8 hours with food as needed for pain Oxycodone-Acetam 09/10 Active Tablets 5-325mg 14tabs 1 by M54.32 Danielle Dockery ino mouth Storm, every 4 [employer] DEVICE SALES CONSULTANT-C hours if needed for severe pain Wellbutrin SR 06/22 Active Tablets 150mg 60tabs 1 by Z72.0 Angelwnti R. ER 12HR mouth Storm, twice [employer] DEVICE SALES CONSULTANT-C daily Novolog Flexpen 02/23 Active Solution 100Unit/ML 15ml inject 5 E11.65 Angelwnti R. Pen-Injec units , t under [employer]ICAL DEVICE SALES CONSULTANT-C the skin three times a day before meals as directed Freestyle Lite 01/22 Active Strips 200unit use for E13.9 Shawnti R. s glucose Storm, monitori MEDICAL DEVICE SALES CONSULTANT-C ng 5-6 times daily Lantus Solostar 01/05 Active Solution 100Unit/ML 30ml inject E11.40 Angelwnti R. Pen-Injec 40 units Storm, t once [employer]ICAL DEVICE SALES CONSULTANT-C daily for diabetes Novofine 01/05 Active Misc 30G X 8 mm 100unit use E11.40 Angelwnti R. s daily Storm, with MEDICAL DEVICE SALES CONSULTANT-C lantus pen to administ er insulin daily Gabapentin 10/24 Active Capsules 300mg 60caps Take Two M54.32 Mynor Capsules [place] By Mouth III, MEDICAL DEVICE SALES CONSULTANT-C At Bedtime Marysol Contour 11/19 Active Kit W/Device 1units use to E11.65 Shawnti R. Blood Glucose /2014 test Storm, Monitoring blood [employer]ICAL DEVICE SALES CONSULTANT-C System sugar daily for diabetes Marysol Contour 11/19 Active Strips 100unit test 2 E11.65 Shawnti R. Blood Glucose /2014 s times Storm, Test Strips per day MEDICAL DEVICE SALES CONSULTANT-C Lancets Ultra 11/19 Active Misc Thin 30G 100unit use to E11.65 Shawnti R. Thin 30G /2014 s test Storm, blood MEDICAL DEVICE SALES CONSULTANT-C sugars twice daily and as needed Freestyle 04/21 Active Misc 100unit use to 250.00 Shawnti R. Lancets /2012 s test Storm, blood MEDICAL DEVICE SALES CONSULTANT-C sugars 4-5 times daily as needed Freestyle Test 04/18 Active Strips 1Bottle use to E11.9 Shawnti R. /2009 check Storm, blood MEDICAL DEVICE SALES CONSULTANT-C sugars four times daily Lancets--One 04/18 Active Misc 100unit use 250.00 Shawnti R. Touch Ultra Soft /2009 s daily as Storm, directed MEDICAL DEVICE SALES CONSULTANT-C to test blood sugar Tamsulosin HCL Active Capsules 0.4mg 2 tabs Ese, /0000 daily MD Titus Metoprolol Active Tablets 25mg Unknown Succinate ER /0000 ER 24HR Aspir-81 Active Tablets 325mg 1 by Unknown /0000 DR mouth every day Cyclobenzaprine 10/12 Hx Tablets 10mg 30tabs take 11/13 M54.13 Shawnti R. HCL /2016 or 1 Storm, - tablet [employer]ICAL DEVICE SALES CONSULTANT-C 11/23 by mouth /2017 three times a [...] R. 24HR one Storm, - patch to [facility] 10/12 skin, replace daily for up to 14 days then reduce to 14mg patch Nicoderm CQ 06/22 Hx Patches 14mg/24HR 28units apply Z72.0 Shawnti R. 24HR one Storm, - patch to [facility] 10/12 skin, replace daily for up to 28 days then go to 7mg Nicoderm CQ 06/22 Hx Patches 7mg/24HR 14units apply 1 Z72.[address] to [facility], - skin [facility]- 10/12 for 14 days Nicotrol 06/01 [...] Hx Kit 4% 1units [facility] 4.32 [facility] D[facility] painful Storm, - area [facility]- 04/27 once daily, do not leave on for more than 12 hours Ibuprofen 01/05 Hx Tablets 800mg 90tabs take one M54.32 Shawnti R. /2016 tablet Storm, - by mouth [facility] 08/20 every hours with food as needed for pain Lidocaine 01/05 Hx Patches 5% 30units apply M54.32 Shawnti R. one Storm, - patch to [employer]ICE SALES CONSULTANT-C 03/19 low back every night, remove in the morning Prednisone 12/22 Hx Tablets 20mg 13tabs 3 by M54.17 Danielle RReagan mouth Storm, - every [employer] DEVICE SALES CONSULTANT-C 01/01 day x 2days, 2 by mouth every day x 2 days, 1 by mouth every day x 2 days, 1/2 by mouth every day x 2 days Thiamine HCL 12/22 Hx Tablets 100mg 90tabs 1 by M54.17 Danielle RReagan mouth Storm, - every [employer] DEVICE SALES CONSULTANT-C Folic + B12 12/22 Hx Tablets 800-1000mcg 90tabs 1 po M54.17 Danielle RReagan daily Storm, - MEDICAL DEVICE SALES CONSULTANT-C 04/27 Metaxalone 07/07 Hx Tablets 800mg 30tabs 1 tab by M54.32 Mynor mouth [place] - three III, MEDICAL DEVICE SALES CONSULTANT-C 10/24 times day for muscle spasm Guaifenesin 03/07 Hx Syrup 100mg/5ML 300unit 2 s teaspoon Suyapa - every III, MEDICAL DEVICE SALES CONSULTANT-C 10/24 4- hours for cough and chest congesti on Augmentin 02/01 Hx Tablets 875-125mg 20tabs 1 take J20.9 by mouth Heetderpatrick, - tablet 10/24 every hours for 10 days for infectio n Cortisporin 12/30 Hx Solution 3.5-69503-2 60units 4 left H60.392 ear Heetjeffry, - christy VALIENTE 10/24 times day Clotrimazole 12/30 Hx Solution 1% 90units 3 drops B37.84 left ear Heetjeffry, - three 10/24 times day Glipizide 10/28 Hx Tablets 5mg 60tabs 1 po bid E11.65 Danielle Dockery for Storm, - diabetes [employer]ICAL DEVICE SALES CONSULTANT-C 10/24 , take with food Bupropion HCL ER 10/11 Hx Tablets 150mg 90tabs take 1 F33.1 Danielle Dockery (XL) ER 24HR tablet Storm, - by mouth [employer]ICAL DEVICE SALES CONSULTANT-C 02/01 morning Metformin HCL 10/11 Hx Tablets 500mg 60tabs take one E11.65 Danielle Dockery /2014 tablet Storm, - by mouth [employer]ICAL DEVICE SALES CONSULTANT-C 10/28 twice a day with food Hydrocodone-Acet 07/29 Hx Tablets 5-325mg 30tabs 1 or 2 M25.511 Danielle Dockery aminophen /2014 po QHS Storm, - prn pain [employer]ICAL DEVICE SALES CONSULTANT-C 10/11 Omeprazole 07/29 Hx Capsules 40mg 90caps 1 by K21.0 Danielle Dockery /2014 DR janett Morse, - every MEDICAL DEVICE SALES CONSULTANT-C Amoxicillin/Clav 01/07 Hx Tablets 875-125mg 20tabs 1 by 486 Danielle Dockery ulanatchristina /2014 mouth Storm, Potassium - twice a [employer]ICAL DEVICE SALES CONSULTANT-C 01/17 day for 10 days for infectio n Ventolin HFA 01/07 Hx Aerosol 108(90Base) 8gm inhale Mynor /2014 mcg/Act two Suyapa - puffs by III, MEDICAL DEVICE SALES CONSULTANT-C 04/27 mouth every 4-6 hours as needed for wheezing /SOB Viagra 11/19 Hx Tablets 100mg 2tabs take N53.8 Danielle Dockery one-half Storm, - to one [employer]ICAL DEVICE SALES CONSULTANT-C 10/11 tablet /2014 before intercou rse Levemir 11/19 Hx Solution 100Unit/ML 15ml inject E11.65 Danielle Dockery Flextouch Pen-Injec 10 units , - t before MEDICAL DEVICE SALES CONSULTANT-C 10/11 bed, increase dose by 5 units every 3 days until fasting glucose is under 200 Novofine 11/19 Hx Misc 30G X 8 mm 50units use E11.65 Danielle Dockery /2014 daily Storm, - with MEDICAL DEVICE SALES CONSULTANT-C 10/28 levimir flexpen Levitra 10/16 Hx Tablets 10mg 10tabs take 1 608.89 Danielle Dockery tablet Storm, - by mouth [employer]ICAL DEVICE SALES CONSULTANT-C 10/16 as needed prior to intercou rse. Fluoxetine HCL 10/15 Hx Capsules 20mg 30caps 1 by F33.1 Danielle Dockery mouth Storm, - every MEDICAL DEVICE SALES CONSULTANT-C Metformin HCL 10/15 Hx Tablets 500mg 60tabs take one 250.02 Shawnti R. tablet Storm, - by mouth [facility]- 11/19 twice a day with food Viagra 10/15 Hx Tablets 50mg 10tabs use 11/13 608.89 Shawnti R. to 1 tab Storm, - 1/2hr [facility]- 10/16 prior to activity Lidocaine 07/02 Hx Patches 5% 60units apply 726.19 Shawnti R. patch to Storm, - the [facility] 10/11 painful area before, remove in the morning, do not leave on for more than 12 hours. can apply up to 2 Voltaren 09/25 Hx Gel 1% 300gm apply Shawnti R. pea Storm, - sized [facility]- 10/11 amount of gel to the shoulder qid prn pain Tizanidine HCL 08/14 Hx Tablets 4mg 30tabs take one 728.85 Shawnti R. by mouth Storm, - before [facility] 10/11 bed if needed for pain and muscle spasm Naltrexone HCL 06/18 Hx Tablets 50mg 30tabs 1 po 303.90 Shawnti R. /2012 daily Storm, - [facility]- 07/02 Campral 06/16 Hx Tablets 333mg 90tabs 1 po tid 303.[address] Morse, - [facility]- 06/18 Nicoderm CQ 06/16 Hx Patches 21mg/24HR 14units apply 1 305.1 Shawnti R. 24HR patch to Storm, - skin, [facility]- 07/02 change /2013 daily for 14 days.the n go to 14mg dose Nicoderm CQ 06/16 Hx Patches 14mg/24HR 14units apply 305.1 Shawnti R. /2012 24HR one , - patch to [facility]- 07/02 skin, replace daily for 14 days, start after 21mg patches complete d. Nicoderm CQ 06/16 Hx Patches 7mg/24HR 14units apply 305.1 Shawnti R. /2012 24HR one Storm, - patch to [facility]- 07/02 skin, change daily for three weeks, start after 14mg dose is complete Fluoxetine HCL 06/16 Hx Capsules 40mg 30caps take 1 311 Shawnti R. capsule Brody, - once [employer]ICAL DEVICE SALES CONSULTANT-C 07/02 daily for depressi on Fluoxetine HCL 05/08 Hx Capsules 20mg 90caps 1 po qd 311 Shawnti R. for Storm, - depressi [employer]ICAL DEVICE SALES CONSULTANT-C 06/16 on Metformin HCL ER 05/08 Hx Tablets 500mg 30tabs take one 250.02 Shawnti R. ER 24HR tablet Brody, - by mouth [employer]ICAL DEVICE SALES CONSULTANT-C 07/02 every day for diabetes Levemir Flexpen 04/21 Hx Solution 100Unit/ML 30ml inject 250.00 Shawnti R. 10 units , - daily MEDICAL DEVICE SALES CONSULTANT-C 07/02 fatty tissue, increase dose by 2 units every other day until morning blood sugars are under 150 Flex Pen [place] 04/21 Hx 30units use with 250.00 Shawnti R. levmir Brody, - daily to MEDICAL DEVICE SALES CONSULTANT-C 07/02 inject insulin Freestyle Test 04/21 Hx Strips 200unit use to E13.9 Haylie Strips s nadia Pritchard, - blood M.Shorty, R.D. 01/22 4-5 times daily Thiamine HCL 04/14 Hx Tablets 100mg 90tabs 1 po qd 303.90 Shawnti R. , - MEDICAL DEVICE SALES CONSULTANT-C 07/02 Folic Acid 04/14 Hx Tablets 1mg 90tabs 1 po qd 303.90 Shawnti R. , - MEDICAL DEVICE SALES CONSULTANT-C 07/02 Naproxen Ec 04/14 Hx Tablets 500mg 20tabs 1 po bid 451.[address] aleyda Morse, - needed [employer]ICAL DEVICE SALES CONSULTANT-C 07/02 phlebiti sm, take with food Gentamicin 09/09 Hx Ointment 0.1% 1tube 1 cm 372.00 Shawnti R. colby Morse, - qid left [employer]ICAL DEVICE SALES CONSULTANT-C 05/08 eye for 5 days or until [...] mg mouth as Storm, - X directed MEDICAL DEVICE SALES CONSULTANT-C 05/08 Antabuse 12/01 Hx Tablets 500mg 30tabs 1 po qam 303.90 Shawnti R. Storm, - [employer]ICAL DEVICE SALES CONSULTANT-C 05/08 Nicoderm CQ 12/01 Hx Patches 21mg/24HR 14units apply 1 305.1 Shawnti R. 24HR patch to Storm, - skin, [employer] DEVICE SALES CONSULTANT-C 05/08 change daily for 14 days.the n go to 14mg dose Nicoderm CQ 12/01 Hx Patches 14mg/24HR 14units apply 305.1 Shawnti R. 24HR one Storm, - patch to [employer]ICAL DEVICE SALES CONSULTANT-C 05/08 skin, replace daily for 14 days, start after 21mg patches complete d. Nicoderm CQ 12/01 Hx Patches 7mg/24HR 14units apply 305.1 Shawnti R. 24HR one , - patch to MEDICAL DEVICE SALES CONSULTANT-C 05/08 skin, change daily for two weeks, start after 14mg dose is complete Prozac 11/15 Hx Capsules 20mg 90caps 1 po qd 311 Shawnti R. /2010 for Storm, - depressi [employer]ICAL DEVICE SALES CONSULTANT-C 05/08 on Aspirin 06/20 Hx Tablets 325mg 1 daily 414.9 Angelwnti R. /2009 for Storm, - heart [employer]ICAL DEVICE SALES CONSULTANT-C 05/08 Carvedilol 06/20 Hx Tablets 3.125mg 1 po bid 414.9 Shawnti R. /2009 for Storm, - heart [employer]ICAL DEVICE SALES CONSULTANT-C 05/08 Plavix 06/20 Hx Tablets 75mg 1 po qd 414.9 Angelwnti R. for Storm, - heart MEDICAL DEVICE SALES CONSULTANT-C 05/08 Simvastatin 06/20 Hx Tablets 80mg 1 po qhs 414.9 Shawnti R. /2009 for Storm, - choleste MEDICAL DEVICE SALES CONSULTANT-C 05/08 rol Metformin HCL ER 05/23 Hx Tablets 750mg 30tabs 1 po 250.00 Shawnti R. ER 24HR daily Storm, - for [employer]ICAL DEVICE SALES CONSULTANT-C 05/08 Diabetes Glipizide ER 05/23 Hx Tablets 2.5mg 30tabs 1 po 250.00 Shawnti R. ER 24HR daily Storm, - for MEDICAL DEVICE SALES CONSULTANT-C 05/08 diabetes Metformin HCL 05/02 Hx Tablets 500mg 30tabs 1 po qam 250.00 Shawnti R. ER 24HR for Storm, - diabetes MEDICAL DEVICE SALES CONSULTANT-C 05/23 Omeprazole 04/18 Hx Tablets 20mg 30tabs on po 535.[address] seth-ac Brody, - for MEDICAL DEVICE SALES CONSULTANT-C 06/20 stomach acid Freestyle 04/18 Hx Glucometer 1Meter use to 250.00 Shawnti R. Monitor /2009 test Storm, - blood [employer]ICAL DEVICE SALES CONSULTANT-C 05/08 sugars Contour Blood 04/18 Hx Kit w/Device 1meter use as 250.00 Shawnti R. Glucose System /2009 directed Storm, - to test MEDICAL DEVICE SALES CONSULTANT-C 04/18 blood sugar Zithromax Z-Rambo 11/30 Hx Tablets 250mg 6tabs 2 po on 466.0 Mariajose A. /2009 day 1, 1 [place], - po on [facility].N.P.C. 04/18 days 2- Augmentin 05/13 Hx Tablets 875mg 20tabs one po 522.5 Shawnti R. /2008 bid for Storm, - dental MEDICAL DEVICE SALES CONSULTANT-C 05/23 infectio n Naprosyn Ec 05/13 Hx Tablets 500mg 60tabs 1 po bid 522.5 Shawnti R. /2008 with Storm, - food for MEDICAL DEVICE SALES CONSULTANT-C 05/02 pain, /2009 stop taking if stomach pain develops Vicodin 05/13 Hx Tablets 5-500mg twenty 1-2 tabs 522.5 Shawnti R. /2008 po q6hr Storm, - prn pain MEDICAL DEVICE SALES CONSULTANT-C 05/28 Chlorhexidine 05/13 Hx Solution 0.12% 1Bottle rinse 522.5 Shawnti R. Gluconate /2008 and spit Brody, - 10ml MEDICAL DEVICE SALES CONSULTANT-C 04/18 twice daily for mouth bacteria Nicoderm [...] CPT Code Status Date Vaccine Lot # [id number] Given 08/20/2017 Pneumovax 23 (PPSV23) 65+ years or high risk 2 to [id number] 62 year old 31373 Given 08/20/2017 Influenza Virus Vaccine, Quadrivalent, 3 Yr > [id number] Quad, Preserv Free 08742 Given 04/19/2017 Tdap (Adacel) [id number] Given 12/19/2004 Tetanus 92611 Given 12/15/2004 Tetanus [id number] Refused 12/30/2015 Influenza Virus Vaccine, Quadrivalent, 3 Yr > Quad, Preserv Free Vital Signs Date Vital Result Comment 11/23/2017 Weight 175.00 lb Weight in kg's [...] 5-6 Urine Blood 50 High Neg Specific [place] 1.015 1.01-1.02 Urine Ketones 1+ High Neg [...] Color Yellow Urine Appearance Clear Urine Specific [place] 1.021 1.010-1.030 Urine pH 6.0 5-9 Urine [...] Color Yellow Urine Appearance Clear Urine Specific [place] 1.034 High 1.010-1.030 Urine Esterase Negative Negative [...] NEG Neg Urine Blood NEG Neg Specific [place] N/A Low 1.01-1.02 CBC With Electronic Diff [...] Cell Count 5.08 CUMM 4.6-6.2 Redcell Distribution WD 13 % 10.5-15 Laboratory test finding 04/05/2004 [...] Glucose By Moniter 286 High 78-110 1 Spray Mixer: [id number] 3 SEE RESULT BELOW Name: CESAR LOOMIS : [address]: Haylie Pritchard MD Acct: [id number] Unit: [id number] AGE: 51 Location: [facility] Re04/27/17 SEX: M Status: REG REF SPEC: [id number] ROEL: 04/27/17-[address]: Haylie Pritchard MD REQ: [id number] RECD: 04/27/17 STATUS: COMP _ SOURCE: URINE SPDESC: ORDERED: Urine Culture COMMENTS: [id number] Urine Source: Random Procedure Result Reported Site Urine Culture Final 04/29/17- 0805 ML No Growth (<1,000 CFU/mL) * ML - [facility] . END OF REPORT * ML=Testing performed at Main Lab DEPARTMENT OF PATHOLOGY, [address] [place] [address] Esa Daniel M.D. Director [facility] # [id number] Serum levels of PSA measured using the Rich Daisy DXI Hybritech immunoassay should not be interpreted [...] and in selective patients <6.0%.Please refer to [place] [employer] Diabetic care guidelines for further [...] and in selective patients <6.0%.Please refer to [place] [employer] Diabetic care guidelines for further information. 10 Therapeutic target for the treatment of diabetes Mellitus patients is <7% HBA1C, and in selective patients <6.0%.Please refer to [place] [employer] Diabetic care guidelines for further [...] dialysis) 16 Verbal to DANIELLE MORSE by [employer] at 2055 on 04/14/13. Results read back accurately. Verbal to answering service at 2052 on 04/14/13 by [employer]. Doctor to return call. 17 Because ethnic [...] and in selective patients <6.0%.Please refer to [place] [employer] Diabetic care guidelines for further [...] levels of PSA measured using the Rich KartoonArt DXI Hybritech immunoassay should not be interpreted [...] IN SELECTIVE PATIENTS <6.0%. PLEASE REFER TO [place] [employer] DIABETIC CARE GUIDELINES FOR FURTHER INFORMATION. 29 Anion gap measurement may be of limited value in the presence of any alkalosis, especially in a combined acid base disorder. . 30 A metabolite of Naproxen, O-desmethylnaproxen, has been shown to interfere with the Jendrassik-Hollister method for measuring total bilirubin. Samples from [...] change was based on recommendations from the [place] [employer]. 35 A metabolite of Naproxen, [...] IN SELECTIVE PATIENTS <6.0%. PLEASE REFER TO [place] [employer] DIABETIC CARE GUIDELINES FOR FURTHER INFORMATION. 41 Anion gap measurement may be of limited value in the presence of any alkalosis, especially in a combined acid base disorder. . 42 Note change in reference range as of 07/02/08. The change was based on recommendations from the [place] [employer]. 43 Please note change in reference range effective 08 . 44 A metabolite of Naproxen, O-desmethylnaproxen, has been shown to interfere with the Jendrassik-Hollister method for measuring total bilirubin. Samples from [...] 0.06 ng/mL NOT SUPPORTIVE OF DIAGNOSIS OF [place] 0.06 - 0.50 ng/ml INDETERMINATE: SUGGEST SERIAL STUDIES IF CLINICALLY INDICATED. Greater than 0.5 ng/mL CONSISTENT WITH DIAGNOSIS OF [place] . 50 Anion gap measurement may be of limited value in the presence of any alkalosis, especially in a combined acid base disorder. . 51 Note change in reference range as of 07/02/08. The change was based on recommendations from the [place] [employer]. 52 Please note change in [...] IN SELECTIVE PATIENTS <6.0%. PLEASE REFER TO [place] [employer] DIABETIC CARE GUIDELINES FOR FURTHER INFORMATION. 59 THERAPEUTIC TARGET FOR THE TREATMENT OF DIABETES MELLITUS PATIENTS IS <7% HBA1C, AND IN SELECTIVE PATIENTS <6.0%. PLEASE REFER TO [place] [employer] DIABETIC CARE GUIDELINES FOR FURTHER [...] change was based on recommendations from the [place] [employer]. 65 Please note change in [...] <0.06 ng/ml NOT SUPPORTIVE OF DIAGNOSIS OF [place] 0.06 - 0.50 ng/ml INDETERMINATE: SUGGEST SERIAL STUDIES IF CLINICALLY INDICATED. > 0.5 ng/ml CONSISTENT WITH DIAGNOSIS OF [place] . 69 Anion gap measurement may be of limited value in the presence of any alkalosis, especially in a combined acid base disorder. . 70 THERAPEUTIC TARGET FOR THE TREATMENT OF DIABETES MELLITUS PATIENTS IS <7% HBA1C, AND IN SELECTIVE PATIENTS <6.0%. PLEASE REFER TO [place] [employer] DIABETIC CARE GUIDELINES FOR FURTHER [...] IN SELECTIVE PATIENTS <6.0%. PLEASE REFER TO [place] [employer] DIABETIC CARE GUIDELINES FOR FURTHER [...] IN SELECTIVE PATIENTS <6.0%. PLEASE REFER TO [place] [employer] DIABETIC CARE GUIDELINES FOR FURTHER INFORMATION. 84 THERAPEUTIC TARGET FOR THE TREATMENT OF DIABETES MELLITUS PATIENTS IS <7% HBA1C, AND IN SELECTIVE PATIENTS <6.0%. PLEASE REFER TO [place] [employer] DIABETIC CARE GUIDELINES FOR FURTHER [...] IN SELECTIVE PATIENTS <6.0%. PLEASE REFER TO [place] [employer] DIABETIC CARE GUIDELINES FOR FURTHER [...] IN SELECTIVE PATIENTS <6.0%. PLEASE REFER TO [place] [employer] DIABETIC CARE GUIDELINES FOR FURTHER [...] OF DIABETES MELLITUS PATIENTS IS <7% HBA1C. [place] [employer] DIABETES CARE 2002;25:S33-S49. . Procedures Date CPT Code Description Status 02/04/2015 14753 Removal Of Foreign Body, Foot, Subcutaneous Completed 09/23/2012 03128 Removal-Impacted Cerumen Completed 10/01/2006 61051 EKG, at Least 12 Leads w/Interpretation and Report Completed 08/29/2006 27776 Removal Of Foreign Body Completed 06/20/2004 06389 EKG, at Least 12 Leads w/Interpretation and Report Completed Encounters Type Date Location Provider CPT E/M Dx Office Visit 10/12/2017 11:00a Main Office Shawnti Rubin. Brody, MEDICAL DEVICE SALES CONSULTANT-C 65401 E11.40 M54.13 F32.89 H61.22 Office Visit 09/25/2017 10:00a Main Office Mynor Dale III, MEDICAL DEVICE SALES CONSULTANT-C 86120 M54.13 Office Visit 09/10/2017 10:30a Main Office Shawnti R. Brody, MEDICAL DEVICE SALES CONSULTANT-C 56533 I25.84 M54.32 M54.2 M25.512 G56.32 E11.40 Office Visit 08/20/2017 3:00p Main [place] [address] J44.9 I25.84 Z23 Office Visit 06/22/2017 3:00p Main Office Shawnti R. Brody, MEDICAL DEVICE SALES CONSULTANT-C 54882 Z72.0 E11.65 Office Visit 04/27/2017 4:45p Main Office Haylie Pritchard M.D., R.D. 01411 N40.1 Office Visit 04/19/2017 3:45p Main Office Shawnti R. Brody, MEDICAL DEVICE SALES CONSULTANT-C 66725 E11.65 S61.213A H61.23 Z12.5 Z23 Office Visit 03/19/2017 3:45p Main Office Shawnti R. Brody, MEDICAL DEVICE SALES CONSULTANT-C 21120 M54.17 E11.65 Office Visit 02/23/2017 4:30p Main Office Shawnti R. Brody, MEDICAL DEVICE SALES CONSULTANT-C 72003 E11.65 I25.10 M54.32 Office Visit 02/02/2017 3:00p Main Office Shawnti R. Brody, MEDICAL DEVICE SALES CONSULTANT-C 06580 E11.65 M54.32 Office Visit 01/05/2017 4:15p Main Office Shawnti R. Brody, MEDICAL DEVICE SALES CONSULTANT-C 56133 M54.32 E11.40 Office Visit 12/22/2016 3:15p Main Office Shawnti R. Brody, MEDICAL DEVICE SALES CONSULTANT-C 08561 M54.32 M54.17 Office Visit 10/24/2016 3:15p Main Office Shawnti R. Brody, MEDICAL DEVICE SALES CONSULTANT-C 98112 M54.32 M54.17 E11.40 F33.1 Office Visit 07/07/2016 4:00p Main Office Mynor Dale III, MEDICAL DEVICE SALES CONSULTANT-C 18705 M54.32 Office Visit 03/07/2016 10:30a Main Office Mynor Dale III, MEDICAL DEVICE SALES CONSULTANT-C 97448 R05 Office Visit 02/02/2016 10:45a Main Office [place]ón [place] [address] J06.9 J20.9 E11.65 Office Visit 01/25/2016 1:30p Main Office Mynor Dale III, MEDICAL DEVICE SALES CONSULTANT-C 78863 J06.9 H60.392 Office Visit 12/30/2015 9:00a Main Office [place]ón [place] [address] B37.84 H60.392 Office Visit 10/28/2015 10:30a Main Office Danielle Morse, MEDICAL DEVICE SALES CONSULTANT-C 73881 E11.65 F10.19 Office Visit 10/11/2015 11:30a Main Office Danielle Morse, MEDICAL DEVICE SALES CONSULTANT-C 01957 E11.65 F17.218 F10.19 F33.1 Office Visit 10/04/2015 2:45p Main Office [place]ón [place] [address] H61.22 Office Visit 07/29/2015 2:45p Main Office Dnaielle Morse, MEDICAL DEVICE SALES CONSULTANT-C 62019 K21.0 M25.511 M25.512 S96.011A I80.00 F17.218 Office Visit 01/07/2015 3:15p Main Office Danielle Morse, MEDICAL DEVICE SALES CONSULTANT-C 19693 486 Office Visit 12/07/2014 2:30p Main Office Danielle Morse, MEDICAL DEVICE SALES CONSULTANT-C 11450 250.02 608.89 785.9 Office Visit 11/19/2014 2:30p Main Office Shawneshai Sarkis Morse, MEDICAL DEVICE SALES CONSULTANT-C 89374 250.02 608.89 785.9 Office Visit 10/15/2014 2:15p Main Office Angelwvanessa Morse, MEDICAL DEVICE SALES CONSULTANT-C 69814 250.02 296.32 303.90 608.89 Office Visit 07/02/2014 10:15a Main Office Angelwvanessa Morse, MEDICAL DEVICE SALES CONSULTANT-C 37380 726.19 303.90 Office Visit 09/25/2013 11:30a Main Office Danielle Morse, MEDICAL DEVICE SALES CONSULTANT-C 46068 726.19 Office Visit 08/14/2013 4:30p Main Office Delmy Hester M.D. 48385 728.85 Office Visit 06/16/2013 3:15p Main Office Angelwntkortney Morse, MEDICAL DEVICE SALES CONSULTANT-C 20423 296.32 250.02 303.90 305.1 Office Visit 05/08/2013 2:30p Main Office Shawnti Sarkis Morse, MEDICAL DEVICE SALES CONSULTANT-C 55590 296.32 250.02 Office Visit 04/21/2013 2:45p Main Office Shawnti RReagan Morse, MEDICAL DEVICE SALES CONSULTANT-C 49528 250.00 411.89 303.90 Office Visit 04/14/2013 2:00p Main Office Shawnti Sarkis Morse, MEDICAL DEVICE SALES CONSULTANT-C 67362 451.89 303.90 250.00 786.2 Office Visit 09/23/2012 10:45a Main Office Nevin Blanca, MEDICAL DEVICE SALES CONSULTANT-C 09101 465.9 380.4 Office Visit 09/09/2012 2:15p Main Office Danielle Morse, MEDICAL DEVICE SALES CONSULTANT-C 02442 372.00 Office Visit 01/26/2012 4:45p Main Office Delmy Hester M.D. 24890 461.8 Office Visit 12/01/2010 9:30a Main Office Matthewntkortney Morse, MEDICAL DEVICE SALES CONSULTANT-C 54859 303.90 305.1 Office Visit 11/15/2010 11:00a Main Office Shawnti Sarkis Morse, MEDICAL DEVICE SALES CONSULTANT-C 65192 250.00 272.0 311 Office Visit 07/21/2010 9:15a Main Office Shawnti Sarkis Morse, MEDICAL DEVICE SALES CONSULTANT-C 30420 250.00 303.90 Office Visit 06/20/2010 2:45p Main Office Shawnti R. Brody, MEDICAL DEVICE SALES CONSULTANT-C 21388 414.9 250.00 303.90 305.1 272.0 401.9 Office Visit 05/23/2010 2:30p Main Office Shawnti R. Brody, MEDICAL DEVICE SALES CONSULTANT-C 58267 250.00 414.9 Office Visit 05/02/2010 10:15a Main Office Shawnti R. Storm, [facility] 94804 250.00 414.9 303.90 Office Visit 04/18/2010 10:45a Main Office [facility] 45412 414.9 250.00 305.1 272.0 401.9 535.00 303.90 Office Visit 11/30/2009 3:30p Main Office Mariajose Porter F.N.P.C. 62184 466.0 250.00 414.9 Office Visit 05/13/2009 10:00a Main Office Danielle Morse, [facility] 88265 522.5 Office Visit 03/15/2009 9:15a Main Office Mariajose Porter F.N.P.C. 13784 305.1 Office Visit 09/08/2008 10:00a Main Office Mariajose Porter F.N.P.C. 98108 250.00 401.9 272.0 305.1 414.9 302.72 Office Visit 07/29/2008 2:00p Main Office Mariajose Porter F.N.P.C. 68032 724.5 723.1 305.1 250.00 272.0 401.9 Office Visit 06/12/2008 1:30p Main Office Mariajose Porter F.N.P.C[facility] 65648 250.00 272.0 305.1 401.9 414.9 530.81 Office Visit 01/23/2008 3:00p Main Office Mariajose Porter F.N.P.C. 13158 250.00 272.0 305.1 401.9 305.00 311 Office Visit 12/19/2007 3:30p Main Office Mariajose Porter F.N.P.C. 15221 250.00 305.1 401.9 272.0 530.81 Office Visit 08/13/2007 1:00p Main Office Mariajose Porter F.N.P.C. 25162 786.2 305.1 272.0 250.00 Office Visit 07/11/2007 12:00p Main Office Mariajose Porter F.N.P.C. 68471 250.00 305.1 272.0 681.00 Office Visit 06/27/2007 11:00a Main Office Mariajose Porter F.N.P.C. 81538 681.00 305.1 250.00 272.0 Office Visit 04/03/2007 11:15a Main Office Louie Walker M.D. 48052 379.91 Office Visit 03/08/2007 10:30a Main Office Mariajose Porter F.N.P.C[facility] 83636 466.0 305.1 Office Visit 01/03/2007 2:45p Main Office Mariajose Porter F.N.P.C[facility] 44424 311 305.1 Office Visit 12/13/2006 11:45a Main Office Mariajose Porter F.N.P.C. 90016 250.00 530.81 272.0 311 Office Visit 11/08/2006 10:00a Main Office Mariajose Porter F.N.P.C. 04736 250.00 530.81 272.0 786.50 401.9 Office Visit 10/18/2006 9:30a Main Office Mariajose Porter F.N.P.C. 78277 250.00 530.81 311 272.0 Office Visit 10/08/2006 3:00p Main Office Mariajose Porter F.N.P.C. 39519 250.00 Office Visit 10/01/2006 10:30a Main Office Mariajose Porter F.N.P.C. 42923 250.00 530.81 272.0 786.50 Office Visit 08/29/2006 2:30p [place] [address] 360.69 250.00 530.81 Office Visit 01/12/2006 1:15p Main Office Joseph Liu M.D. 47464 530.81 311 250.00 Office Visit 01/01/2006 11:00a Main Office Joseph Liu M.D. 89147 311 787.2 250.00 Office Visit 04/17/2005 11:00a Main Office Nevin Becerra M.D. 62332 726.32 311 250.00 Office Visit 01/31/2005 2:30p Main Office Nevin Becerra M.D. 02848 250.00 466.0 272.0 Office Visit 01/10/2005 2:30p Main Office Nevin Becerra M.D. 44200 250.00 311 Office Visit 12/19/2004 10:15a Main Office Nevin Becerra M.D. 66709 250.00 466.0 V58.3 Office Visit 08/08/2004 10:15a Main Office Nevin Becerra M.D. 83972 250.00 272.0 Office Visit 05/04/2004 10:15a Main Office Nevin Becerra M.D. 70893 250.00 272.0 Office Visit 04/01/2004 1:00p Main Office Nevin Becerra M.D. 46493 250.00 719.43 Office Visit 03/18/2004 2:30p Main Office Nevin Becerra M.D. 97437 250.00 401.9 Office Visit 01/27/2004 4:45p Main Office Han Williamson M.D. 99911 401.9 250.00 Office Visit 06/18/2003 10:15a Main Office Aide Willams M.D. 27480 461.0 466.0 Office Visit 02/20/2003 3:45p Main Office Nevin Becerra M.D. 79682 250.00 726.32 Office Visit 01/05/2003 9:45a Main Office Nevin Becerra M.D. 24720 250.00 Office Visit 12/03/2002 9:30a Main Office Nevin Becerra M.D. 77206 461.0 Office Visit 10/01/2002 4:30p Main Office Aide Willams M.D. 13353 466.0 Office Visit 04/29/2002 4:15p Main Office Tiffanie Edward 94601 726.32 726.31 Plan of Care 11/23/2017 - BRAD Brown-[id number] Unsp fracture of right toe(s), subs for fx janeth shore healComments:will refer to podiatry for evaluation, he has uncontrolled DM, peripheral neuropathy and a toe fracture....needs monitored healingFollow up:referral to papvaqbmI98.40 Type 2 diabetes mellitus with diabetic neuropathy, unspComments:discussed importance of restarting insulin, monitoring blood sugars, eliminating alcohol ..... discussed natural progression of uncontrolled DM and alcohol abuse, reminded him that the concerns he has are related to his uncontrolled medical conditions, can not be helped if he does not make rucvmhbK01.9 Unspecified cataractComments:he has noticed a decline in his vision, requesting a referral to opthFollow up: referral to classified advertising clerk
[2017-11-28] MEDS ORDERED: HYDROmorphone INJ* 1 MG/ML CARPUJECT SYRINGE IM ONE (20:57)
[2017-11-28] MEDS ORDERED: PROCHLORPERAZINE INJ 5 MG/ML 2 ML VIAL IM ONE ×2 (20:58→22:11)
[2017-11-28] MEDS ORDERED: Triamcinolone Acetonide* 40 MG/ML 1 ML VIAL INTRAARTIC ONE (21:09)
[2017-11-28] MEDS ORDERED: Lidocaine 1%* 5 ML VIAL ONE (21:40)
--- NOTE | 2017-11-28 21:42 | RAD ---
INDICATION: Right shoulder pain COMPARISON: None. TECHNIQUE: 4 views of the right shoulder were obtained. FINDINGS: Along the lateral superior margin of the greater tuberosity there is a punctate calcification at the expected insertion of the supraspinatus tendon. The adequately corticated bones are in normal alignment. Joint spaces appear maintained. No fracture, dislocation or focal bony abnormality is seen. IMPRESSION: FOCUS OF CALCIUM AT THE EXPECTED LOCATION OF THE SUPRASPINATUS TENDON INSERTION SITE COULD REPRESENT CALCIFIC TENDINITIS. If the patient's symptoms persist, follow-up imaging is recommended.
[2017-11-28] MEDS ORDERED: HYDROmorphone INJ* 2 MG/ML CARPUJECT SYRINGE IM ONE (22:10)
[2017-11-28] MEDS ORDERED: HYDROmorphone INJ* 1 MG/ML CARPUJECT SYRINGE ONE (22:22)
[2017-11-28 23:00] VITALS: BP 165/79
--- NOTE | 2017-11-28 23:04 | ED ---
Vincenzo Pacheco Nikita, scribed for Shorty Carson MD on 11/28/17 at 2055 . Upper Extremity Pain - HPI Summary HPI Summary: This patient is a 52 year old M presenting to ED with a chief complaint of R shoulder pain since yesterday morning s/p waking up. The CC is described as behind the shoulder. The patient rates the pain 4/10 in severity. Symptoms aggravated by lifting his R arm. Symptoms alleviated by nothing (pt was given Oxycodone at 1630 today). Patient denies recent fall or injury, numbness or tingling in his R hand. - History of Current Complaint Chief Complaint: EDExtremityUpper Stated Complaint: RT SHOULDER PAIN Time Seen by Provider: 11/28/17 20:22 Hx Obtained From: Patient Onset/Duration: Started Days Ago, Still Present Timing: Constant, Lasting Days Severity Initially: Moderate Severity Currently: Moderate Pain Location: Shoulder - R shoulder pain Aggravating Factor(s): Lifting - the R arm Alleviating Factor(s): Other - oxycodone (took 4 today; recently took 2 at 1640) Associated Signs & Symptoms: Positive: Other - Patient denies recent fall or injury, numbness or tingling in his R hand. - Allergies/Home Medications Allergies/Adverse Reactions: Allergies Allergy/AdvReac Type Severity Reaction Status Date / Time No Known Allergies Allergy Verified 05/01/17 15:47 PMH/Surg Hx/FS Hx/Imm Hx Endocrine/Hematology History: Reports: Hx Diabetes Denies: Hx Anticoagulant Therapy Cardiovascular History: Reports: Hx Angina, Hx Coronary Artery Disease, Hx Hypercholesterolemia, Hx Hypertension, Hx Myocardial Infarction Denies: Hx Pacemaker/ICD, Hx Valvular Heart Disease Respiratory History: Reports: Hx Chronic Obstructive Pulmonary Disease (COPD) Denies: Hx Asthma History: Reports: Hx Benign Prostatic Hyperplasia - recent catheter, Other Problems/Disorders Denies: Hx Renal Disease Musculoskeletal History: Reports: Hx Back Problems - pain clinic pt Sensory History: Denies: Hx Contacts or Glasses, Hx Hearing Aid Opthamlomology History: Denies: Hx Contacts or Glasses Psychiatric History: Denies: Hx Panic Disorder - Surgical History Surgery Procedure, Year, and Place: CARDIAC STENTS - ENDEAVOR DRUG ELUTING SAFE FOR UP TO 3T/CYPHER OF FOR UP TO 3T-PER MRI SAFETY-REPORTS SCANNED INTO OTHER FACILITY REPORTS. RADIAL NERVE - Lt ARM - X 2 CLEANED UP SCAR TISSUE - Immunization History Date of Influenza Vaccine: unknown Infectious Disease History: No Infectious Disease History: Denies: Traveled Outside the [place] in Last 30 Days - Family History Known Family History: Negative: Cardiac Disease - No FMHx of CAD - Social History Alcohol Use: Daily Alcohol Amount: 10+ drinks daily Hx Substance Use: No Substance Use Type: Reports: None Hx Tobacco Use: Yes Smoking Status (MU): Heavy Every Day Tobacco Smoker Type: Cigarettes Amount Used/How Often: 1-1.5 pack/day Have You Smoked in the Last Year: Yes Review of Systems Positive: Other - R shoulder pain; Patient denies recent fall or injury. Neurological: Other - denies numbness or tingling in his R hand All Other Systems Reviewed And Are Negative: Yes Physical Exam - Summary Physical Exam Summary: VITAL SIGNS: Reviewed. GENERAL: ~Patient is a well-developed and nourished MALE who is lying comfortable in the stretcher. Patient is not in any acute respiratory distress. HEAD AND FACE: No signs of trauma. No ecchymosis, hematomas or skull depressions. No sinus tenderness. EYES: PERRLA, EOMI x 2, No injected conjunctiva, no nystagmus. EARS: Hearing grossly intact. Ear canals and tympanic membranes are within normal limits. MOUTH: Oropharynx within normal limits. NECK: Supple, trachea is midline, no adenopathy, no JVD, no carotid bruit, no c- spine tenderness, neck with full ROM. CHEST: Symmetric, no tenderness at palpation LUNGS: Clear to auscultation bilaterally. No wheezing or crackles. CVS: Regular rate and rhythm, S1 and S2 present, no murmurs or gallops appreciated. ABDOMEN: Soft, non-tender. No signs of distention. No rebound no guarding, and no masses palpated. Bowel sounds are normal. EXTREMITIES: Tenderness of the R proximal biceps tendon and the bicipital groove , significant reduction of abduction and flexion because of the pain, no edema, no cyanosis or clubbing. NEURO: Alert and oriented x 3. No acute neurological deficits. Speech is normal and follows commands. Neurovascular exam is intact distally. SKIN: Dry and warm Triage Information Reviewed: Yes Vital Signs On Initial Exam: Initial Vitals Temp Pulse Resp BP Pulse Ox 98.5 F 81 20 146/70 98 11/28/17 17:42 11/28/17 17:42 11/28/17 17:42 11/28/17 17:42 11/28/17 17:42 Vital Signs Reviewed: Yes - Mcgregor Coma Scale Coma Scale Total: 15 Procedures - Procedure Summary Procedure Summary: Pt was given an injection in the Bicipital tendon. Consent was obtained from the patient. Kenalog (40 mg) and 0.5 cc of 1% Lido was used. Patient was palpated in the most tender area in the R bicipital groove. Injection angle was at 20 degrees. Medicine was injected. Patient had some relief after but is still complaining of pain in the R shoulder with difficulty moving. Diagnostics - Vital Signs Vital Signs Temp Pulse Resp BP Pulse Ox 11/28/17 20:12 85 99 11/28/17 20:09 170/75 11/28/17 17:42 98.5 F 81 20 146/70 98 - Laboratory Lab Statement: Any lab studies that have been ordered have been reviewed, and results considered in the medical decision making process. - Radiology R Shoulder XR Radiology Interpretation Completed By: Radiologist - FOCUS OF CALCIUM AT THE EXPECTED LOCATION OF THE SUPRASPINATUS TENDON INSERTION SITE COULD REPRESENT CALCIFIC TENDINITIS. ED physician has reviewed this radiology report. Re-Evaluation - Re-Evaluation First Eval Re-Evaluation Time: 21:45 Comment: Discussed results with pt. Second Eval Re-Evaluation Time: 22:40 Comment: Discussed discharge plan with the patient. Course/Dx - Course Assessment/Plan: This patient is a 52 year old M presenting to ED with a chief complaint of R shoulder pain since yesterday morning s/p waking up. Pt was given an injection in the Bicipital tendon. Consent was obtained from the patient. Pt will be discharged home with Percocet for pain and instructions to follow up with Dr. Epstein. Pt was given a sling for comfort. Pt is agreeable with this plan. - Diagnoses Differential Diagnosis/HQI/PQRI: Positive: Other - R shoulder pain, tendinitis Provider Diagnoses: Right shoulder pain, Tendinitis Discharge - Discharge Plan Condition: Stable Disposition: HOME Patient Education Materials: Shoulder Pain (ED), Tendinitis (ED) Referrals: Wes Epstein MD [Medical Doctor] - (Follow up with Dr. Epstein in 1-2 days.) Additional Instructions: RETURN TO EMERGENCY DEPARTMENT FOR ANY NEW OR WORSENING SYMPTOMS. The documentation as recorded by the Vincenzo padgett Nikita accurately reflects the service I personally performed and the decisions made by , Shorty Carson MD.
== END 2017-11-28 23:01 | disposition home or self-care (01) ==
LOC: ED 17:35
DX: M25.511 Pain in right shoulder (principal); M77.9 Enthesopathy, unspecified; F17.210 Nicotine dependence, cigarettes, uncomplicated
CPT/HCPCS: 96372; 99282; J0780; J1170; J3301

== ENCOUNTER 2018-02-02 01:02 | Emergency (ER) | payer OTHER ==
[2018-02-02 04:15] VITALS: BP 109/69
--- NOTE | 2018-02-02 23:11 | ED ---
Placido Pacheco Sixian, scribed for Jasmeet Hendrickson MD on 02/02/18 at 0245 . GI/ HPI - HPI Summary HPI Summary: This patient is a 52 year old M presenting to ED with a chief complaint of urinary retnetion complaints since 0000 today. Patient reports, pressure in his abdomen and incomplete bladder emptying. Pt states he is not able to urinate and feels as if he is "filling up" due to consumption of beers. pt denies any abdominal pain or discomfort. pt denies dysuria or hematuria. - History of Current Complaint Chief Complaint: EDUrogenitalProblems Time Seen by Provider: 02/02/18 02:29 Stated Complaint: CONSTIPATION Hx Obtained From: Patient Onset/Duration: Started Hours Ago, Still Present Timing: Constant, Lasting Hours Current Severity: Moderate Pain Intensity: 6 Associated Signs and Symptoms: Positive: Other: - Patient reports dysuria, pressure in his abdomen. Aggravating Factor(s): Nothing Alleviating Factor(s): Nothing - Allergy/Home Medications Allergies/Adverse Reactions: Allergies Allergy/AdvReac Type Severity Reaction Status Date / Time No Known Allergies Allergy Verified 02/02/18 01:07 PMH/Surg Hx/FS Hx/Imm Hx Endocrine/Hematology History: Reports: Hx Diabetes Denies: Hx Anticoagulant Therapy Cardiovascular History: Reports: Hx Angina, Hx Coronary Artery Disease, Hx Hypercholesterolemia, Hx Hypertension, Hx Myocardial Infarction Denies: Hx Pacemaker/ICD, Hx Valvular Heart Disease Respiratory History: Reports: Hx Chronic Obstructive Pulmonary Disease (COPD) Denies: Hx Asthma History: Reports: Hx Benign Prostatic Hyperplasia - recent catheter, Other Problems/Disorders - Urinary retention Denies: Hx Renal Disease Musculoskeletal History: Reports: Hx Back Problems - pain clinic pt Sensory History: Denies: Hx Contacts or Glasses, Hx Hearing Aid Opthamlomology History: Denies: Hx Contacts or Glasses Psychiatric History: Denies: Hx Panic Disorder - Surgical History Surgery Procedure, Year, and Place: CARDIAC STENTS - ENDEAVOR DRUG ELUTING SAFE FOR UP TO 3T/CYPHER OF FOR UP TO 3T-PER MRI SAFETY-REPORTS SCANNED INTO OTHER FACILITY REPORTS. RADIAL NERVE - Lt ARM - X 2 CLEANED UP SCAR TISSUE - Immunization History Date of Tetanus Vaccine: 2014 Date of Influenza Vaccine: 2017 Infectious Disease History: No Infectious Disease History: Denies: Traveled Outside the [place] in Last 30 Days - Family History Known Family History: Negative: Cardiac Disease - No FMHx of CAD - Social History Alcohol Use: Daily Alcohol Amount: 10+ drinks daily Hx Substance Use: No Substance Use Type: Reports: None Hx Tobacco Use: Yes Smoking Status (MU): Heavy Every Day Tobacco Smoker Type: Cigarettes Amount Used/How Often: 1-1.5 pack/day Have You Smoked in the Last Year: Yes Review of Systems Positive: Other - abdominal pressure Positive: dysuria All Other Systems Reviewed And Are Negative: Yes Physical Exam - Summary Physical Exam Summary: Appearance: Well-appearing, no distress, Well-nourished Skin: Warm, color reflects adequate perfusion Head: Normal Head/Face inspection Eyes: Conjunctiva clear ENT: Normal inspection Neck: Supple, no nodes, no JVD. Respiratory: Lungs clear, Normal breath sounds, no respiratory distress Cardio: RRR, No murmur, pulses normal, brisk capillary refill Abdomen: soft, nontender, no guarding, no rebound Bowel sounds: present Musculoskeletal: Strength Intact/ ROM intact. No calf tenderness. No edema. Neuro: Alert, muscle tone normal, facial symmetry, speech normal, sensory/motor intact Psychological: Normal Triage Information Reviewed: Yes Vital Signs On Initial Exam: Initial Vitals Temp Pulse Resp BP Pulse Ox 97.9 F 99 18 159/85 97 02/02/18 01:04 02/02/18 01:04 02/02/18 01:04 02/02/18 01:04 02/02/18 01:04 Vital Signs Reviewed: Yes Diagnostics - Vital Signs Vital Signs Temp Pulse Resp BP Pulse Ox 02/02/18 01:04 97.9 F 99 18 159/85 97 - Laboratory Lab Statement: Any lab studies that have been ordered have been reviewed, and results considered in the medical decision making process. Re-Evaluation - Re-Evaluation First Eval Re-Evaluation Time: 03:55 Change: Improved Comment: Pt resting comfortably in bed. Straight cath done with 600ml UOP. Pt states fullness resolved. Pt refusing browning placement at this time, however will decrease beer consumption and f/u with Urology. GIGU Course/Dx - Diagnoses Differential Diagnoses - Male: Bladder Dysfunction, Bowel Obstruction, Cystitis , Foreign Body, Gastritis, Renal Calculi, Renal Colic, Urethritis, Urinary Tract Infection Provider Diagnoses: Urinary retention Discharge - Sign-Out/Discharge Documenting (check all that apply): Discharge - Discharge Plan Condition: Improved Disposition: HOME Patient Education Materials: Urinary Retention in Men (ED) Referrals: Yaritza Skinner, RN CHARGE [Primary Care Provider] - Titus Mulligan MD [Medical Doctor] - 3 Days Additional Instructions: RETURN TO THE EMERGENCY DEPARTMENT FOR CHANGING OR WORSENING SYMPTOMS. - Billing Disposition and Condition Condition: IMPROVED Disposition: HOME The documentation as recorded by the Placido padgett Sixian accurately reflects the service I personally performed and the decisions made by , Jasmeet Hendrickson MD.
== END 2018-02-02 04:12 | disposition home or self-care (01) ==
LOC: ED 01:02
DX: N40.1 Benign prostatic hyperplasia with lower urinary tract symptoms (principal); R33.8 Other retention of urine; R30.0 Dysuria; E11.9 Type 2 diabetes mellitus without complications; Z79.4 Long term (current) use of insulin; I25.119 Atherosclerotic heart disease of native coronary artery with unspecified angina pectoris; I10 Essential (primary) hypertension; I25.2 Old myocardial infarction; Z95.5 Presence of coronary angioplasty implant and graft; E78.00 Pure hypercholesterolemia, unspecified; J44.9 Chronic obstructive pulmonary disease, unspecified; F17.210 Nicotine dependence, cigarettes, uncomplicated
CPT/HCPCS: 99282

== ENCOUNTER 2019-08-02 12:31 | Emergency (ER) | payer MEDICARE ==
[2019-08-02 12:38] VITALS: BP 176/90
--- OUTSIDE RECORDS SUMMARY | 2019-08-02 12:43 | XMS REPORT | Continuity of Care Document ---
:1965 External Reference #:[id number] Author Name Giovanna Faria M.D. (transmitted by agent of provider Elizabeth Prater) Address [address] [place] [id number] Care Team Providers Name Role Phone Louie Walker M.D. 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 Onset: 05/28/2013 Electrocardiogram abnormal Giovanna Faria M.D. Onset: 05/28/2013 Benign essential hypertension Giovanna Faria M.D. Onset: 05/28/2013 Old myocardial infarction Giovanna Faria M.D. Onset: 05/28/2013 Hyperlipidemia Giovanna Faria M.D. Onset: 05/28/2013 Lesion of ulnar nerve Wes Epstein M.D. Onset: 08/11/2015 Lateral epicondylitis Nicolette Martin MD Onset: 12/10/2015 Carpal tunnel syndrome Nicolette Martin MD Onset: 12/10/2015 Type 2 diabetes mellitus with diabetic Nicolette Martin MD Onset: 12/10/2015 polyneuropathy Essential hypertension Giovanna Faria M.D. Onset: 04/04/2017 Localized, primary osteoarthritis of Amisha Grigsby M.D. Onset: 12/03/2017 the shoulder region Calcium deposits in tendon Amisha Grigsby M.D. Onset: 12/03/2017 Social History Type Date Description Comments Sex Unknown ETOH Use Consumes 2 six packs of beer per day Recreational Drug Use Denies Drug Use Tobacco Use Start: Unknown Heavy tobacco smoker (more than 10 cigarettes/day) Smoking Status Reviewed: 07/15/19 Heavy tobacco smoker (more than 10 cigarettes/day) Exercise Type/Frequency Exercises sporadically Allergies, Adverse Reactions, Alerts Description No Known Drug Allergies Medications Active Medications SIG Qnty Indications Ordering Provider Date Flomax 1 by mouth twice Unknown 0.4mg Capsules daily Medications Administered in Office Medication SIG Qnty Indications Ordering Provider Date Depomedrol 40MG Amisha Grigsby M.D. 12/03/2017 Injection Celestone 3 mg and 3mg Nidia Khan M.D. 11/27/2013 Injection Immunizations Description No Information Available Vital Signs Date Vital Result Comment 07/15/2019 9:35am Height 68 inches 5'8" Weight 161.75 lb with shoes Heart Rate 94 /min radial, regular BP Systolic Sitting 142 mmHg Ra, reg cuff BP Diastolic Sitting 86 mmHg Ra, reg cuff BP Systolic Standing 140 mmHg Ra, reg cuff BP Diastolic Standing 80 mmHg Ra, reg cuff BMI (Body Mass Index) 24.6 kg/m2 Ejection Fraction 50%-55% echo 09/18/17 04/23/2018 3:47pm Height 68 inches 5'8" Weight 172.50 lb w/shoes Heart Rate 94 /min BP Systolic Sitting 140 mmHg lue reg cuff BP Diastolic Sitting 78 mmHg lue reg cuff BMI (Body Mass Index) 26.2 kg/m2 Ejection Fraction 50-55% echo 09/18/2017 Results Description No Information Available Procedures Date Code Description Status 07/15/2019 42875 EKG Tracing & Interpretation Completed Medical Devices Description No Information Available Encounters Description No Information Available Assessments Date Code Description Provider 07/15/2019 I10 Essential (primary) hypertension Giovanna Faria M.D. 07/15/2019 Z95.1 Presence of aortocoronary bypass graft Giovanna Faria M.D. 07/15/2019 F17.210 Nicotine dependence, cigarettes, Giovanna Faria M.D. uncomplicated 07/15/2019 I25.10 Atherosclerotic heart disease of Giovanna Faria M.D. [place] coronary artery without angina pectoris 07/15/2019 R06.02 Shortness of breath Giovanna Faria M.D. 07/15/2019 R07.9 Chest pain, unspecified Giovanna Faria M.D. Plan of Treatment 07/15/2019 - Giovanna Faria M.D.I10 Essential (primary) cvwcytvnkmayC11.1 Presence of aortocoronary bypass hfpdfH67.210 Nicotine dependence, cigarettes, tmygwegsfxojmZ54.10 Atherosclerotic heart disease of [place] coronary artery without angina pectorisFollow up:one yr ovR06.02 Shortness of gngxglN76.9 Chest pain, unspecified Functional Status Description No Information Available Mental Status Description No Information Available Referrals Description No Information Available
== END 2019-08-02 14:07 | disposition left against medical advice (07) ==
LOC: ED 12:31
DX: Z53.21 Procedure and treatment not carried out due to patient leaving prior to being seen by health care provider (principal); R10.9 Unspecified abdominal pain
CPT/HCPCS: 99282

== ENCOUNTER 2022-09-28 11:25 | Inpatient (IN) ==
[2022-09-28] MEDS ORDERED: TENECTEPLASE 50 MG VIAL KIT 5 MG/ML (reconstituted) IV ONE ×2 (11:55→11:58)
[2022-09-28] MEDS ORDERED: Iodixanol (CONTRAST) 320 MG/ML 100 ML SDV IV ONE (12:06)
[2022-09-28 12:23] LABS: ABS Basophils 0.1 10^3/ul (0-0.2); ABS Eosinophils 0.2 10^3/ul (0-0.6); ABS Monocytes 0.5 10^3/ul (0-0.8); ABS Neutrophils 5.1 10^3/ul (1.5-7.7); Eosinophil % 2.1 %; Hematocrit 39 % (42-52); Hemoglobin 12.9 g/dL (14.0-18.0); Lymphocyte % 26.1 %; Mean Corpuscular HGB Conc 33 g/dL (31-36); Mean Corpuscular Hemoglobin 28 pg (27-31); Mean Corpuscular Volume 85 fL (80-94); Mean Platelet Volume 7.8 fL (7.4-10.4); Platelet Count 362 10^3/uL (150-450); Red Cell Distribution Width 14 % (10-15); White Blood Count 7.8 10^3/uL (3.5-10.8)
[2022-09-28 12:46] LABS: Albumin 3.9 g/dL (3.2-5.2)
[2022-09-28 12:53] LABS: Albumin/Globulin Ratio 1.3 (1-3); Globulin 2.9 g/dL (2-4); Total Protein 6.8 g/dL (6.4-8.9)
[2022-09-28 12:54] LABS: Calcium 9.5 mg/dL (8.6-10.3); Potassium 4.6 mmol/L (3.5-5.0); Total Bilirubin 0.6 mg/dL (0.2-1.0); eGFR CKD-EPI 36.9 (>60)
[2022-09-28] MEDS ORDERED: NS 0.9% 1000 ml BAG 1,000 ML IV ONE (13:38)
[2022-09-28 16:36] LABS: Magnesium 1.8 mg/dL (1.9-2.7)
[2022-09-28] MEDS ORDERED: Magnesium Sulfate 2 gm BAG 2 GM/50 ML BAG IVPB ONE (16:47)
[2022-09-28] MEDS ORDERED: Polyethylene Glycol 3350 17 GM PACKET PO PRN (16:51)
[2022-09-28] MEDS ORDERED: Senna TAB 8.6 mg TAB PO PRN (16:51)
[2022-09-28] MEDS ORDERED: Dextrose 50% Syringe 50 ml 25 GM/50 ML SYRINGE IV PUSH PRN (17:00)
[2022-09-28] MEDS: Senna TAB 8.6 mg TAB PO SCH (21:07)
[2022-09-29 03:30] LABS: Urine Creatinine Concentration 152.76 mg/dL; Urine Potassium Concentration 28.1 mmol/L
[2022-09-29 03:44] LABS: Activated Partial Thrombo Time 35.1 seconds (26.0-38.0); INR 0.99 (0.89-1.11)
[2022-09-29 06:13] LABS: ABS Basophils 0.1 10^3/ul (0-0.2); ABS Eosinophils 0.2 10^3/ul (0-0.6); ABS Lymphocytes 1.9 10^3/ul (1.0-4.8); ABS Monocytes 0.6 10^3/ul (0-0.8); ABS Neutrophils 4.4 10^3/ul (1.5-7.7); Eosinophil % 2.7 %; Hematocrit 34 % (42-52); Hemoglobin 11.3 g/dL (14.0-18.0); Lymphocyte % 26.3 %; Mean Corpuscular HGB Conc 34 g/dL (31-36); Mean Corpuscular Hemoglobin 28 pg (27-31); Mean Corpuscular Volume 83 fL (80-94); Mean Platelet Volume 7.7 fL (7.4-10.4); Platelet Count 337 10^3/uL (150-450); Red Blood Count 4.08 10^6 /uL (4.18-5.48); Red Cell Distribution Width 14 % (10-15); White Blood Count 7.2 10^3/uL (3.5-10.8)
[2022-09-29 06:43] LABS: Albumin 3.2 g/dL (3.2-5.2); Albumin/Globulin Ratio 1.2 (1-3); Calcium 8.5 mg/dL (8.6-10.3); Globulin 2.7 g/dL (2-4); Potassium 4.7 mmol/L (3.5-5.0); Total Bilirubin 0.4 mg/dL (0.2-1.0); Total Protein 5.9 g/dL (6.4-8.9); eGFR CKD-EPI 42.3 (>60)
[2022-09-29 06:49] LABS: PSA Screening Total 14.725 ng/mL (0-4.000)
[2022-09-29 06:55] LABS: TSH Ultra Thyroid Stim Horm 1.6 mcIU/mL (0.34-5.60)
[2022-09-29] MEDS ORDERED: Pneumococcal Vac 23-Polyvalent IM ONE (09:00)
[2022-09-29] MEDS: Nicotine PATCH 21 MG/24 HR PATCH TRANSDERM SCH (09:06)
[2022-09-29] MEDS: Polyethylene Glycol 3350 17 GM PACKET PO SCH (09:07)
[2022-09-29] MEDS: NORMOSOL-R pH 7.4 1000 mL BAG 1,000 ML IV SCH (11:43)
[2022-09-29] MEDS ORDERED: Nicotine PATCH 21 MG/24 HR PATCH TRANSDERM ONE (19:47)
[2022-09-29] MEDS: Senna TAB 8.6 mg TAB PO SCH (20:19)
[2022-09-30] MEDS: NORMOSOL-R pH 7.4 1000 mL BAG 1,000 ML IV SCH (05:21)
[2022-09-30 05:47] LABS: ABS Basophils 0.1 10^3/ul (0-0.2); ABS Eosinophils 0.3 10^3/ul (0-0.6); ABS Lymphocytes 1.7 10^3/ul (1.0-4.8); ABS Monocytes 0.6 10^3/ul (0-0.8); ABS Neutrophils 4.1 10^3/ul (1.5-7.7); Eosinophil % 4.2 %; Hematocrit 33 % (42-52); Hemoglobin 11.6 g/dL (14.0-18.0); Lymphocyte % 25.4 %; Mean Corpuscular HGB Conc 35 g/dL (31-36); Mean Corpuscular Hemoglobin 29 pg (27-31); Mean Corpuscular Volume 83 fL (80-94); Mean Platelet Volume 7.7 fL (7.4-10.4); Platelet Count 319 10^3/uL (150-450); Red Blood Count 4.01 10^6 /uL (4.18-5.48); Red Cell Distribution Width 14 % (10-15); White Blood Count 6.7 10^3/uL (3.5-10.8)
[2022-09-30 06:51] LABS: Calcium 8.6 mg/dL (8.6-10.3); Magnesium 2.1 mg/dL (1.9-2.7); Phosphorus 2.9 mg/dL (2.5-5.0); Potassium 4.7 mmol/L (3.5-5.0); eGFR CKD-EPI 58.4 (>60)
[2022-09-30] MEDS: Nicotine PATCH 21 MG/24 HR PATCH TRANSDERM SCH (08:47)
[2022-09-30] MEDS ORDERED: Senna TAB 8.6 mg TAB PO ONE (08:56)
[2022-09-30] MEDS: Polyethylene Glycol 3350 17 GM PACKET PO SCH (10:21)
[2022-09-30] MEDS ORDERED: Benzocaine/Menthol LOZ PO PRN (11:03)
[2022-09-30 15:33] VITALS: BP 112/38
== END 2022-09-30 16:55 | disposition home or self-care (01) | DRG 61 ==
LOC: ED 11:25 → EDHOLD 13:54 → ICU 15:36
PROVIDERS: ADMIT Internal Medicine; ATTEND Internal Medicine

== ENCOUNTER 2023-10-01 06:47 | Observation (INO) ==
[~2023-10-01 06:47] MED LIST: HYDROmorphone 1 MG/1 ML SYRINGE IV PRN; Naloxone 0.4 mg VIAL 0.4 mg/ml 1 ml VIAL IV PRN; Ondansetron 4 mg VIAL 2 MG/ML 2 ml VIAL IV PRN; fentaNYL 100 mcg/2 ml 50 MCG/ML VIAL IV PRN
[2023-10-01] MEDS ORDERED: cefTRIAXone 2 gm/50 mL D5W 2 GM/50 ML BAG IV ONE (07:44)
[2023-10-01] MEDS ORDERED: Midazolam 2 mg/2 ml VIAL 1 mg/ml 2 ml VIAL (2 mg) ONE (07:55)
[2023-10-01] MEDS ORDERED: Lidocaine 2% PF 5 ML VIAL ONE (07:57)
[2023-10-01 08:31] LABS: Rapid COVID-19 Molecular Undetected (Undetected)
[2023-10-01] MEDS ORDERED: fentaNYL 100 mcg/2 ml 50 MCG/ML VIAL ONE (08:43)
[2023-10-01] MEDS ORDERED: Phenylephrine IV 10 MG/ML 1 ml VIAL ONE (08:43)
[2023-10-01] MEDS ORDERED: Propofol 10 MG/ML 20 ML BTL ONE (09:22)
[2023-10-01] MEDS ORDERED: Furosemide 20 mg/2 ml IV VIAL ONE (09:25)
[2023-10-01] MEDS ORDERED: Buffered Lidocaine 1% SYRIN 1 ml INTRADERM ONE (10:29)
[2023-10-01] MEDS ORDERED: Lactated Ringers 1000 ml BAG 1,000 ML IV SCH (11:00)
[2023-10-01] MEDS: LACTATED RINGERS 1000 ML BAG IV SCH ×2 (14:43→21:21)
[2023-10-01] MEDS: DORZOLAMIDE BOTH EYES SCH ×2 (15:01→21:19)
[2023-10-01] MEDS: TIMOLOL BOTH EYES SCH ×2 (15:01→21:19)
[2023-10-01] MEDS: PTO:Brimonidine 0.2% 5 ML BTL LEFT EYE SCH ×2 (15:36→21:18)
[2023-10-01] MEDS: Calcium/Vitamin D TAB 250/125 TAB PO SCH (21:24)
[2023-10-02] MEDS: LACTATED RINGERS 1000 ML BAG IV SCH (03:52)
[2023-10-02] MEDS ORDERED: cefTRIAXone 2 gm/50 mL D5W 2 GM/50 ML BAG IV ONE (08:00)
[2023-10-02 08:14] LABS: Calcium 8.8 mg/dL (8.6-10.3); Creatinine, Serum 1.29 mg/dL (0.67-1.17); Potassium 3.8 mmol/L (3.5-5.0); eGFR CKD-EPI 63.5 (>60)
[2023-10-02] MEDS: Calcium/Vitamin D TAB 250/125 TAB PO SCH (08:52)
[2023-10-02] MEDS: DORZOLAMIDE BOTH EYES SCH (08:55)
[2023-10-02] MEDS: PTO:Brimonidine 0.2% 5 ML BTL LEFT EYE SCH (08:55)
[2023-10-02] MEDS: TIMOLOL BOTH EYES SCH (08:55)
[2023-10-02] MEDS ORDERED: CMCS: SitaGLIPtin 25mg TAB (NF) 25 MG TAB PO SCH (09:00)
[2023-10-02] MEDS ORDERED: CMCS: DAPAGLIFLOZIN 10 MG TAB (NF) PO SCH (09:00)
[2023-10-02 10:53] VITALS: BP 134/49
== END 2023-10-02 12:05 | disposition home or self-care (01) ==
LOC: SSU 06:47 → OR 06:47
PROVIDERS: ADMIT Urology; ATTEND Urology